=== PATIENT | female | born 1955 | race Caucasian/White ===

== ENCOUNTER → 2017-10-14 | Day surgery (SDC) | payer BC ==
[2017-10-11 11:15] VITALS: BMI 32.9
[~2017-10-14] MED LIST: LACTATED RINGERS 1,000 ML IV SCH; LIDOCAINE 1% 20 ML VIAL (10MG/ML) FOR IV START INTRADERMA ONE; LIDOCAINE 1% INJ 10MG/ML (20 ML MDV) ONE; PROPOFOL 10 MG/ML 20 ML VIAL IV ONE
[2017-10-14 11:25] VITALS: TEMP 98.1
[2017-10-14 11:40] LABS: Glucose,Whole Blood 119 mg/dL (75-99)
--- NOTE | 2017-10-14 12:37 | P.GSHP ---
History of Present Illness H&P Date: 10/14/17 Chief Complaint: GERD, diverticulitis This is a 62-year-old female referred from Dr. Bhavya Castellon. Patient presents today for EGD and colonoscopy. She's had complaints of GERD. She is a previous history of diverticulitis. Past Medical History Past Medical History: Diabetes Mellitus, Eye Disorder, GERD/Reflux, Hyperlipidemia, Hypertension Additional Past Medical History / Comment(s): bilat glaucoma History of Any Multi-Drug Resistant Organisms: None Reported Additional Past Surgical History / Comment(s): COLONOSCOPY Past Anesthesia/Blood Transfusion Reactions: Motion Sickness Smoking Status: Former smoker - Past Family History Mother Family Medical History: Cancer Brother(s) Family Medical History: Cancer Sister(s) Family Medical History: Cancer Medications and Allergies Home Medications Medication Instructions Recorded Confirmed Type 5-Hydroxytryptophan (5-Htp) [5-Htp 100 mg PO DAILY 10/11/17 10/14/17 History (Natrol)] Atorvastatin [Lipitor] 20 mg PO HS 10/11/17 10/14/17 History Cyanocobalamin (Vitamin B-12) 1,000 mcg PO DAILY 10/11/17 10/14/17 History [Vitamin B-12] Ergocalciferol [Vitamin D2] 50,000 unit PO WE 10/11/17 10/14/17 History L.acidoph,Paracasei, B.lactis 1 each PO DAILY 10/11/17 10/14/17 History [Probiotic] Lisinopril-Hctz 20-25 mg 1 each PO DAILY 10/11/17 10/14/17 History [Zestoretic 20-25] Magnesium Gluconate [Magonate] 500 mg PO DAILY 10/11/17 10/14/17 History Metoprolol Succinate [Toprol XL] 100 mg PO DAILY 10/11/17 10/14/17 History [place]-3 Fatty Acids/Fish Oil [Fish 1 each PO DAILY 10/11/17 10/14/17 History Oil 1,000 mg Softgel] metFORMIN HCL [Glucophage] 500 mg PO DAILY 10/11/17 10/14/17 History Allergies Allergy/AdvReac Type Severity Reaction Status Date / Time No Known Allergies Allergy Verified 10/14/17 11:10 Surgical - Exam Vital Signs Temp Pulse Resp BP Pulse Ox 98.1 F 60 18 131/79 97 11/16/17 11:07 10/14/17 11:07 10/14/17 11:07 10/14/17 11:07 10/14/17 11:07 - General well developed, no distress - Eyes PERRL - ENT normal pinna - Neck no masses - Respiratory normal expansion - Cardiovascular Rhythm: regular - Abdomen Abdomen: soft, non tender Results - Labs Abnormal Lab Results - Last 24 Hours (Table) 10/14/17 Range/Units 11:34 POC Glucose (mg/dL) 119 H (75-99) mg/dL Assessment and Plan Assessment: GERD, diverticulitis. We'll perform EGD and colonoscopy.
--- NOTE | 2017-10-14 12:58 | P.OP ---
Date of Procedure: 10/14/17 Preoperative Diagnosis: GERD Diverticulitis Postoperative Diagnosis: Antral gastritis Hiatal hernia Esophagitis Severe diverticulosis of sigmoid colon Incomplete colonoscopy secondary to patient's inability to retain air in the colon Severe external hemorrhoids Procedure(s) Performed: EGD Colonoscopy Anesthesia: MAC Surgeon: Jonh Osborne Pathology: other (Antrum, esophagus) Condition: stable Disposition: PACU Description of Procedure: The patient's placed on the endoscopy table in the lateral position. She received IV sedation. The gastroscope placed oropharynx and passed into the esophagus and into the stomach. The scope was then placed through the pylorus. The first and second portion of the duodenum appeared normal. Scope was then brought back the antrum and this was mildly inflamed and a biopsies performed. The scope was unretroflexed and remainder of the stomach appeared normal. There is moderate size hiatal hernia. The GE junction was at 38 cm. The distal esophagus appeared inflamed a biopsies performed. The proximal esophagus . Was visualized. The proximal esophagus appeared normal. Scope was withdrawn for patient. Next digital rectal exam was performed which revealed severe hemorrhoids. The flexible colonoscope was then placed patient anus scope then passed throughout the colon. The patient had a difficult time maintaining air in the colon. There was a large amount air escaping her anus. The scope was placed the level of 50 cm. He cannot be advanced any further due to tortuosity valve the patient 's inability to retain air in the colon. At this point scope was withdrawn. There was severe diverticulosis and sigmoid colon. Scope was then removed back the rectum and this appeared normal. Scope was withdrawn for patient. The patient was scheduled for a barium enema.
[2017-10-14 12:59] VITALS: RESP 16
[2017-10-14 14:27] VITALS: BP 148/79; PULSE 54
--- NOTE | 2017-10-14 16:45 | FL ---
EXAMINATION TYPE: FL barium enema DATE OF EXAM: 10/14/2017 COMPARISON: NONE HISTORY: Incomplete colonoscopy, history of diverticulosis TECHNIQUE: A double air contrast barium enema study is performed. FINDINGS: Hand Lacer: Preliminary abdominal films obtained and felt to be noncontributory Contrast followed by air was refluxed through the colon into the terminal ileum. The appendix is iden tified. Terminal ileum is identified. The sigmoid colon is redundant. Multiple diverticuli are within the mid sigmoid colon with some mild circumferential narrowing throug h this region. Additionally, note is made of some contrast tracking from a diverticulum along the col on wall wall suggestive for potentially acute diverticulitis. Contrast refluxes through the colon with multiple additional diverticula are identified throughout th e colon. No circumferential area of suspicious persistent narrowing is otherwise identified. There is moderate residual on post evacuation films. 3 minutes 8 seconds of fluoroscopy time was provided. 30 images were obtained. IMPRESSION: 1. Changes compatible with potentially acute diverticulitis mid sigmoid colon. Clinical correlation i s recommended. There is persistent narrowing of the colon through this region at this time. 2. Multiple additional diverticuli are present throughout the colon compatible with diverticulosis.
== END ==
LOC: ORWHC2ENDO 10:54
PROVIDERS: ATTEND Surgery
DX: K21.0 Gastro-esophageal reflux disease with esophagitis (principal); K29.50 Unspecified chronic gastritis without bleeding; K57.30 Diverticulosis of large intestine without perforation or abscess without bleeding; K44.9 Diaphragmatic hernia without obstruction or gangrene; K64.4 Residual hemorrhoidal skin tags; I10 Essential (primary) hypertension; E78.5 Hyperlipidemia, unspecified; E11.9 Type 2 diabetes mellitus without complications; H40.9 Unspecified glaucoma; Q43.8 Other specified congenital malformations of intestine; Z79.84 Long term (current) use of oral hypoglycemic drugs; Z79.899 Other long term (current) drug therapy; Z87.891 Personal history of nicotine dependence
CPT/HCPCS: 88305; 88342; 74270; 43239; 45330; J2001; J2704; 45378

== ENCOUNTER → 2017-11-23 | Outpatient (CLI) | payer BC ==
[2017-11-23 11:59] LABS: Calcium 9.4 mg/dL (8.4-10.2); Potassium 4.1 mmol/L (3.5-5.1)
[2017-11-23 12:53] LABS: HCT 35.4 % (34.0-46.0); HGB 11.2 gm/dL (11.4-16.0); MCH 28.1 pg (25.0-35.0); MCHC 31.5 g/dL (31.0-37.0); MCV 89.2 fL (80.0-100.0); Mean Platelet Volume 7.6; Platelet Count 423 k/uL (150-450); RBC 3.97 m/uL (3.80-5.40); RDW 14.3 % (11.5-15.5); WBC 9.4 k/uL (3.8-10.6)
== END | disposition home or self-care (01) ==
LOC: LABWHC1 11:24
PROVIDERS: ATTEND Internal Medicine
DX: D64.9 Anemia, unspecified (principal); E87.70 Fluid overload, unspecified; E87.6 Hypokalemia
CPT/HCPCS: 36415; 80048; 85027

== ENCOUNTER → 2018-04-05 | Outpatient (CLI) | payer BC ==
[2018-04-05 15:21] LABS: Basophils % (A) 0 %; Eosinophils # (A) 0.2 k/uL (0-0.7); Eosinophils % (A) 2 %; HGB 12.4 gm/dL (11.4-16.0); Lymphocytes # (A) 1.8 k/uL (1.0-4.8); Lymphocytes % (A) 20 %; MCH 28.2 pg (25.0-35.0); MCHC 33.5 g/dL (31.0-37.0); Mean Platelet Volume 8.3; Monocytes # (A) 0.5 k/uL (0-1.0); Monocytes % (A) 5 %; Neutrophils # (A) 6.2 k/uL (1.3-7.7); Neutrophils % (A) 70 %; Platelet Count 263 k/uL (150-450); RDW 13.7 % (11.5-15.5); WBC 8.8 k/uL (3.8-10.6)
== END | disposition home or self-care (01) ==
LOC: LABWHC1 14:41
PROVIDERS: ATTEND Surgery
DX: Z01.812 Encounter for preprocedural laboratory examination (principal); K43.2 Incisional hernia without obstruction or gangrene; D64.9 Anemia, unspecified; F17.200 Nicotine dependence, unspecified, uncomplicated
CPT/HCPCS: 36415; 85025; 93005

== ENCOUNTER 2018-04-12 10:19 | Day surgery (SDC) | payer BC ==
[2018-04-08 10:54] VITALS: BMI 36.6
[~2018-04-12 10:19] MED LIST changes: +DEXAMETHASONE SOD PHOSPHATE 10 MG/ML 1 ML VIAL IV ONE; +HEPARIN SODIUM,PORCINE 5,000 UNIT/ML 1 ML VIAL SQ ONE; -LIDOCAINE 1% 20 ML VIAL (10MG/ML) FOR IV START INTRADERMA ONE; +LIDOCAINE 1% 20 ML VIAL (10MG/ML) FOR IV START INTRADERMA PRN; -LIDOCAINE 1% INJ 10MG/ML (20 ML MDV) ONE; +MIDAZOLAM 2 MG/2 ML VIAL IV PRN; +MORPHINE SULFATE 2 MG/ML SYRINGE IV PRN; -PROPOFOL 10 MG/ML 20 ML VIAL IV ONE; +SCOPOLAMINE 1.5MG/72HR PATCH TRANSDERM ONE; +ceFAZolin IN SWFI 2 GM/20 ML SYRINGE IVP ONE
[2018-04-12 11:07] VITALS: TEMP 98.6
--- NOTE | 2018-04-12 11:07 | P.GSHP ---
History of Present Illness H&P Date: 04/12/18 Chief Complaint: Incisional hernia This is a 63-year-old female who presents today for laparoscopic robotic system repair of incisional hernia. Patient developed a incisional hernia at the superior portion of her lower midline scar. Past Medical History Past Medical History: Diabetes Mellitus, Eye Disorder, GERD/Reflux, Hyperlipidemia, Hypertension Additional Past Medical History / Comment(s): bilat glaucoma, HX diverticuli, HX hemmoroids, BORDERLINE DIABETIC History of Any Multi-Drug Resistant Organisms: None Reported Past Surgical History: Bowel Resection Additional Past Surgical History / Comment(s): COLONOSCOPY, hemmoroidectomy Past Anesthesia/Blood Transfusion Reactions: Motion Sickness Smoking Status: Former smoker - Past Family History Mother Family Medical History: Cancer Brother(s) Family Medical History: Cancer Sister(s) Family Medical History: Cancer Medications and Allergies Home Medications Medication Instructions Recorded Confirmed Type Atorvastatin [Lipitor] 20 mg PO HS 10/11/17 04/12/18 History Cyanocobalamin (Vitamin B-12) 1,000 mcg PO DAILY 10/11/17 04/12/18 History [Vitamin B-12] Ergocalciferol [Vitamin D2 50,000 unit PO WE 10/11/17 04/12/18 History (DRISDOL)] L.acidoph,Paracasei, B.lactis 1 cap PO DAILY 10/11/17 04/12/18 History [Probiotic] Magnesium Gluconate [Magonate] 500 mg PO HS 10/11/17 04/12/18 History Metoprolol Succinate [Toprol XL] 100 mg PO QAM 10/11/17 04/12/18 History [place]-3 Fatty Acids/Fish Oil [Fish 1 cap PO HS 10/11/17 04/12/18 History Oil 1,000 mg Softgel] Antacid 1 tab PO DAILY 11/04/17 04/12/18 History Calcium Polycarbophil [Fibercon] 625 mg PO DAILY 11/04/17 04/12/18 History Latanoprost Ophth [Xalatan 0.005%] 1 drops BOTH EYES HS 11/04/17 04/12/18 History Lisinopril [Zestril] 20 mg PO QAM 04/08/18 04/12/18 History Allergies Allergy/AdvReac Type Severity Reaction Status Date / Time No Known Allergies Allergy Verified 04/08/18 10:48 Surgical - Exam - General well developed, no distress - Eyes PERRL - ENT normal pinna - Neck no masses - Respiratory normal expansion - Cardiovascular Rhythm: regular - Abdomen Abdomen: soft, non tender Assessment and Plan Assessment: Incisional hernia. We'll perform laparoscopic robotic-assisted repair.
[2018-04-12] MEDS ORDERED: ONDANSETRON 4 MG/2 ML VIAL IVP ONE ×2 (11:13→13:22)
[2018-04-12 11:15] LABS: Glucose,Whole Blood 93 mg/dL (75-99)
[2018-04-12] MEDS ORDERED: MIDAZOLAM 2 MG/2 ML VIAL ONE (11:18)
[2018-04-12] MEDS ORDERED: PROPOFOL 10 MG/ML 20 ML VIAL IV ONE (11:18)
[2018-04-12] MEDS ORDERED: KETOROLAC 30 MG/ML 1 ML VIAL ONE (11:18)
[2018-04-12] MEDS ORDERED: GLYCOPYRROLATE 0.2 MG/ML 2 ML VIAL ONE (11:18)
[2018-04-12] MEDS ORDERED: ROCURONIUM BROMIDE 10 MG/ML 10 ML VIAL IV ONE (11:18)
[2018-04-12] MEDS ORDERED: NEOSTIGMINE 1 MG/ML 10 ML VIAL ONE (11:18)
[2018-04-12] MEDS ORDERED: SUCCINYLCHOLINE CHLORIDE 100 MG/5 ML SYR IV ONE (11:18)
[2018-04-12] MEDS ORDERED: LIDOCAINE 1% INJ 10MG/ML (20 ML MDV) ONE (11:18)
[2018-04-12] MEDS ORDERED: fentaNYL (PF) 50 MCG/ML 2 ML AMP ONE (11:18)
[2018-04-12] MEDS ORDERED: BUPIVACAINE (PF) 0.25% 30 ML VIAL SQ ONE (11:38)
[2018-04-12] MEDS ORDERED: LACTATED RINGERS 1,000 ML IV ONE ×2 (12:30→13:20)
--- NOTE | 2018-04-12 12:44 | P.OP ---
Date of Procedure: 04/12/18 Preoperative Diagnosis: Incisional hernia Postoperative Diagnosis: Incisional hernia Procedure(s) Performed: Her scopic robotic-assisted repair of incisional hernia Anesthesia: NATHAN Surgeon: Jonh Osborne Estimated Blood Loss (ml): 5 Pathology: none sent Condition: stable Disposition: PACU Description of Procedure: The patient was placed on the operating table in the supine position. He received general anesthesia. His abdomen was prepped and draped usual fashion. Using a 5 mm optical trocar under direct visualization the peritoneal cavity was entered in the left upper quadrant. The abdomen was then insufflated. The laparoscope was placed back into the perineal cavity. Next a 8 mm robotic trocar was placed in the left lower quadrant and a 12 mm robotic trocar was placed in the left lateral position. The original 5 mm trocar was exchanged for a 8 mm robotic trocar. The patient's placed in the left side up position. And the patient was docked to the robot. The incisional hernia was visualized. Using hook cautery the peritoneum over the incisional hernia was excised. The fascial opening was repaired using 0V LOC suture. Next a piece of 11 cm round ventral light ST mesh was placed into the. Cavity and secured with 2 OV lock suture. The patient was undocked the robot. The needles were retrieved. The fascia of the 12 mm trocar site was closed with 0 Ethibond suture. Skin was closed interrupted 3-0 Monocryl suture. Dermabond dressings was applied. Patient tolerated procedure well and was sent to recovery room stable condition.
[2018-04-12 13:20] LABS: Glucose,Whole Blood 164 mg/dL (75-99)
[2018-04-12] MEDS ORDERED: MORPHINE SULFATE 4 MG/ML SYRINGE IVP ONE (13:38)
[2018-04-12 13:46] VITALS: RESP 16
[2018-04-12] MEDS ORDERED: HYDROcodone/APAP 7.5-325MG 1 EACH TAB PO ONE (14:33)
[2018-04-12 14:45] VITALS: BP 146/85; PULSE 66
== END 2018-04-12 15:11 | disposition home or self-care (01) ==
LOC: OR 10:19
PROVIDERS: ATTEND Surgery
DX: K43.2 Incisional hernia without obstruction or gangrene (principal); K21.9 Gastro-esophageal reflux disease without esophagitis; H40.9 Unspecified glaucoma; E78.5 Hyperlipidemia, unspecified; I10 Essential (primary) hypertension; R73.03 Prediabetes; E66.01 Morbid (severe) obesity due to excess calories; Z68.36 Body mass index [BMI] 36.0-36.9, adult; Z90.49 Acquired absence of other specified parts of digestive tract; Z79.899 Other long term (current) drug therapy; F17.210 Nicotine dependence, cigarettes, uncomplicated
CPT/HCPCS: 86900; 86901; 86850; 49654; C1781; J2250; J2270 ×2; J1100; J2710; J2405; J2001; J3010; J1885; J0330; J2704; J0690

== ENCOUNTER → 2019-02-13 | Outpatient (CLI) | payer BC ==
[2019-02-13 13:48] VITALS: BP 145/85; PULSE 74; TEMP 98; BMI 42.0
[2019-02-13 14:19] LABS: HCT 41.5 % (34.0-46.0); HGB 13.8 gm/dL (11.4-16.0); MCH 28.6 pg (25.0-35.0); MCHC 33.1 g/dL (31.0-37.0); MCV 86.4 fL (80.0-100.0); Mean Platelet Volume 8.6; Platelet Count 291 k/uL (150-450); RDW 13.5 % (11.5-15.5); WBC 9.2 k/uL (3.8-10.6)
--- NOTE | 2019-02-13 16:25 | P.HPBAR ---
Bariatric H&P - History & Physicial H&P Date: 02/13/19 History & Physicial: Visit/CC: initial clinic visit Patient initial contact: Initial weight: Initial weight in pounds: Height: 5 ft Initial BMI: Last weight: Current weight: 97.522 kg Current weight in pounds: 215.00 Current BMI: 42.0 [place] body weight (based on NIH guidelines): 45.359 kg Excess body weight loss: The patient is a 63 year-old F who presents for Bariatric Assessment. Patient presents today for initial consultation. She had been a previous seminar in January 2019. She's had lifetime problems obesity. Her BMI is 42. Past Medical History Past Medical History: Diabetes Mellitus, Eye Disorder, GERD/Reflux, Hyperlipidemia, Hypertension Additional Past Medical History / Comment(s): bilat glaucoma, diverticuli, hemmoroids History of Any Multi-Drug Resistant Organisms: None Reported Additional Past Surgical History / Comment(s): COLONOSCOPY, hemmoroidectomy Past Anesthesia/Blood Transfusion Reactions: Motion Sickness Past Psychological History: No Psychological Hx Reported Smoking Status: Former smoker Past Alcohol Use History: None Reported Additional Past Alcohol Use History / Comment(s): QUIT SMOKING 1996. Past Drug Use History: Marijuana Additional Drug Use History / Comment(s): USES 12 JOINTS DAILY-INSTRUCTED TO REFRAIN FROM USE AT LEAST 24 HOURS PRIOR TO PROCEDURE - Past Family History Mother Family Medical History: Cancer Brother(s) Family Medical History: Cancer Sister(s) Family Medical History: Cancer Surgical - Exam Vital Signs Temp Pulse BP 98 F 74 145/85 02/13/19 13:42 02/13/19 13:42 02/13/19 13:42 - General well developed, well nourished, no distress - Eyes PERRL - ENT normal pinna - Neck no masses - Respiratory normal expansion - Cardiovascular Rhythm: regular - Abdomen Abdomen: soft, non tender Results - Labs 02/13/19 14:00 Bariatric Assessment & Plan Plan: Morbid obesity with severe comorbidities. Patient will undergo EGD and laparoscopic sleeve gastrectomy once her insurance authorization is complete. Bariatric Checklist Checklist: Plan: Checklist: EGD: 1. Hiatal hernia: 2. H. Pylori: HgbA1c: Vitamin D: Smoking: Former smoker Primary care physician referral: dr junior boland Psychiatry clearance: Cardiology clearance: Sleep study: Diet journal: VTE risk score: VTE risk level: Rehab needs at discharge:
[2019-02-13 18:40] LABS: Albumin 4.7 g/dL (3.80-4.90); Albumin/Globulin Ratio 1.68 (1.60-3.17); Anion Gap 4.7 mmol/L (4.00-12.00); Carbon Dioxide 24.3 mmol/L (21.6-31.8); Globulin 2.8 g/dL (1.6-3.3); Potassium 4.6 mmol/L (3.5-5.5); Total Bilirubin 0.5 mg/dL (0.3-1.2); Total Protein 7.5 g/dL (6.2-8.2)
[2019-02-13 19:38] LABS: Hemoglobin A1C 8.5 % (4.0-6.0)
== END | disposition home or self-care (01) ==
LOC: BARWHC3 12:53
PROVIDERS: ATTEND Surgery
DX: E66.01 Morbid (severe) obesity due to excess calories (principal); E44.0 Moderate protein-calorie malnutrition; E55.9 Vitamin D deficiency, unspecified; E11.9 Type 2 diabetes mellitus without complications; E78.5 Hyperlipidemia, unspecified; I10 Essential (primary) hypertension; Z68.41 Body mass index [BMI] 40.0-44.9, adult; Z87.891 Personal history of nicotine dependence
CPT/HCPCS: 80053; 82306; 82607; 83036; 84425; 84443; 85027; 93005; 99211

== ENCOUNTER 2019-04-07 07:04 | Day surgery (SDC) | payer BC ==
[2019-04-04 15:55] VITALS: BMI 39.0
[~2019-04-07 07:04] MED LIST changes: -DEXAMETHASONE SOD PHOSPHATE 10 MG/ML 1 ML VIAL IV ONE; -HEPARIN SODIUM,PORCINE 5,000 UNIT/ML 1 ML VIAL SQ ONE; -MIDAZOLAM 2 MG/2 ML VIAL IV PRN; -MORPHINE SULFATE 2 MG/ML SYRINGE IV PRN; -SCOPOLAMINE 1.5MG/72HR PATCH TRANSDERM ONE; -ceFAZolin IN SWFI 2 GM/20 ML SYRINGE IVP ONE
[2019-04-07 07:27] VITALS: RESP 16; TEMP 98.3
[2019-04-07 07:40] LABS: Glucose,Whole Blood 140 mg/dL (75-99)
[2019-04-07] MEDS ORDERED: LACTATED RINGERS 1,000 ML IV ONE (07:42)
[2019-04-07] MEDS ORDERED: GLYCOPYRROLATE 0.2 MG/ML 2 ML VIAL ONE (07:43)
[2019-04-07] MEDS ORDERED: PROPOFOL 10 MG/ML 20 ML VIAL IV ONE (07:43)
[2019-04-07] MEDS ORDERED: LIDOCAINE 1% INJ 10MG/ML (20 ML MDV) ONE (07:43)
[2019-04-07] MEDS ORDERED: KETAMINE 10 MG/ML 20 ML VIAL ONE (07:43)
--- NOTE | 2019-04-07 07:57 | P.GSHP ---
History of Present Illness H&P Date: 04/07/19 Chief Complaint: Morbid obesity, GERD, dysphagia This a 64-year-old female who presents today for EGD. Patient rents today for workup of GERD and dysphagia. She is undergoing evaluation for sleeve gastrectomy. Past Medical History Past Medical History: Diabetes Mellitus, Eye Disorder, GERD/Reflux, Hyperlipidemia, Hypertension Additional Past Medical History / Comment(s): bilat glaucoma, diverticuli, hemor rhoids History of Any Multi-Drug Resistant Organisms: None Reported Past Surgical History: Bowel Resection Additional Past Surgical History / Comment(s): COLONOSCOPY, hemorrhoidectomy Past Anesthesia/Blood Transfusion Reactions: Motion Sickness Smoking Status: Former smoker - Past Family History Mother Family Medical History: Cancer Brother(s) Family Medical History: Cancer Sister(s) Family Medical History: Cancer Medications and Allergies Home Medications Medication Instructions Recorded Confirmed Type Atorvastatin [Lipitor] 20 mg PO HS 10/11/17 04/07/19 History Cyanocobalamin (Vitamin B-12) 1,000 mcg PO DAILY 10/11/17 04/07/19 History [Vitamin B-12] Ergocalciferol [Vitamin D2 50,000 unit PO WE 10/11/17 04/07/19 History (DRISDOL)] Magnesium Gluconate [Magonate] 500 mg PO HS 10/11/17 04/07/19 History Metoprolol Succinate [Toprol XL] 100 mg PO HS 10/11/17 04/07/19 History Calcium Polycarbophil [Fibercon] 625 mg PO DAILY 11/04/17 04/07/19 History Lisinopril [Zestril] 20 mg PO HS 04/08/18 04/07/19 History Docusate [Colace] 100 mg PO BID #20 capsule 04/12/18 04/07/19 Rx metFORMIN HCL 1,000 mg PO BID 04/04/19 04/07/19 History Allergies Allergy/AdvReac Type Severity Reaction Status Date / Time No Known Allergies Allergy Verified 04/07/19 07:19 Surgical - Exam Vital Signs Temp Pulse Resp BP Pulse Ox 98.3 F 63 16 149/67 100 04/07/19 07:25 04/07/19 07:25 04/07/19 07:25 04/07/19 07:25 04/07/19 07:25 - General well developed, well nourished, no distress - Eyes PERRL - ENT normal pinna - Neck no masses - Respiratory normal expansion - Cardiovascular Rhythm: regular - Abdomen Abdomen: soft, non tender Results - Labs Abnormal Lab Results - Last 24 Hours (Table) 04/07/19 Range/Units 07:34 POC Glucose (mg/dL) 140 H (75-99) mg/dL Assessment and Plan Assessment: GERD morbid obesity, BMI of 40. Patient will undergo EGD.
--- NOTE | 2019-04-07 07:59 | P.OP ---
Date of Procedure: 04/07/19 Preoperative Diagnosis: GERD, morbid obesity Postoperative Diagnosis: Antral gastritis Hiatal hernia Mild esophagitis BMI 40 Procedure(s) Performed: EGD Anesthesia: MAC Surgeon: Jonh Osborne Pathology: other (Antrum, esophagus) Condition: stable Disposition: PACU Description of Procedure: The patient's placed on the endoscopy table in the lateral position. She received IV sedation. The gastroscope placed oropharynx and passed in the esophagus and into the stomach. Scope was then placed through the pylorus. The first and second portion of the duodenum appeared normal. Scope was then brought back the antrum and this was mildly inflamed. A biopsy was performed. The scope was then retroflexed and the remainder of the stomach appeared normal. There was a moderate size hiatal hernia. The GE junction was at 38 cm. The distal esophagus appeared mildly inflamed and a biopsies performed. Scope was withdrawn for patient.
[2019-04-07 08:11] VITALS: BP 136/89; PULSE 72
== END 2019-04-07 08:31 | disposition home or self-care (01) ==
LOC: ORWHC2ENDO 07:04
PROVIDERS: ATTEND Surgery
DX: K29.50 Unspecified chronic gastritis without bleeding (principal); K44.9 Diaphragmatic hernia without obstruction or gangrene; R13.10 Dysphagia, unspecified; K21.0 Gastro-esophageal reflux disease with esophagitis; I10 Essential (primary) hypertension; Z87.891 Personal history of nicotine dependence; E78.5 Hyperlipidemia, unspecified; H40.9 Unspecified glaucoma; Z90.49 Acquired absence of other specified parts of digestive tract; E66.01 Morbid (severe) obesity due to excess calories; Z68.41 Body mass index [BMI] 40.0-44.9, adult; E11.9 Type 2 diabetes mellitus without complications; Z79.84 Long term (current) use of oral hypoglycemic drugs; Z79.899 Other long term (current) drug therapy
CPT/HCPCS: 88305; 43239; J2001; J2704

== ENCOUNTER → 2019-05-01 | Outpatient (CLI) | payer BC ==
[2019-05-01 13:19] VITALS: BP 127/75; PULSE 62; TEMP 98.5; BMI 38.9
--- NOTE | 2019-05-01 15:39 | P.HPBAR ---
Bariatric H&P - History & Physicial H&P Date: 05/01/19 History & Physicial: Visit/CC: gastric sleeve consult/EGD results (completed 04/07/19) Patient initial contact: Initial weight: 97.522 kg Initial weight in pounds: 215.00 Height: 5 ft Initial BMI: 42.0 Last weight: Current weight: 90.537 kg Current weight in pounds: 199.60 Current BMI: 38.9 [place] body weight (based on NIH guidelines): 45.359 kg Excess body weight loss: 13.3% The patient is a 64 year-old F who presents for Bariatric Assessment. Patient presents today for presurgical consultation. She underwent recent EGD. She has lost 16 pounds her last visit. Her BMI is 39. Past Medical History Past Medical History: Diabetes Mellitus, Eye Disorder, GERD/Reflux, Hyperlipidemia, Hypertension Additional Past Medical History / Comment(s): bilat glaucoma, diverticuli, hemorrhoids History of Any Multi-Drug Resistant Organisms: None Reported Past Surgical History: Bowel Resection Additional Past Surgical History / Comment(s): COLONOSCOPY, hemorrhoidectomy Past Anesthesia/Blood Transfusion Reactions: Motion Sickness Smoking Status: Former smoker - Past Family History Mother Family Medical History: Cancer Brother(s) Family Medical History: Cancer Sister(s) Family Medical History: Cancer Surgical - Exam Vital Signs Temp Pulse BP 98.5 F 62 127/75 05/01/19 13:16 05/01/19 13:16 05/01/19 13:16 - General well developed, well nourished, no distress - Abdomen Abdomen: soft, non tender Bariatric Assessment & Plan Plan: Morbid obesity, BMI 39. Patient will follow-up in 2 months. She will have her authorization for sleeve gastrectomy once her physician directed weight loss visits have been completed. Bariatric Checklist Checklist: Plan: Checklist: EGD: 1. Hiatal hernia: 2. H. Pylori: HgbA1c: Vitamin D: Smoking: Former smoker Primary care physician referral: Bhavya Castellon (pt see's Jayne Carpenter.P. at [facility]) Psychiatry clearance: Cardiology clearance: Sleep study: Diet journal: VTE risk score: VTE risk level: Rehab needs at discharge:
== END | disposition home or self-care (01) ==
LOC: BARWHC3 13:07
PROVIDERS: ATTEND Surgery
DX: E66.01 Morbid (severe) obesity due to excess calories (principal); Z68.39 Body mass index [BMI] 39.0-39.9, adult; Z87.891 Personal history of nicotine dependence
CPT/HCPCS: 99211

== ENCOUNTER → 2019-07-24 | Outpatient (CLI) | payer BC ==
[2019-07-24 13:10] VITALS: BMI 38.8
[2019-07-24 13:53] VITALS: BP 126/82; PULSE 62; TEMP 98.7
--- NOTE | 2019-07-24 15:54 | P.HPBAR ---
Bariatric H&P - History & Physicial H&P Date: 07/24/19 History & Physicial: Visit/CC: bariatric Consult Patient initial contact: Initial weight: 97.522 kg Initial weight in pounds: 215.00 Height: 5 ft Initial BMI: 42.0 Last weight: Current weight: 90.22 kg Current weight in pounds: 198.90 Current BMI: 38.8 [place] body weight (based on NIH guidelines): 45.359 kg Excess body weight loss: 13.9% The patient is a 64 year-old F who presents for Bariatric Assessment. Patient presents today for presurgical consultation. Patient's platelet. Her BMI is 39. Patient position of the sleeve gastrectomy. Past Medical History Past Medical History: Diabetes Mellitus, Eye Disorder, GERD/Reflux, Hyperlipidemia, Hypertension Additional Past Medical History / Comment(s): bilat glaucoma, diverticuli, hemorrhoids History of Any Multi-Drug Resistant Organisms: None Reported Past Surgical History: Bowel Resection Additional Past Surgical History / Comment(s): COLONOSCOPY, hemorrhoidectomy Past Anesthesia/Blood Transfusion Reactions: Motion Sickness Smoking Status: Former smoker - Past Family History Mother Family Medical History: Cancer Brother(s) Family Medical History: Cancer Sister(s) Family Medical History: Cancer Surgical - Exam Vital Signs Temp Pulse BP 98.7 F 62 126/82 07/24/19 11:57 07/24/19 11:57 07/24/19 11:57 - General well developed, well nourished, no distress - Eyes PERRL - Abdomen Abdomen: soft, non tender Bariatric Assessment & Plan Plan: Morbid obesity BMI 39. Patient was scheduled for EGD. Patient's excellent understanding sleeve gastrectomy. We went over the risks and benefits of procedure. She understands the risk of gastric staple line disruption, bleeding or scarring. Bariatric Checklist Checklist: Plan: Checklist: EGD: 1. Hiatal hernia: 2. H. Pylori: HgbA1c: Vitamin D: Smoking: Former smoker Primary care physician referral: Bhavya Castellon (pt see's Jayne Carpenter.P. at [facility]) Psychiatry clearance: Cardiology clearance: Sleep study: Diet journal: VTE risk score: VTE risk level: Rehab needs at discharge:
== END | disposition home or self-care (01) ==
LOC: BARWHC3 08:45
PROVIDERS: ATTEND Surgery
DX: E66.01 Morbid (severe) obesity due to excess calories (principal); Z68.39 Body mass index [BMI] 39.0-39.9, adult; Z87.891 Personal history of nicotine dependence
CPT/HCPCS: 97804; 99211

== ENCOUNTER → 2019-08-28 | Outpatient (CLI) | payer BC ==
[2019-08-28 13:20] VITALS: BP 149/71; PULSE 62; RESP 16; TEMP 97.6; BMI 39.0
--- NOTE | 2019-08-28 14:39 | P.HPBAR ---
Bariatric H&P - History & Physicial H&P Date: 08/28/19 History & Physicial: Visit/CC: pre-surg Patient initial contact: Initial weight: 97.522 kg Initial weight in pounds: 215.00 Height: 5 ft Initial BMI: 42.0 Last weight: Current weight: 90.718 kg Current weight in pounds: 200.00 Current BMI: 39.0 [place] body weight (based on NIH guidelines): 45.359 kg Excess body weight loss: 13.0% The patient is a 64 year-old F who presents for Bariatric Assessment. Patient presents today for presurgical consultation. Patient wished undergo sleeve gastrectomy. Her BMI is 39. She is morbidly obese. Past Medical History Past Medical History: Diabetes Mellitus, Eye Disorder, GERD/Reflux, Hyperlipidemia, Hypertension Additional Past Medical History / Comment(s): bilat glaucoma, diverticuli, hemorrhoids History of Any Multi-Drug Resistant Organisms: None Reported Past Surgical History: Bowel Resection Additional Past Surgical History / Comment(s): COLONOSCOPY, hemorrhoidectomy Past Anesthesia/Blood Transfusion Reactions: Motion Sickness Past Psychological History: No Psychological Hx Reported Smoking Status: Former smoker Past Alcohol Use History: None Reported Additional Past Alcohol Use History / Comment(s): QUIT SMOKING 1996. Past Drug Use History: Marijuana Additional Drug Use History / Comment(s): USES 12 JOINTS DAILY-INSTRUCTED TO REFRAIN FROM USE AT LEAST 24 HOURS PRIOR TO PROCEDURE - Past Family History Mother Family Medical History: Cancer Brother(s) Family Medical History: Cancer Sister(s) Family Medical History: Cancer Surgical - Exam Vital Signs Temp Pulse Resp BP 97.6 F 62 16 149/71 08/28/19 13:16 08/28/19 13:16 08/28/19 13:16 08/28/19 13:16 - General well developed, well nourished, no distress - Eyes PERRL - ENT normal pinna - Neck no masses - Respiratory normal expansion - Cardiovascular Rhythm: regular - Abdomen Abdomen: soft, non tender Bariatric Assessment & Plan Plan: Morbid obesity with BMI of 39. Patient will undergo sleeve gastrectomy once her insurance authorization is completed. Bariatric Checklist Checklist: Plan: Checklist: EGD: 1. Hiatal hernia: 2. H. Pylori: HgbA1c: Vitamin D: Smoking: Former smoker Primary care physician referral: Bhavya Castellon (pt see's Estella Shafer NCeferino at [facility]) Psychiatry clearance: Cardiology clearance: Sleep study: Diet journal: VTE risk score: VTE risk level: Rehab needs at discharge:
== END | disposition home or self-care (01) ==
LOC: BARWHC3 13:03
PROVIDERS: ATTEND Surgery
DX: E66.01 Morbid (severe) obesity due to excess calories (principal); Z68.39 Body mass index [BMI] 39.0-39.9, adult; Z87.891 Personal history of nicotine dependence; Z90.49 Acquired absence of other specified parts of digestive tract
CPT/HCPCS: 99211

== ENCOUNTER → 2019-10-04 | Outpatient (CLI) | payer BC ==
[2019-10-04 14:16] LABS: Basophils # (A) 0.2 k/uL (0-0.2); Basophils % (A) 2 %; Eosinophils # (A) 0.4 k/uL (0-0.7); Eosinophils % (A) 5 %; HCT 37.2 % (34.0-46.0); HGB 12.1 gm/dL (11.4-16.0); Lymphocytes # (A) 2.1 k/uL (1.0-4.8); Lymphocytes % (A) 26 %; MCH 29.9 pg (25.0-35.0); MCHC 32.6 g/dL (31.0-37.0); MCV 91.8 fL (80.0-100.0); Mean Platelet Volume 8.1; Monocytes # (A) 0.5 k/uL (0-1.0); Monocytes % (A) 6 %; Neutrophils # (A) 4.9 k/uL (1.3-7.7); Neutrophils % (A) 60 %; Platelet Count 272 k/uL (150-450); RBC 4.05 m/uL (3.80-5.40); RDW 13.2 % (11.5-15.5); WBC 8.3 k/uL (3.8-10.6)
[2019-10-04 20:10] LABS: African American GFR (CKD) 46.6 (60.0-200.0); Albumin 4.5 g/dL (3.80-4.90); Albumin/Globulin Ratio 2.05 (1.60-3.17); Anion Gap 10.5 mmol/L (4.00-12.00); BUN/Creat Ratio 13.57 Ratio (12.00-20.00); Calcium 9.7 mg/dL (8.7-10.3); Carbon Dioxide 22.5 mmol/L (21.6-31.8); Globulin 2.2 g/dL (1.6-3.3); Potassium 4.2 mmol/L (3.5-5.5); Total Bilirubin 0.3 mg/dL (0.2-1.2); Total Protein 6.7 g/dL (6.2-8.2)
== END | disposition home or self-care (01) ==
LOC: LABWHC1 12:50
PROVIDERS: ATTEND Surgery
DX: Z01.812 Encounter for preprocedural laboratory examination (principal)
CPT/HCPCS: 36415; 80053; 85025; 93005

== ENCOUNTER 2019-10-20 07:45 | Inpatient (IN) | payer BC ==
[~2019-10-20 07:45] MED LIST changes: +DEXAMETHASONE SOD PHOSPHATE 10 MG/ML 1 ML VIAL IV ONE; +ENOXAPARIN 40 MG/0.4 ML SYRINGE SQ ONE; +HYDROmorphone 0.5 MG/0.5 ML SYRINGE IVP PRN; -LACTATED RINGERS 1,000 ML IV SCH; +ONDANSETRON 4 MG/2 ML VIAL IVP ONE; +fentaNYL (PF) 50 MCG/ML 2 ML AMP IV PRN
[2019-10-20] MEDS: LACTATED RINGERS 1,000 ML IV SCH (09:35)
[2019-10-20] MEDS ORDERED: SCOPOLAMINE 1.5MG/72HR PATCH TRANSDERM ONE (09:35)
--- NOTE | 2019-10-20 09:55 | P.GSHP ---
History of Present Illness H&P Date: 10/20/19 Chief Complaint: Morbid obesity, GERD This is a 64-year-old female who presents today for laparoscopic sleeve gastrectomy and laparoscopic repair of hiatal hernia. Patient has had lifetime problems obesity. Her BMI is 37. She is also had issues with GERD. Patient aware the risks of surgery including conversion to the open procedure and injury to the stomach liver spleen. She'll the risk of GERD, dysphagia and gastric staple line disruption, bleeding or scarring. Past Medical History Past Medical History: Diabetes Mellitus, Eye Disorder, GERD/Reflux, Hyperlipidemia, Hypertension, Musculoskeletal Disorder Additional Past Medical History / Comment(s): bilat glaucoma, diverticuli, hemorrhoids, Back pain, Hiatal hernia. History of Any Multi-Drug Resistant Organisms: None Reported Past Surgical History: Bowel Resection Additional Past Surgical History / Comment(s): COLONOSCOPY, EGD, Hemorrhoidectomy Past Anesthesia/Blood Transfusion Reactions: Motion Sickness Past Psychological History: No Psychological Hx Reported Smoking Status: Former smoker Past Alcohol Use History: None Reported Additional Past Alcohol Use History / Comment(s): Smoked 1 year, QUIT SMOKING 1996. Past Drug Use History: Marijuana Additional Drug Use History / Comment(s): USES 12 JOINTS DAILY-INSTRUCTED TO REFRAIN FROM USE AT LEAST 24 HOURS PRIOR TO PROCEDURE - Past Family History Mother Family Medical History: Cancer Additional Family Medical History / Comment(s): lung CA Brother(s) Family Medical History: Cancer Sister(s) Family Medical History: Cancer Additional Family Medical History / Comment(s): breast CA Medications and Allergies Home Medications Medication Instructions Recorded Confirmed Type Atorvastatin [Lipitor] 20 mg PO HS 10/11/17 10/13/19 History Ergocalciferol [Vitamin D2 50,000 unit PO WE 10/11/17 10/13/19 History (DRISDOL)] Metoprolol Succinate [Toprol XL] 100 mg PO HS 10/11/17 10/13/19 History Lisinopril [Zestril] 20 mg PO HS 04/08/18 10/13/19 History metFORMIN HCL 1,000 mg PO BID 04/04/19 10/13/19 History Calcium Citrate 600 mg PO TID 08/28/19 10/13/19 History Latanoprost Ophth [Xalatan 0.005%] 1 drop BOTH EYES HS 10/13/19 10/13/19 History Multivit-Minerals/Folic Acid 150 mcg PO HS 10/13/19 10/13/19 History [Centrum Multigummies] Psyllium Husk [Metamucil] 10 cap PO BID 10/13/19 10/13/19 History Ranitidine HCl [Zantac] 150 mg PO DAILY 10/13/19 10/13/19 History Allergies Allergy/AdvReac Type Severity Reaction Status Date / Time No Known Allergies Allergy Verified 10/13/19 14:41 Surgical - Exam - General well developed, well nourished, no distress - Eyes PERRL - ENT normal pinna - Neck no masses - Respiratory normal expansion - Cardiovascular Rhythm: regular - Abdomen Abdomen: soft, non tender Assessment and Plan Plan: For obesity, BMI 37 GERD We'll perform laparoscopic sleeve gastrectomy with repair of hiatal hernia.
[2019-10-20 10:01] LABS: Glucose,Whole Blood 133 mg/dL (75-99)
[2019-10-20] MEDS ORDERED: PROPOFOL 10 MG/ML 20 ML VIAL IV ONE (10:26)
[2019-10-20] MEDS ORDERED: NEOSTIGMINE 1 MG/ML 10 ML VIAL ONE (10:26)
[2019-10-20] MEDS ORDERED: ROCURONIUM BROMIDE 10 MG/ML 10 ML VIAL IV ONE (10:26)
[2019-10-20] MEDS ORDERED: KETOROLAC 30 MG/ML 1 ML VIAL ONE (10:26)
[2019-10-20] MEDS ORDERED: MIDAZOLAM 2 MG/2 ML VIAL ONE (10:26)
[2019-10-20] MEDS ORDERED: SUCCINYLCHOLINE CHLORIDE 100 MG/5 ML SYR IV ONE (10:26)
[2019-10-20] MEDS ORDERED: ePHEDrine SULFATE/0.9% NACL/PF 50 MG/5 ML SYRINGE IV ONE (10:26)
[2019-10-20] MEDS ORDERED: LIDOCAINE 1% INJ 10MG/ML (20 ML MDV) ONE (10:26)
[2019-10-20] MEDS ORDERED: PHENYLEPHRINE-0.9% NACL SYG 1 MG/10 ML SYRINGE ONE (10:26)
[2019-10-20] MEDS ORDERED: GLYCOPYRROLATE 0.2 MG/ML 2 ML VIAL ONE (10:26)
[2019-10-20] MEDS ORDERED: fentaNYL (PF) 50 MCG/ML 2 ML AMP ONE (10:26)
[2019-10-20] MEDS ORDERED: BUPIVACAINE (PF) 0.25% 30 ML VIAL SQ ONE (10:56)
[2019-10-20] MEDS ORDERED: LACTATED RINGERS 1,000 ML IV ONE ×2 (11:24)
[2019-10-20] MEDS ORDERED: diphenhydrAMINE 50 MG/ML 1 ML VIAL IVP PRN (12:16)
[2019-10-20] MEDS ORDERED: SIMETHICONE 40 MG/0.6 ML DROPS 2,000 MG/30 ML BOTTLE PO PRN (12:16)
[2019-10-20] MEDS ORDERED: HYDROmorphone 1 MG/ML 1 ML SYRINGE IVP PRN (12:16)
[2019-10-20] MEDS ORDERED: HYOSCYAMINE ORAL DROPS 1.875 MG/15 ML BOTTLE PO PRN (12:16)
[2019-10-20] MEDS ORDERED: NALOXONE 0.4 MG/ML 1 ML VIAL IV PRN (12:16)
--- NOTE | 2019-10-20 12:28 | P.OP ---
Date of Procedure: 10/20/19 Preoperative Diagnosis: Morbid obesity GERD Postoperative Diagnosis: Morbid obesity GERD Procedure(s) Performed: Laparoscopic repair of hiatal hernia Laparoscopic sleeve gastrectomy Anesthesia: NATHAN Surgeon: Jonh Osborne Estimated Blood Loss (ml): 10 Pathology: other (Stomach) Condition: stable Disposition: PACU Description of Procedure: The patient was placed on the operating room table in the supine position. She received general anesthesia and then was placed in dorsal lithotomy position. Her abdomen was prepped and draped in sterile fashion. The skin incision sites were anesthetized 1% local Xylocaine. And then the skin was incised with an 11 blade in the left lateral position. Using a blade less trocar under direct visualization the peritoneal cavity was entered. The abdomen was insufflated and then a 5 mm laparoscope was placed into the peritoneal cavity. A 5 mm trocar was placed in the right epigastric, and right lateral position. The patient had a large incisional hernia which extended above the umbilicus. A 15 mm trocar was placed in the supra-umbilical position above the incisional hernia. and another 5 mm trocar was placed in the left lateral position. The left lateral lobe of the liver was retracted. The stomach was visualized. There was a moderate size hiatal hernia. Using the Harmonic scissors the hiatus was dissected. The hiatal hernia was then repaired using 2-0 Ethibond suture. The greater curvature of the stomach was then dissected using the Harmonic scissors. The dissection occurred approximately 5 cm from the pylorus to the level of the left bal. n. At this point a 40-Micronesian bougie dilator was placed the oropharynx and passed into the esophagus and into the stomach by the CLAIM CLINICIAN. The sleeve gastrectomy was performed by using the powered echelon stapler with a seam guard buttress material. Sequential firings of the stapler were performed. The gastric remnant was then brought out through the 15 mm trocar site. The dilator was withdrawn. And a orogastric tube was replaced into the stomach. The stomach was insufflated with 500 mL of methylene blue normal saline. There was no evidence of extravasation. The abdomen was irrigated there is no bleeding seen. The Ponce-Lisa device was used to close the 15 mm trocar with 0 Vicryl. Skin was closed with interrupted 3-0 Monocryl sutures once the trochars withdrawn. Dermabond dressing was applied. Patient was sent to recovery in stable condition.
[2019-10-20 12:42] LABS: Glucose,Whole Blood 250 mg/dL (75-99)
[2019-10-20] MEDS ORDERED: INSULIN ASPART (NovoLOG) 100 UNIT/ML VIAL SQ ONE (12:48)
[2019-10-20] MEDS: ONDANSETRON 4 MG/2 ML VIAL IVP PRN ×2 (14:11→20:30)
[2019-10-20] MEDS: 0.9% NACL WITH KCL 20 MEQ/L 1,000 ML IV SCH ×2 (14:56→21:41)
[2019-10-20] MEDS: ALBUTEROL NEBULIZED 2.5 MG/3 ML INHALATION SCH ×2 (16:11→20:49)
[2019-10-20 17:04] LABS: Glucose,Whole Blood 135 mg/dL (75-99)
[2019-10-20] MEDS: KETOROLAC 30 MG/ML 1 ML VIAL IVP SCH ×2 (17:24→23:32)
[2019-10-20] MEDS ORDERED: SODIUM CHLORIDE 0.9% 500 ML 500 ML IV ONE (21:36)
[2019-10-20] MEDS: ENOXAPARIN 40 MG/0.4 ML SYRINGE SQ SCH (21:41)
[2019-10-21] MEDS: 0.9% NACL WITH KCL 20 MEQ/L 1,000 ML IV SCH (03:51)
[2019-10-21] MEDS: ONDANSETRON 4 MG/2 ML VIAL IVP PRN (05:19)
[2019-10-21] MEDS: KETOROLAC 30 MG/ML 1 ML VIAL IVP SCH ×2 (05:19→11:37)
[2019-10-21] MEDS: LACTATED RINGERS 1,000 ML IV SCH (05:45)
[2019-10-21 07:08] LABS: Basophils % (A) 0 %; Eosinophils % (A) 0 %; HCT 31.5 % (34.0-46.0); HGB 10.7 gm/dL (11.4-16.0); Lymphocytes # (A) 0.9 k/uL (1.0-4.8); Lymphocytes % (A) 7 %; MCH 30.5 pg (25.0-35.0); MCV 89.6 fL (80.0-100.0); Mean Platelet Volume 7.3; Monocytes # (A) 0.7 k/uL (0-1.0); Monocytes % (A) 6 %; Neutrophils # (A) 11.6 k/uL (1.3-7.7); Neutrophils % (A) 87 %; Platelet Count 251 k/uL (150-450); RBC 3.51 m/uL (3.80-5.40); WBC 13.4 k/uL (3.8-10.6)
[2019-10-21 07:21] LABS: Glucose,Whole Blood 137 mg/dL (75-99)
[2019-10-21 07:24] LABS: Calcium 8.9 mg/dL (8.4-10.2); Magnesium 1.5 mg/dL (1.6-2.3); Phosphorus 3.9 mg/dL (2.5-4.5)
[2019-10-21] MEDS: ALBUTEROL NEBULIZED 2.5 MG/3 ML INHALATION SCH ×4 (07:41→20:01)
[2019-10-21] MEDS: PANTOPRAZOLE 40 MG/10 ML VIAL IV SCH (08:20)
[2019-10-21] MEDS: 1: MVI, ADULT NO.4 WITH VIT K 10 ML, THIAMINE 100 MG, FOLIC ACID 1 MG, POTASSIUM CHLORID IV SCH ×12 (09:54→17:53)
[2019-10-21] MEDS: ENOXAPARIN 40 MG/0.4 ML SYRINGE SQ SCH (09:56)
--- NOTE | 2019-10-21 10:58 | P.PN ---
Subjective Progress Note Date: 10/21/19 Principal diagnosis: Morbid obesity Patient complaining of nausea today. She states she had about 20 episodes of emesis last night. This is despite antiemetics. T-max 99. White blood cell count 13.4, hemoglobin 10.7. Yadav catheter was placed for urinary retention. Urine is dc in color. Pain much better today than it was yesterday. Esophagram still pending. Objective - Vital Signs Vital signs: Vital Signs Temp 98 F 10/21/19 07:00 Pulse 89 10/21/19 08:00 Resp 12 10/21/19 08:00 BP 132/72 10/21/19 07:00 Pulse Ox 96 10/21/19 07:41 Intake & Output 10/20/19 10/21/19 10/21/19 18:59 06:59 18:59 Intake Total 1750 2000 Output Total 5 250 Balance 1745 1750 Weight 86.7 kg Intake: IV 1750 Intake, IV Titration 2000 Amount 0.9% NaCl with KCl 20 Meq 1500 /l 1,000 ml @ 150 mls/hr IV .[id number] [facility] Rx#: [id number] Sodium Chloride 0.9% 500 500 ml 500 ml @ 999 mls/hr IV .Q31M [facility] Rx#:[id number] Output: Urine 250 Estimated Blood Loss 5 Other: Voiding Method Indwelling Catheter # Voids 0 - Exam Abdomen: Soft, nondistended, mild incisional tenderness - Labs CBC & Chem 7: 10/21/19 06:25 10/21/19 06:25 Labs: Abnormal Lab Results - Last 24 Hours (Table) 10/20/19 10/20/19 10/21/19 Range/Units 12:40 17:00 06:25 WBC 13.4 H (3.8-10.6) k/uL RBC 3.51 L (3.80-5.40) m/uL Hgb 10.7 L (11.4-16.0) gm/dL Hct 31.5 L (34.0-46.0) % Neutrophils # 11.6 H (1.3-7.7) k/uL Lymphocytes # 0.9 L (1.0-4.8) k/uL Chloride (98-107) mmol/L Carbon Dioxide (22-30) mmol/L BUN (7-17) mg/dL Creatinine (0.52-1.04) mg/dL POC Glucose (mg/dL) 250 H 135 H (75-99) mg/dL Magnesium (1.6-2.3) mg/dL 10/21/19 10/21/19 Range/Units 06:25 07:19 WBC (3.8-10.6) k/uL RBC (3.80-5.40) m/uL Hgb (11.4-16.0) gm/dL Hct (34.0-46.0) % Neutrophils # (1.3-7.7) k/uL Lymphocytes # (1.0-4.8) k/uL Chloride 116 H (98-107) mmol/L Carbon Dioxide 13 L (22-30) mmol/L BUN 69 H (7-17) mg/dL Creatinine 3.33 H (0.52-1.04) mg/dL POC Glucose (mg/dL) 137 H (75-99) mg/dL Magnesium 1.5 L (1.6-2.3) mg/dL Assessment and Plan (1) Morbid obesity Narrative/Plan: Await esophagram this morning. Keep nothing by mouth for now. We'll add Toradol for pain control. We'll add Reglan for ongoing nausea. Current Visit: Yes Status: Acute Code(s): E66.01 - MORBID (SEVERE) OBESITY DUE TO EXCESS CALORIES [facility] Code(s): 378041221
[2019-10-21 11:22] LABS: Glucose,Whole Blood 132 mg/dL (75-99)
[2019-10-21] MEDS: METOCLOPRAMIDE 5 MG/ML 2 ML VIAL IVP SCH ×3 (11:38→23:24)
--- NOTE | 2019-10-21 12:07 | FL ---
EXAMINATION TYPE: FL UGI DATE OF EXAM: 10/21/2019 COMPARISON: NONE HISTORY: Postop bariatric surgery TECHNIQUE: A single contrast UGI study is performed. FINDINGS: Barium contrast bolus was followed under real-time fluoroscopy. Rebeamer envelope folding machine adjuster images were sent to PACS. The gastroesophageal junction is patent however slow esophageal transit is noted with retai asael contrast in the esophagus while the patient was erect throughout the study. No contrast extravasa tion. IMPRESSION: Delayed esophageal transit. Contrast was noted to extend through the gastroesophageal junction howeve r retained oral contrast persisted within the distal esophagus. After the study, the patient was placed on aspiration precautions with elevated head of bed.
[2019-10-21 14:40] LABS: Albumin 3.8 g/dL (3.5-5.0); Calcium 8.7 mg/dL (8.4-10.2); Potassium 5.4 mmol/L (3.5-5.1); Total Bilirubin 0.3 mg/dL (0.2-1.3); Total Protein 6.7 g/dL (6.3-8.2)
--- NOTE | 2019-10-21 15:19 | XR ---
EXAMINATION TYPE: XR chest 1V portable DATE OF EXAM: 10/21/2019 COMPARISON: Chest x-ray 11/15/2017 HISTORY: Congestive heart failure TECHNIQUE: Single frontal view of the chest is obtained. FINDINGS: There is no focal air space opacity, pleural effusion, or pneumothorax seen. The cardiac silhouette size is within normal limits. The osseous structures are intact. IMPRESSION: No acute process.
[2019-10-21 16:14] LABS: Appearance,Urine Turbid (Clear); Bilirubin,Urine Negative (Negative); Blood,Urine Large (Negative); Color,Urine Red; Glucose,Urine (UA) Negative (Negative); Hyaline Casts,Urine 8 /lpf (0-2); Ketones,Urine 1+ (Negative); Leukocyte Esterase,Urine Large (Negative); Nitrite,Urine Negative (Negative); PH, Urine 5.5 (5.0-8.0); Protein,Urine 1+ (Negative); RBC,Urine >182 /hpf (0-5); Specific Gravity,Urine 1.017 (1.001-1.035); Urobilinogen,Urine <2.0 mg/dL (<2.0); WBC,Urine 45 /hpf (0-5)
[2019-10-21 17:22] LABS: Glucose,Whole Blood 104 mg/dL (75-99)
[2019-10-21] MEDS: HEPARIN SODIUM,PORCINE 5,000 UNIT/ML 1 ML VIAL SQ SCH ×2 (17:38→23:24)
[2019-10-21] MEDS ORDERED: ACETAMINOPHEN IV (For NPO) 1,000 MG in EMPTY BAG 1 BAG IVPB PRN (17:45)
[2019-10-21] MEDS: SODIUM CHLORIDE 0.9% 1,000 ML IV SCH (18:28)
[2019-10-21] MEDS: LATANOPROST 0.005% OPHTH DROPS 2.5 ML BTL BOTH EYES SCH (20:30)
--- NOTE | 2019-10-21 21:29 | CONS ---
CONSULTATION REASON FOR CONSULTATION: Advice regarding diabetes and renal failure and other medical issues requested by Dr. Osborne. HISTORY: This 64-year-old woman with a past medical history of diabetes, GERD, hypertension, hyperlipidemia, DJD, being followed by Dr. Jacy Shafer in the outpatient setting was admitted after laparoscopic repair of hiatal hernia. The patient tolerated the procedure well, but however the patient is extremely dry. The patient was given IV fluids and today the creatinine 3.33 and the CO2 is 13, indicating acute renal failure. The preop creatinine was 1.4. The patient also had upper GI series which showed some retention of the dye and aspiration precautions recommended by Radiology. The patient being closely monitored. There is no history of fever, rigors. No history of headache, loss of consciousness or seizures at this time. PAST MEDICAL HISTORY: History of diabetes, GERD, hypertension, hyperlipidemia, history of DJD, history of glaucoma, history of bowel resection, colonoscopy. MEDICATIONS: Home medications are: 1. Xalatan 0.05% 1 drop both eyes q.h.s. 2. Metformin 1000 mg p.o. b.i.d. 3. Zantac 150 mg p.o. b.i.d. 4. Toprol-XL 100 mg q.h.s. 5. Zestril 20 mg q.h.s. 6. Drisdol [id number] p.o. Wednesday. 7. Calcium citrate 600 mg t.i.d. 8. Lipitor 20 mg q.h.s. 9. Multivitamins 1 p.o. daily. 10.Metamucil 10 b.i.d. 11.Carafate 1 g p.o. b.i.d. 12.Mysoline drops 40 mg p.c. q.h.s. p.r.n. 13.Zofran 4 mg q.8 p.r.n. 14.Omeprazole 40 mg p.o. daily. 15.[place] 5 mg q.6h p.r.n. 16.Dulcolax 5 mg daily p.r.n. ALLERGIES: None. FAMILY HISTORY: History of lung cancer in the family. SOCIAL HISTORY: Previous history of smoking, occasional THC. REVIEW OF SYSTEMS: ENT: No diminished vision. No diminished hearing. CARDIOVASCULAR: No angina or palpitations. RESPIRATIONS: No cough. GASTROINTESTINAL: As mentioned earlier. as mentioned earlier. CENTRAL NERVOUS SYSTEM: No numbness or weakness. ALLERGY/IMMUNOLOGY: No asthma or hayfever. MUSCULOSKELETAL as mentioned earlier. HEMATOLOGY/ONCOLOGY: No history of anemia. ENDOCRINE: History of diabetes. No hypothyroidism. CONSTITUTIONAL: As mentioned earlier. DERMATOLOGY: Negative. RHEUMATOLOGY: Negative. PSYCHIATRY: As mentioned earlier. PHYSICAL EXAMINATION: The patient is alert and oriented times three. Pulse is 86, blood pressure 132/72, respiration 12, temperature 98 degrees, pulse ox 97% on room air. HEENT: Conjunctivae normal. Oral mucosa moist. NECK is no jugular venous distention. No carotid bruit. No lymph node enlargement. CARDIOVASCULAR SYSTEM: S1, S2 muffled. No S3, no S4. RESPIRATORY: Breath sounds diminished in the bases. A few scattered rhonchi and crackles. ABDOMEN: Soft, nontender. Status post surgery. No mass palpable. LEGS: No edema. No swelling. NERVOUS SYSTEM: Higher functions as mentioned earlier. Moves all 4 limbs. No focal motor or sensory deficits. Lymphatics: No lymph nodes palpable in the neck, axillae or groin.. SKIN: No ulcer, rashes or bleeding. JOINTS: No active deforming arthropathy. LABS: At this time shows WBC 13.2, hemoglobin 10.7. CO2 is 13. Other labs are noted. Creatinine 3.33. The preop labs are around 1.4 even though the patient had previously elevated creatinine levels. Other labs are reviewed. ASSESSMENT: 1. Status post laparoscopic repair of hiatal hernia and laparoscopic sleeve gastrectomy for morbid obesity and gastroesophageal reflux disease. 2. Acute renal failure possibly secondary to dehydration, acute tubular necrosis. 3. Increased WBC. 4. Anemia, normocytic. 5. Decreased CO2, possible acidosis. 6. Hypomagnesemia. 7. Diabetes mellitus type 2. 8. History of gastroesophageal reflux disease. 9. Hypertension. 10.Hyperlipidemia. 11.History of degenerative joint disease. 12.History of glaucoma. 13.History of hemorrhoids. 14.History of bowel resection. 15.History of nicotine dependence. 16.History of THC. RECOMMENDATIONS AND DISCUSSION: In this 64-year-old woman who presented with multiple medical issues, at this time, I recommend continue the current medications, management and symptomatic treatment. Otherwise, I recommend IV fluids at 100 mL/hour cautiously. Baseline labs including chest x-ray, portable chest x-ray is reviewed. Repeat creatinine was also requested at this time. Otherwise, avoid nephrotoxic medications. I would recommend to stop ketorolac and use Dilaudid on a smaller dose, possibly. Otherwise proton pump inhibitors. See orders for details. I would also recommend transition Lovenox to heparin if this is for prophylactic purposes. Other than that, we will follow the patient closely. Closely follow with surgery and further recommendations to follow. Prognosis guarded. MMODL / IJN: [id number] /
[2019-10-22] MEDS: METOCLOPRAMIDE 5 MG/ML 2 ML VIAL IVP SCH ×4 (04:58→23:58)
[2019-10-22] MEDS: SODIUM CHLORIDE 0.9% 1,000 ML IV SCH ×3 (05:28→23:59)
[2019-10-22] MEDS: 1: MVI, ADULT NO.4 WITH VIT K 10 ML, THIAMINE 100 MG, FOLIC ACID 1 MG, POTASSIUM CHLORID IV SCH ×6 (05:28)
[2019-10-22] MEDS: HYDROcodone/APAP 15 ML SOLUTION PO PRN ×3 (06:25→20:20)
[2019-10-22 07:02] LABS: Basophils % (A) 0 %; Eosinophils % (A) 0 %; HCT 29.9 % (34.0-46.0); HGB 10.1 gm/dL (11.4-16.0); Lymphocytes # (A) 0.9 k/uL (1.0-4.8); Lymphocytes % (A) 11 %; MCH 30.6 pg (25.0-35.0); MCHC 33.7 g/dL (31.0-37.0); MCV 90.7 fL (80.0-100.0); Mean Platelet Volume 7.4; Monocytes # (A) 0.4 k/uL (0-1.0); Monocytes % (A) 5 %; Neutrophils # (A) 7.2 k/uL (1.3-7.7); Neutrophils % (A) 83 %; Platelet Count 217 k/uL (150-450); RDW 13.4 % (11.5-15.5); WBC 8.7 k/uL (3.8-10.6)
[2019-10-22 07:15] LABS: Calcium 8.9 mg/dL (8.4-10.2); Potassium 4.4 mmol/L (3.5-5.1)
[2019-10-22] MEDS: ALBUTEROL NEBULIZED 2.5 MG/3 ML INHALATION SCH ×4 (07:17→18:56)
[2019-10-22] MEDS: HEPARIN SODIUM,PORCINE 5,000 UNIT/ML 1 ML VIAL SQ SCH ×3 (07:26→23:58)
[2019-10-22] MEDS: PANTOPRAZOLE 40 MG/10 ML VIAL IV SCH (07:26)
[2019-10-22] MEDS ORDERED: BISACODYL 5 MG TABLET.DR PO PRN (08:00)
--- NOTE | 2019-10-22 10:28 | P.PN ---
Subjective Progress Note Date: 10/22/19 Principal diagnosis: Morbid obesity Patient feels better today. Some dry heaves last night. Pain is improved. White blood cell count normal. Creatinine 2.1. Tolerating ice chips. Objective - Vital Signs Vital signs: Vital Signs Temp 98.6 F 10/22/19 07:00 Pulse 88 10/22/19 07:25 Resp 18 10/22/19 07:00 BP 145/73 10/22/19 07:00 Pulse Ox 96 10/22/19 07:00 Intake & Output 10/21/19 10/22/19 10/22/19 18:59 06:59 18:59 Intake Total 1050 100 Output Total 550 1200 Balance -550 -150 100 Intake: Intake, IV Titration 1050 100 Amount Sodium Chloride 0.9% 1, 1050 100 000 ml @ 100 mls/hr IV . Q10H [facility] Rx#:[id number] Output: Urine 550 1200 Other: Voiding Method Indwelling Catheter Indwelling Catheter Indwelling Catheter - Exam Abdomen: Soft, nondistended, mild incisional tenderness - Labs CBC & Chem 7: 10/22/19 06:25 10/22/19 06:25 Labs: Abnormal Lab Results - Last 24 Hours (Table) 10/21/19 10/21/19 10/21/19 Range/Units 11:20 14:09 15:55 RBC (3.80-5.40) m/uL Hgb (11.4-16.0) gm/dL Hct (34.0-46.0) % Lymphocytes # (1.0-4.8) k/uL Potassium 5.4 H (3.5-5.1) mmol/L Chloride 119 H (98-107) mmol/L Carbon Dioxide 14 L (22-30) mmol/L BUN 64 H (7-17) mg/dL Creatinine 3.07 H (0.52-1.04) mg/dL Glucose 119 H (74-99) mg/dL POC Glucose (mg/dL) 132 H (75-99) mg/dL AST 47 H (14-36) U/L Urine Appearance Turbid H (Clear) Urine Protein 1+ H (Negative) Urine Ketones 1+ H (Negative) Urine Blood Large H (Negative) Ur Leukocyte Esterase Large H (Negative) Urine RBC >182 H (0-5) /hpf Urine WBC 45 H (0-5) /hpf Urine WBC Clumps Few H (None) /hpf Hyaline Casts 8 H (0-2) /lpf 10/21/19 10/22/19 10/22/19 Range/Units 17:20 06:25 06:25 RBC 3.30 L (3.80-5.40) m/uL Hgb 10.1 L (11.4-16.0) gm/dL Hct 29.9 L (34.0-46.0) % Lymphocytes # 0.9 L (1.0-4.8) k/uL Potassium (3.5-5.1) mmol/L Chloride 120 H (98-107) mmol/L Carbon Dioxide 14 L (22-30) mmol/L BUN 43 H (7-17) mg/dL Creatinine 2.12 H (0.52-1.04) mg/dL Glucose 114 H (74-99) mg/dL POC Glucose (mg/dL) 104 H (75-99) mg/dL AST (14-36) U/L Urine Appearance (Clear) Urine Protein (Negative) Urine Ketones (Negative) Urine Blood (Negative) Ur Leukocyte Esterase (Negative) Urine RBC (0-5) /hpf Urine WBC (0-5) /hpf Urine WBC Clumps (None) /hpf Hyaline Casts (0-2) /lpf Assessment and Plan (1) Morbid obesity Narrative/Plan: Will begin bariatric clear liquids at this time. Ambulate. Keep Yadav catheter in place. Recheck labs tomorrow. Current Visit: Yes Status: Acute Code(s): E66.01 - MORBID (SEVERE) OBESITY DUE TO EXCESS CALORIES SNOMED Code(s): 624544657
--- NOTE | 2019-10-22 15:04 | PN ---
PROGRESS NOTE DATE OF SERVICE: 10/22/2019 This 64-year-old woman who was admitted after laparoscopic repair of the hiatal hernia and laparoscopic sleeve gastrectomy for morbid obesity is improving significantly. No chest pain. No palpitations. No fever. The patient had renal failure, possibly secondary to prerenal factors and acute tubular necrosis which is improving at this time. No chest pain. No palpitations. No fever. PHYSICAL EXAM: Alert and oriented x3. The pulse is 69. Blood pressure 145/73, respiration 18, temperature 98.6, pulse ox 98% on room air. HEENT: Conjunctivae normal. Oral mucosa moist. NECK is no jugular venous distention. No carotid bruit. No lymph node enlargement. CARDIOVASCULAR systems: S1, S2 muffled. RESPIRATION: Breath sounds diminished in the bases. No rhonchi. No crackles. ABDOMEN: Soft. Status post surgery. LEGS: No edema. No swelling. CENTRAL NERVOUS SYSTEM: No focal deficits. LABS: WBC 8.6, hemoglobin 10.1, sodium 140, potassium 4.4, creatinine is 2.12. ASSESSMENT: 1. Status post laparoscopic repair of hiatal hernia and laparoscopic sleeve gastrectomy for morbid obesity and gastroesophageal reflux disease. 2. Acute renal failure possibly secondary to dehydration, acute tubular necrosis. 3. Increased WBC. 4. Anemia, normocytic. 5. Decreased CO2, possible acidosis. 6. Hypomagnesemia. 7. Diabetes type 2. 8. History of gastroesophageal reflux disease. 9. Hypertension. 10.Hyperlipidemia. 11.History of degenerative joint disease. 12.History of glaucoma. 13.History of hemorrhoids. 14.History of bowel resection. 15.History of nicotine dependence. 16.History of THC. RECOMMENDATIONS AND DISCUSSION: Recommend to continue current medications. Continue to monitor, symptomatic treatment. Otherwise, at this time, continue with IV fluids. Monitor creatinine closely. Closely follow with surgery. Repeat labs. Further recommendations to follow. MMODL / IJN: [id number] /
[2019-10-22] MEDS: LATANOPROST 0.005% OPHTH DROPS 2.5 ML BTL BOTH EYES SCH (20:54)
[2019-10-23] MEDS: HYDROcodone/APAP 15 ML SOLUTION PO PRN ×3 (04:02→19:26)
[2019-10-23] MEDS: METOCLOPRAMIDE 5 MG/ML 2 ML VIAL IVP SCH ×4 (05:00→22:24)
[2019-10-23 07:40] LABS: Basophils % (A) 0 %; Eosinophils # (A) 0.1 k/uL (0-0.7); Eosinophils % (A) 1 %; HCT 30.4 % (34.0-46.0); HGB 9.9 gm/dL (11.4-16.0); Lymphocytes # (A) 0.8 k/uL (1.0-4.8); Lymphocytes % (A) 10 %; MCHC 32.7 g/dL (31.0-37.0); MCV 91.6 fL (80.0-100.0); Mean Platelet Volume 8.1; Monocytes # (A) 0.4 k/uL (0-1.0); Monocytes % (A) 5 %; Neutrophils # (A) 6.7 k/uL (1.3-7.7); Neutrophils % (A) 83 %; Platelet Count 222 k/uL (150-450); RBC 3.32 m/uL (3.80-5.40); RDW 13.3 % (11.5-15.5); WBC 8.1 k/uL (3.8-10.6)
[2019-10-23 07:57] LABS: Calcium 8.7 mg/dL (8.4-10.2); Potassium 4.5 mmol/L (3.5-5.1)
[2019-10-23] MEDS: PANTOPRAZOLE 40 MG/10 ML VIAL IV SCH (07:57)
[2019-10-23] MEDS: HEPARIN SODIUM,PORCINE 5,000 UNIT/ML 1 ML VIAL SQ SCH ×3 (07:58→22:24)
[2019-10-23] MEDS: ALBUTEROL NEBULIZED 2.5 MG/3 ML INHALATION SCH ×4 (09:13→21:08)
[2019-10-23] MEDS ORDERED: DEXAMETHASONE SOD PHOSPHATE 10 MG/ML 1 ML VIAL IV STA (09:47)
[2019-10-23] MEDS ORDERED: ACETAMINOPHEN TAB 325 MG TAB PO PRN (12:56)
--- NOTE | 2019-10-23 13:05 | P.PN ---
Subjective Progress Note Date: 10/23/19 This is a 64-year-old status post laparoscopic repair of hiatal hernia, laparoscopic sleeve gastrectomy, with significant clinical improvement. Creatinine down to 1.38. Tolerating bariatric clear liquids with no nausea vomiting or diarrhea. Denies abdominal pain. Reports has not had any coffee and feels like she has a residual headache. Yadav discontinued, not yet voided. Denies chest pain, palpitations or shortness of breath. Denies lightheadedness, dizziness or focal deficits. Afebrile. Objective - Vital Signs Vital signs: Vital Signs Temp 98 F 10/23/19 07:00 Pulse 76 10/23/19 09:22 Resp 17 10/23/19 07:00 BP 162/90 10/23/19 07:00 Pulse Ox 96 10/23/19 09:15 Intake & Output 10/22/19 10/23/19 10/23/19 18:59 06:59 18:59 Intake Total 100 1150 Output Total 1053 700 475 Balance -953 450 -475 Intake: Intake, IV Titration 100 1150 Amount Sodium Chloride 0.9% 1, 100 1150 000 ml @ 100 mls/hr IV . Q10H [facility] Rx#:[id number] Output: Urine 1025 700 475 Uretheral (Yadav) 400 Post Void Residual 28 Other: Voiding Method Indwelling Catheter Indwelling Catheter Indwelling Catheter - Exam PHYSICAL EXAM: VITAL SIGNS: [As above] GENERAL: Sitting up in bed, no acute distress HEENT: Conjunctivae normal. eyes normal. Oral mucosa moist NECK: No JVD. No thyroid enlargement. No LNs CARDIOVASCULAR: S1, S2 regular.. No murmur RESPIRATION: Breath sounds diminished in the bases. No rhonchi or crackles. No bronchial breathing. ABDOMEN: Soft, status post surgery ,No guarding. Bowel sounds heard. LEGS: No edema. no swelling PSYCHIATRY: Alert and oriented X3, mood and affect normal. NERVOUS SYSTEM: Cranial N 2-12 grossly normal. Moves all 4 limbs. No focal deficits. Strength and sensation grossly intact.. Skin: no lesions, no rash Joints: No active swelling. No inflammation. - Labs CBC & Chem 7: 10/23/19 06:45 10/23/19 06:45 Labs: Abnormal Lab Results - Last 24 Hours (Table) 11/25/19 11/25/19 Range/Units 06:45 06:45 RBC 3.32 L (3.80-5.40) m/uL Hgb 9.9 L (11.4-16.0) gm/dL Hct 30.4 L (34.0-46.0) % Lymphocytes # 0.8 L (1.0-4.8) k/uL Chloride 119 H (98-107) mmol/L Carbon Dioxide 17 L (22-30) mmol/L BUN 22 H (7-17) mg/dL Creatinine 1.38 H (0.52-1.04) mg/dL Glucose 135 H (74-99) mg/dL Assessment and Plan Assessment: Status post laparoscopic repair of hiatal hernia and laparoscopic sleeve gastrectomy for morbid obesity and gastroesophageal reflux disease Acute renal failure possibly ATN, secondary to dehydration, improving Anemia, normocytic Diabetes mellitus type 2 Hypertension Hyperlipidemia Daily marijuana use History of nicotine dependence degenerative joint disease Plan: Continue on current medication regime ,monitoring and symptomatic treatment. Yadav recently discontinued, spontaneous play pending. Medically cleared for discharge with repeat labs outpatient -close monitoring of renal function. Tylenol added to med regime. Discharge planning in progress as per surgery. Follow-up with PCP in 1 week. The impression and plan of care has been dictated as directed. : I performed a history and examination of this patient, discussed the same with the dictator. I agree with the dictator's note ,documented as a scribe. Any additional findings or plans will be noted.
[2019-10-23] MEDS: HYDROmorphone 0.5 MG/0.5 ML SYRINGE IVP PRN (13:57)
[2019-10-23 14:06] VITALS: BMI 37.3
--- NOTE | 2019-10-23 14:09 | P.PN ---
Subjective Progress Note Date: 10/23/19 CHIEF COMPLAINT: Morbid obesity, GERD HISTORY OF PRESENT ILLNESS: Patient is status post repair of hiatal hernia and sleeve gastrectomy performed on 10/20/2019. Patient reports some nausea this morning. She is spitting up small amount of clear liquid into a basin during examination. Denies large amounts of emesis. Tolerating some clear liquids. Pain is controlled at this time. Creatinine is improved to 1.38 today. PHYSICAL EXAM: VITAL SIGNS: Reviewed. GENERAL: Well-developed in no acute distress. HEENT: No sclera icterus. Extraocular movements grossly intact. Moist buccal mucosa. Head is atraumatic, normocephalic. ABDOMEN: Soft. Nondistended. Nontender. Laparoscopic surgical sites clean dry and intact. NEUROLOGIC: Alert and oriented. Cranial nerves II through XII grossly intact. ASSESSMENT: 1. Morbid obesity, GERD, s/p repair of hiatal hernia and sleeve gastrectomy 2. Acute kidney injury PLAN: 1. Continue clear liquid diet as tolerated 2. Begin Decadron 4 mg IV every [address] Osborne 3. Discontinue Yadav catheter 4. Continue IV fluids 5. Monitor kidney function. Repeat BMP in a.m. 6. Pain control 7. Incentive spirometer 8. Anticipate discharge home tomorrow Nurse practitioner note has been reviewed by physician. Signing provider agrees with the documented findings, assessment, and plan of care. Objective - Vital Signs Vital signs: Vital Signs Temp 98 F 10/23/19 07:00 Pulse 76 10/23/19 09:22 Resp 17 10/23/19 07:00 BP 162/90 10/23/19 07:00 Pulse Ox 96 10/23/19 09:15 Intake & Output 10/22/19 10/23/19 10/23/19 18:59 06:59 18:59 Intake Total 100 1150 Output Total 1053 700 475 Balance -953 450 -475 Intake: Intake, IV Titration 100 1150 Amount Sodium Chloride 0.9% 1, 100 1150 000 ml @ 100 mls/hr IV . Q10H [facility] Rx#:[id number] Output: Urine 1025 700 475 Uretheral (Yadav) 400 Post Void Residual 28 Other: Voiding Method Indwelling Catheter Indwelling Catheter Indwelling Catheter - Labs CBC & Chem 7: 10/23/19 06:45 10/23/19 06:45 Labs: Abnormal Lab Results - Last 24 Hours (Table) 10/23/19 10/23/19 Range/Units 06:45 06:45 RBC 3.32 L (3.80-5.40) m/uL Hgb 9.9 L (11.4-16.0) gm/dL Hct 30.4 L (34.0-46.0) % Lymphocytes # 0.8 L (1.0-4.8) k/uL Chloride 119 H (98-107) mmol/L Carbon Dioxide 17 L (22-30) mmol/L BUN 22 H (7-17) mg/dL Creatinine 1.38 H (0.52-1.04) mg/dL Glucose 135 H (74-99) mg/dL
[2019-10-23 17:10] LABS: Glucose,Whole Blood 165 mg/dL (75-99)
[2019-10-23] MEDS: SODIUM CHLORIDE 0.9% 1,000 ML IV SCH ×2 (18:46→19:24)
[2019-10-23] MEDS: LATANOPROST 0.005% OPHTH DROPS 2.5 ML BTL BOTH EYES SCH (19:24)
[2019-10-24] MEDS ORDERED: HYDROcodone/APAP 15 ML SOLUTION ONE (03:02)
[2019-10-24] MEDS: SODIUM CHLORIDE 0.9% 1,000 ML IV SCH (05:53)
[2019-10-24] MEDS: METOCLOPRAMIDE 5 MG/ML 2 ML VIAL IVP SCH (05:53)
[2019-10-24 08:05] VITALS: BP 170/99; RESP 17; TEMP 98.1
[2019-10-24] MEDS: HEPARIN SODIUM,PORCINE 5,000 UNIT/ML 1 ML VIAL SQ SCH (08:29)
[2019-10-24] MEDS: PANTOPRAZOLE 40 MG/10 ML VIAL IV SCH (08:29)
[2019-10-24] MEDS: HYDROmorphone 0.5 MG/0.5 ML SYRINGE IVP PRN (08:30)
[2019-10-24] MEDS: ALBUTEROL NEBULIZED 2.5 MG/3 ML INHALATION SCH ×2 (09:17→12:08)
[2019-10-24 09:33] VITALS: PULSE 72
[2019-10-24 10:11] LABS: Potassium 4.2 mmol/L (3.5-5.1)
--- NOTE | 2019-10-24 13:42 | P.DS ---
Providers Date of admission: 10/20/19 08:52 Expected date of discharge: 10/24/19 Attending physician: Jonh Osborne Consults: 10/20/19 12:16 Consult Physician Routine Consulting Provider: Ivan Virk Consult Reason/Comments: Medical management Do you want consulting provider notified?: Yes Primary care physician: [facility] Course: 64-year-old female who underwent repair of hiatal hernia and sleeve gastrectomy performed on 10/20/[address] Osborne. Patient developed postoperative nausea and vomiting. She did develop acute renal failure, which improved with IV hydration. She is tolerating liquid diet. Pain is controlled with oral medications. Vital signs have been stable. She is stable for discharge home today. Please see EMR for further hospital course details. Discharge Diagnosis: 1. Morbid obesity, GERD, s/p repair of hiatal hernia and sleeve gastrectomy 2. Acute kidney injury Nurse practitioner note has been reviewed by physician. Signing provider agrees with the documented findings, assessment, and plan of care. Patient Condition at Discharge: Stable Plan - Discharge Summary Discharge Rx Participant: Yes New Discharge Prescriptions: New Sucralfate [Carafate] 1 gm PO BID #500 ml Bisacodyl [Dulcolax] 5 mg PO DAILY PRN #10 tablet. PRN Reason: Constipation Simethicone 40 mg/0.6 ml Drops [Mylicon Drops] 40 mg PO PCHS PRN #30 ml PRN Reason: gas Hydrocodone/Acetaminophen [[place] 5-325] 1 tab PO Q6HR PRN 3 Days #12 tab PRN Reason: Pain Ondansetron Odt [Zofran Odt] 4 mg PO Q8HR PRN #9 tab PRN Reason: Nausea Omeprazole 40 mg PO DAILY #30 capsule. No Action Atorvastatin [Lipitor] 20 mg PO HS Ergocalciferol [Vitamin D2 (DRISDOL)] 50,000 unit PO WE Metoprolol Succinate [Toprol XL] 100 mg PO HS Lisinopril [Zestril] 20 mg PO HS metFORMIN HCL 1,000 mg PO BID Calcium Citrate 600 mg PO TID Multivit-Minerals/Folic Acid [Centrum Multigummies] 150 mcg PO HS Psyllium Husk [Metamucil] 10 cap PO BID Ranitidine HCl [Zantac] 150 mg PO DAILY Latanoprost Ophth [Xalatan 0.005%] 1 drop BOTH EYES HS Discharge Medication List Atorvastatin [Lipitor] 20 mg PO HS 10/11/17 [History] Ergocalciferol [Vitamin D2 (DRISDOL)] 50,000 unit PO WE 10/11/17 [History] Metoprolol Succinate [Toprol XL] 100 mg PO HS 10/11/17 [History] Lisinopril [Zestril] 20 mg PO HS 04/08/18 [History] metFORMIN HCL 1,000 mg PO BID 04/04/19 [History] Calcium Citrate 600 mg PO TID 08/28/19 [History] Latanoprost Ophth [Xalatan 0.005%] 1 drop BOTH EYES HS 10/13/19 [History] Multivit-Minerals/Folic Acid [Centrum Multigummies] 150 mcg PO HS 10/13/19 [History] Psyllium Husk [Metamucil] 10 cap PO BID 10/13/19 [History] Ranitidine HCl [Zantac] 150 mg PO DAILY 10/13/19 [History] Bisacodyl [Dulcolax] 5 mg PO DAILY PRN #10 tablet. 10/20/19 [Rx] Hydrocodone/Acetaminophen [[place] 5-325] 1 tab PO Q6HR PRN 3 Days #12 tab 10/20/19 [Rx] Omeprazole 40 mg PO DAILY #30 capsule. 10/20/19 [Rx] Ondansetron Odt [Zofran Odt] 4 mg PO Q8HR PRN #9 tab 10/20/19 [Rx] Simethicone 40 mg/0.6 ml Drops [Mylicon Drops] 40 mg PO PCHS PRN #30 ml 10/20/19 [Rx] Sucralfate [Carafate] 1 gm PO BID #500 ml 10/20/19 [Rx] [facility]Ref[place]30[facility]19 1:45 pm Patient Instructions/Handouts: *Surgery [facility] - Scopalamine Patch Instructions, Nutrition after Bariatric Surgery (DC), Laparoscopic Sleeve Gastrectomy (DC) Activity/Diet/Wound Care/Special Instructions: No driving while taking [place] No lifting over 10 pounds You may shower. No soaking or tub baths Very light activity until you are reevaluated at your follow up appointment with your surgeon
--- NOTE | 2019-10-24 16:01 | P.PN ---
Subjective Progress Note Date: 10/24/19 This is a 64-year-old status post laparoscopic repair of hiatal hernia, laparoscopic sleeve gastrectomy, with significant clinical improvement. Creatinine down to 1.38. Tolerating bariatric clear liquids with no nausea vomiting or diarrhea. Denies abdominal pain. Reports has not had any coffee and feels like she has a residual headache. Yadav discontinued, not yet voided. Denies chest pain, palpitations or shortness of breath. Denies lightheadedness, dizziness or focal deficits. Afebrile. 10/24/2019 maintained on Decadron. Significant clinical improvement. Tolerating diet with no nausea vomiting or diarrhea. Positive bowel movement early this morning. Renal function improving IV fluid hydration, currently 1.37. Afebrile. Objective - Vital Signs Vital signs: Vital Signs Temp 98.1 F 10/24/19 07:00 Pulse 68 10/24/19 09:20 Resp 17 10/24/19 07:00 BP 170/99 10/24/19 07:00 Pulse Ox 96 10/24/19 09:20 Intake & Output 10/23/19 10/24/19 10/24/19 18:59 06:59 18:59 Intake Total 200 Output Total 575 450 Balance -575 -250 Weight 86.7 kg Intake: Intake, IV Titration 200 Amount Sodium Chloride 0.9% 1, 200 000 ml @ 100 mls/hr IV . Q10H [facility] Rx#:[id number] Output: Urine 575 450 Uretheral (Yadav) 400 Other: Voiding Method Indwelling Catheter Toilet # Voids 2 - Exam PHYSICAL EXAM: VITAL SIGNS: [As above] GENERAL: Sitting up in bed, no acute distress HEENT: Conjunctivae normal. eyes normal. Oral mucosa moist NECK: No JVD. No thyroid enlargement. No LNs CARDIOVASCULAR: S1, S2 regular.. No murmur RESPIRATION: Breath sounds diminished in the bases. No rhonchi or crackles. ABDOMEN: Soft, status post surgery ,No guarding. Bowel sounds heard. LEGS: No edema. PSYCHIATRY: Alert and oriented X3, mood and affect normal. NERVOUS SYSTEM: Cranial N 2-12 grossly normal. Moves all 4 limbs. No focal deficits. Strength and sensation grossly intact.. Skin: no lesions, no rash - Labs CBC & Chem 7: 10/23/19 06:45 10/24/19 09:19 Labs: Abnormal Lab Results - Last 24 Hours (Table) 10/23/19 Range/Units 17:08 POC Glucose (mg/dL) 165 H (75-99) mg/dL Assessment and Plan Assessment: Status post laparoscopic repair of hiatal hernia and laparoscopic sleeve gastrectomy for morbid obesity and gastroesophageal reflux disease Acute renal failure possibly ATN, secondary to dehydration, improving Anemia, normocytic Diabetes mellitus type 2 Hypertension Hyperlipidemia Daily marijuana use History of nicotine dependence degenerative joint disease Plan: Continue on current medication regime ,monitoring and symptomatic treatment. Medically cleared for discharge with repeat labs outpatient -close monitoring of renal function. Discharge planning in progress as per surgery. Follow-up with PCP in 1 week. The impression and plan of care has been dictated as directed. : I performed a history and examination of this patient, discussed the same with the dictator. I agree with the dictator's note ,documented as a scribe. Any ad ditional findings or plans will be noted.
== END 2019-10-24 13:53 | disposition home or self-care (01) | DRG 620 ==
LOC: 2ORMAIN 08:52 → 4SSUR 12:48
PROVIDERS: ADMIT Surgery; ATTEND Surgery
PROC: 0BQT4ZZ Repair Diaphragm, Percutaneous Endoscopic Approach (ICD-10-PCS; principal; 2019-10-20 09:55)
PROC: 0DB64Z3 Excision of Stomach, Percutaneous Endoscopic Approach, Vertical (ICD-10-PCS; principal; 2019-10-20 09:55)
DX: E66.01 Morbid (severe) obesity due to excess calories (principal); N17.9 Acute kidney failure, unspecified; E11.9 Type 2 diabetes mellitus without complications; D64.9 Anemia, unspecified; E78.5 Hyperlipidemia, unspecified; E83.42 Hypomagnesemia; F12.90 Cannabis use, unspecified, uncomplicated; I10 Essential (primary) hypertension; K21.9 Gastro-esophageal reflux disease without esophagitis; K44.9 Diaphragmatic hernia without obstruction or gangrene; M19.90 Unspecified osteoarthritis, unspecified site; Z68.37 Body mass index [BMI] 37.0-37.9, adult; Z79.84 Long term (current) use of oral hypoglycemic drugs; Z79.899 Other long term (current) drug therapy; Z80.1 Family history of malignant neoplasm of trachea, bronchus and lung; Z80.3 Family history of malignant neoplasm of breast; Z87.891 Personal history of nicotine dependence; Z90.49 Acquired absence of other specified parts of digestive tract
CPT/HCPCS: 71045; 74240; 80048; 80051; 80053; 81001; 82310; 82565; 83735; 84100; 84520; 85025; 88307; 94640; 94760

== ENCOUNTER → 2019-10-30 | Outpatient (CLI) | payer BC ==
[2019-10-30 14:38] VITALS: BP 180/90; PULSE 180; RESP 16; TEMP 98.4; BMI 37.8
--- NOTE | 2019-12-17 12:44 | P.HPBAR ---
Bariatric H&P - History & Physicial H&P Date: 10/30/19 History & Physicial: Visit/CC: post surg Patient initial contact: Initial weight: 97.522 kg Initial weight in pounds: 215.00 Height: 5 ft Initial BMI: 42.0 Last weight: Current weight: 87.997 kg Current weight in pounds: 194.00 Current BMI: 37.8 [place] body weight (based on NIH guidelines): 45.359 kg Excess body weight loss: 18.2% The patient is a 64 year-old F who presents for Bariatric Assessment. Patient presents today for sleeve gastrectomy follow-up. She is doing quite well. She's had some minimal GERD. Past Medical History Past Medical History: Diabetes Mellitus, Eye Disorder, GERD/Reflux, Hyperlipidemia, Hypertension, Musculoskeletal Disorder Additional Past Medical History / Comment(s): bilat glaucoma, diverticuli, hemorrhoids, Back pain, Hiatal hernia. History of Any Multi-Drug Resistant Organisms: None Reported Past Surgical History: Bariatric Surgery, Bowel Resection Additional Past Surgical History / Comment(s): COLONOSCOPY, EGD, Hemorrhoidectomy, gastric sleeve 10/20/19 (Dr. Osborne) Past Anesthesia/Blood Transfusion Reactions: Motion Sickness Past Psychological History: No Psychological Hx Reported Smoking Status: Former smoker Past Alcohol Use History: None Reported Additional Past Alcohol Use History / Comment(s): Smoked 1 year, QUIT SMOKING 1996. Past Drug Use History: Marijuana Additional Drug Use History / Comment(s): USES 12 JOINTS DAILY-INSTRUCTED TO REFRAIN FROM USE AT LEAST 24 HOURS PRIOR TO PROCEDURE - Past Family History Mother Family Medical History: Cancer Additional Family Medical History / Comment(s): lung CA Brother(s) Family Medical History: Cancer Sister(s) Family Medical History: Cancer Additional Family Medical History / Comment(s): breast CA Surgical - Exam Vital Signs Temp Pulse Resp BP 98.4 F 180 H 16 180/90 10/30/19 14:35 10/30/19 14:35 10/30/19 14:35 10/30/19 14:35 - General well developed, well nourished, no distress - Abdomen Abdomen: soft, non tender Bariatric Assessment & Plan Plan: Status post sleeve gastrectomy. Patient will follow-up in 2 weeks. Her weight loss has been excellent. Bariatric Checklist Checklist: Plan: Checklist: EGD: 1. Hiatal hernia: 2. H. Pylori: HgbA1c: Vitamin D: Smoking: Former smoker Primary care physician referral: Bhavya Castellon (pt see's Yessenia [facility]Jovana at [facility]) Psychiatry clearance: Cardiology clearance: Sleep study: Diet journal: VTE risk score: VTE risk level: Rehab needs at discharge:
== END | disposition home or self-care (01) ==
LOC: BARWHC3 13:43
PROVIDERS: ATTEND Surgery
DX: Z48.815 Encounter for surgical aftercare following surgery on the digestive system (principal); Z98.84 Bariatric surgery status; Z87.891 Personal history of nicotine dependence
CPT/HCPCS: 97803; 99211

== ENCOUNTER → 2019-11-13 | Outpatient (CLI) | payer BC ==
[2019-11-13 15:16] VITALS: BP 154/82; PULSE 73; RESP 16; TEMP 98.2; BMI 36.1
--- NOTE | 2019-12-18 15:15 | P.HPBAR ---
Bariatric H&P - History & Physicial H&P Date: 11/13/19 History & Physicial: Visit/CC: post sleeve Patient initial contact: Initial weight: 97.522 kg Initial weight in pounds: 215.00 Height: 5 ft Initial BMI: 42.0 Last weight: Current weight: 83.915 kg Current weight in pounds: 185.00 Current BMI: 36.1 [place] body weight (based on NIH guidelines): 45.359 kg Excess body weight loss: 26.0% The patient is a 64 year-old F who presents for Bariatric Assessment. Patient presents today for sleeve gastrectomy fall. She's had some mild with GERD. She otherwise feels well. Past Medical History Past Medical History: Diabetes Mellitus, Eye Disorder, GERD/Reflux, Hyperlipidemia, Hypertension, Musculoskeletal Disorder Additional Past Medical History / Comment(s): bilat glaucoma, diverticuli, hemorrhoids, Back pain, Hiatal hernia. History of Any Multi-Drug Resistant Organisms: None Reported Past Surgical History: Bariatric Surgery, Bowel Resection Additional Past Surgical History / Comment(s): COLONOSCOPY, EGD, Hemorrhoidectomy, gastric sleeve 10/20/19 (Dr. Osborne) Past Anesthesia/Blood Transfusion Reactions: Motion Sickness Past Psychological History: No Psychological Hx Reported Smoking Status: Former smoker Past Alcohol Use History: None Reported Additional Past Alcohol Use History / Comment(s): Smoked 1 year, QUIT SMOKING 1996. Past Drug Use History: Marijuana Additional Drug Use History / Comment(s): USES 12 JOINTS DAILY-INSTRUCTED TO REFRAIN FROM USE AT LEAST 24 HOURS PRIOR TO PROCEDURE - Past Family History Mother Family Medical History: Cancer Additional Family Medical History / Comment(s): lung CA Brother(s) Family Medical History: Cancer Sister(s) Family Medical History: Cancer Additional Family Medical History / Comment(s): breast CA Surgical - Exam Vital Signs Temp Pulse Resp BP 98.2 F 73 16 154/82 11/13/19 15:13 11/13/19 15:13 11/13/19 15:13 11/13/19 15:13 - General well developed, well nourished - Abdomen Abdomen: soft, non tender Bariatric Assessment & Plan Plan: Status post sleeve gastrectomy. Patient did well. Her GERD is minimal will be observed. Bariatric Checklist Checklist: Plan: Checklist: EGD: 1. Hiatal hernia: 2. H. Pylori: HgbA1c: Vitamin D: Smoking: Former smoker Primary care physician referral: Bhavya Castellon (pt see's Yessenia CarpenterP. at [facility]) Psychiatry clearance: Cardiology clearance: Sleep study: Diet journal: VTE risk score: VTE risk level: Rehab needs at discharge:
== END | disposition home or self-care (01) ==
LOC: BARWHC3 14:22
PROVIDERS: ATTEND Surgery
DX: Z48.815 Encounter for surgical aftercare following surgery on the digestive system (principal); E66.01 Morbid (severe) obesity due to excess calories; K21.9 Gastro-esophageal reflux disease without esophagitis; Z87.891 Personal history of nicotine dependence; Z98.84 Bariatric surgery status
CPT/HCPCS: 97803; 99211

== ENCOUNTER → 2019-12-18 | Outpatient (CLI) | payer BC ==
[2019-12-18 13:46] VITALS: BP 148/93; PULSE 52; RESP 16; TEMP 97.5; BMI 34.5
--- NOTE | 2019-12-18 14:15 | P.HPBAR ---
Bariatric H&P - History & Physicial H&P Date: 12/18/19 History & Physicial: Visit/CC: sleeve f/u Patient initial contact: Initial weight: 97.522 kg Initial weight in pounds: 215.00 Height: 5 ft Initial BMI: 42.0 Last weight: Current weight: 80.286 kg Current weight in pounds: 177.00 Current BMI: 34.5 [place] body weight (based on NIH guidelines): 45.359 kg Excess body weight loss: 33.0% The patient is a 64 year-old F who presents for Bariatric Assessment. Patient resents today for sleeve gastrectomy follow-up. She is having excellent weight loss. She has minimal complete GERD. Past Medical History Past Medical History: Diabetes Mellitus, Eye Disorder, GERD/Reflux, Hyperlipidemia, Hypertension, Musculoskeletal Disorder Additional Past Medical History / Comment(s): bilat glaucoma, diverticuli, hemorrhoids, Back pain, Hiatal hernia. History of Any Multi-Drug Resistant Organisms: None Reported Past Surgical History: Bariatric Surgery, Bowel Resection Additional Past Surgical History / Comment(s): COLONOSCOPY, EGD, Hemorrhoidectomy, gastric sleeve 10/20/19 (Dr. Osborne) Past Anesthesia/Blood Transfusion Reactions: Motion Sickness Past Psychological History: No Psychological Hx Reported Smoking Status: Former smoker Past Alcohol Use History: None Reported Additional Past Alcohol Use History / Comment(s): Smoked 1 year, QUIT SMOKING 1996. Past Drug Use History: Marijuana Additional Drug Use History / Comment(s): USES 12 JOINTS DAILY-INSTRUCTED TO REFRAIN FROM USE AT LEAST 24 HOURS PRIOR TO PROCEDURE - Past Family History Mother Family Medical History: Cancer Additional Family Medical History / Comment(s): lung CA Brother(s) Family Medical History: Cancer Sister(s) Family Medical History: Cancer Additional Family Medical History / Comment(s): breast CA Surgical - Exam Vital Signs Temp Pulse Resp BP 97.5 F L 52 L 16 148/93 12/18/19 13:43 12/18/19 13:43 12/18/19 13:43 12/18/19 13:43 - General well developed, well nourished, no distress - Eyes PERRL - ENT normal pinna, normal nares - Neck no masses - Respiratory normal expansion - Cardiovascular Rhythm: regular - Abdomen Abdomen: soft, non tender Bariatric Assessment & Plan Plan: Status post sleeve gastrectomy. Patient is doing excellent. Her GERD is minimal old observed. Bariatric Checklist Checklist: Plan: Checklist: EGD: 1. Hiatal hernia: 2. H. Pylori: HgbA1c: Vitamin D: Smoking: Former smoker Primary care physician referral: Bhavya Castellon (pt see's Estella Shafer N.P. at [facility]) Psychiatry clearance: Cardiology clearance: Sleep study: Diet journal: VTE risk score: VTE risk level: Rehab needs at discharge:
== END | disposition home or self-care (01) ==
LOC: BARWHC3 13:30
PROVIDERS: ATTEND Surgery
DX: Z48.815 Encounter for surgical aftercare following surgery on the digestive system (principal); K21.9 Gastro-esophageal reflux disease without esophagitis; Z87.891 Personal history of nicotine dependence; Z98.84 Bariatric surgery status
CPT/HCPCS: 99211

== ENCOUNTER → 2020-04-08 | Outpatient (CLI) | payer BC ==
[2020-04-08 13:18] VITALS: BP 154/88; PULSE 64; TEMP 97.9; BMI 32.0
--- NOTE | 2020-04-08 15:34 | P.HPBAR ---
Bariatric H&P - History & Physicial H&P Date: 04/08/20 History & Physicial: Visit/CC: [facility] sleeve follow up Patient initial contact: Initial weight: 97.522 kg Initial weight in pounds: 215.00 Height: 5 ft Initial BMI: 42.0 Last weight: Current weight: 74.389 kg Current weight in pounds: 164.00 Current BMI: 32.0 [place] body weight (based on NIH guidelines): 45.359 kg Excess body weight loss: 44.3% The patient is a 65 year-old F who presents for Bariatric Assessment. Patient presents today for sleeve gastrectomy follow-up. She is doing quite well. She is an excellent weight loss. She's had minimal GERD. Past Medical History Past Medical History: Diabetes Mellitus, Eye Disorder, GERD/Reflux, Hyperlipidemia, Hypertension, Musculoskeletal Disorder Additional Past Medical History / Comment(s): bilat glaucoma, diverticuli, hemorrhoids, Back pain, Hiatal hernia. History of Any Multi-Drug Resistant Organisms: None Reported Past Surgical History: Bariatric Surgery, Bowel Resection Additional Past Surgical History / Comment(s): COLONOSCOPY, EGD, Hemorrhoidectomy, gastric sleeve 10/20/19 (Dr. Osborne) Past Anesthesia/Blood Transfusion Reactions: Motion Sickness Past Psychological History: No Psychological Hx Reported Smoking Status: Former smoker Past Alcohol Use History: None Reported Additional Past Alcohol Use History / Comment(s): Smoked 1 year, QUIT SMOKING 1996. Past Drug Use History: Marijuana Additional Drug Use History / Comment(s): USES 12 JOINTS DAILY-INSTRUCTED TO REFRAIN FROM USE AT LEAST 24 HOURS PRIOR TO PROCEDURE - Past Family History Mother Family Medical History: Cancer Additional Family Medical History / Comment(s): lung CA Brother(s) Family Medical History: Cancer Sister(s) Family Medical History: Cancer Additional Family Medical History / Comment(s): breast CA Surgical - Exam Vital Signs Temp Pulse BP 97.9 F 64 154/88 04/08/20 13:15 04/08/20 13:15 04/08/20 13:15 - General well developed, well nourished, no distress - Eyes PERRL - ENT normal pinna - Neck no masses - Respiratory normal expansion - Cardiovascular Rhythm: regular - Abdomen Abdomen: soft, non tender Bariatric Assessment & Plan Plan: Status post a gastric. Patient appears minimal will be observed. She'll follow-up in 8 weeks. Bariatric Checklist Checklist: Plan: Checklist: EGD: 1. Hiatal hernia: 2. H. Pylori: HgbA1c: Vitamin D: Smoking: Former smoker Primary care physician referral: Bhavya Castellon (pt see's Estella Shafer N.P. at [facility]) Psychiatry clearance: Cardiology clearance: Sleep study: Diet journal: VTE risk score: VTE risk level: Rehab needs at discharge:
== END | disposition home or self-care (01) ==
LOC: BARWHC3 12:46
PROVIDERS: ATTEND Surgery
DX: Z48.815 Encounter for surgical aftercare following surgery on the digestive system (principal); Z87.891 Personal history of nicotine dependence; Z98.84 Bariatric surgery status
CPT/HCPCS: 99211

== ENCOUNTER → 2020-04-17 | Outpatient (CLI) | payer BC ==
[2020-04-17 12:23] LABS: HCT 35.8 % (34.0-46.0); HGB 11.9 gm/dL (11.4-16.0); MCH 29.1 pg (25.0-35.0); MCHC 33.2 g/dL (31.0-37.0); MCV 87.7 fL (80.0-100.0); Mean Platelet Volume 8.9; Platelet Count 230 k/uL (150-450); RBC 4.08 m/uL (3.80-5.40); WBC 7.6 k/uL (3.8-10.6)
[2020-04-17 18:55] LABS: Folate, Serum >24.0 ng/mL
[2020-04-17 20:02] LABS: ALT 29 U/L (8-44); AST 34 U/L (13-35); African American GFR (CKD) 34.1 (60.0-200.0); Albumin/Globulin Ratio 1.79 (1.60-3.17); Alkaline Phosphatase 56 U/L (41-126); BUN/Creat Ratio 17.78 Ratio (12.00-20.00); Calcium 9.7 mg/dL (8.7-10.3); Carbon Dioxide 25.7 mmol/L (21.6-31.8); Chloride 111 mmol/L (96-109); Globulin 2.4 g/dL (1.6-3.3); Glucose 96 mg/dL (70-110); Non-African American GFR(CKD) 29.4 (60.0-200.0); Potassium 4.3 mmol/L (3.5-5.5); Sodium 143 mmol/L (135-145); Total Bilirubin 0.4 mg/dL (0.3-1.2); Total Protein 6.7 g/dL (6.2-8.2)
== END | disposition home or self-care (01) ==
LOC: LABWHC1 11:12
PROVIDERS: ATTEND Surgery
DX: E44.0 Moderate protein-calorie malnutrition (principal); E55.9 Vitamin D deficiency, unspecified; E66.01 Morbid (severe) obesity due to excess calories
CPT/HCPCS: 36415; 80053; 82306; 82607; 82746; 84425; 84443; 85027

== ENCOUNTER → 2020-04-29 | Outpatient (CLI) | payer BC | END | disposition home or self-care (01) | LOC: LABWHC1 09:48 | PROVIDERS: ATTEND Ophthalmology | DX: G70.01 Myasthenia gravis with (acute) exacerbation (principal) | CPT/HCPCS: 36415; 83519 ==

== ENCOUNTER → 2020-05-23 | Outpatient (CLI) | payer BC ==
--- NOTE | 2020-05-23 11:05 | MR ---
EXAMINATION TYPE: MR angio head wo con DATE OF EXAM: 05/23/2020 COMPARISON: NONE HISTORY: Third Right Nerve Palsy, Drooping eylids TECHNIQUE: Utilizing 3-D [id number] intracranial MRA of the [place] of [place] was performed. FINDINGS: The vertebrobasilar and carotid systems are patent. There is no sizable aneurysm or vascular malform ation. Vertebral arteries are symmetric in size. IMPRESSION: 1. No evidence of vascular malformation or sizable aneurysm.
--- NOTE | 2020-05-23 11:48 | MR ---
EXAMINATION TYPE: MR brain wo/w con DATE OF EXAM: 05/23/2020 COMPARISON: None HISTORY: Third Right Nerve Palsy, Drooping eylids TECHNIQUE: Multiplanar, multisequence images of the brain and brainstem is performed without and with IV contras t, utilizing 7 mL intravenous Gadavist . FINDINGS: Diffusion weighted images demonstrate no evidence of a recent infarct or other diffusion ab normality. There are small focal areas of abnormal signal scattered throughout the white matter which are nonspe cific. Findings most likely in the basis of remote microvascular ischemia. No enhancing lesions. There is a scattered tiny subcentimeter areas of abnormal signal involving the matthew. Changes of chronic sinusitis noted. Partially empty sella turcica. Cerebellar tonsils low-lying at th e level of the foramen magnum. Midline structures demonstrate normal morphology. Post contrast images demonstrate no abnormal enha ncement. The dural venous sinuses appear patent. IMPRESSION: 1. Mild scattered nonspecific white matter changes. Remote microvascular ischemia most likely etiolog y correlate clinically. 2. Partially into sella turcica. Cerebellar tonsils low-lying at the level of foramen magnum. This ca n occasionally be seen with increased intracranial pressure. Correlate clinically. 3. Nonspecific areas of abnormal signal involving the matthew could been the basis of remote ischemia or demyelinating process not entirely excluded. No abnormal enhancement.
== END | disposition home or self-care (01) ==
LOC: RADMRIMAIN 09:47
PROVIDERS: ATTEND Ophthalmology
DX: R90.89 Other abnormal findings on diagnostic imaging of central nervous system (principal); I67.82 Cerebral ischemia; G93.2 Benign intracranial hypertension
CPT/HCPCS: 70544; 70553; A9585

== ENCOUNTER → 2020-06-10 | Outpatient (CLI) | payer BC ==
--- NOTE | 2020-06-10 14:13 | P.HPBAR ---
Bariatric H&P - History & Physicial H&P Date: 06/10/20 History & Physicial: Visit/CC: Patient initial contact: Initial weight: 97.522 kg Initial weight in pounds: Height: Initial BMI: Last weight: 164 Current weight: 151 Current weight in pounds: Current BMI: [place] body weight (based on NIH guidelines): Excess body weight loss: The patient is a 65 year-old F who presents for Bariatric Assessment. Patient presents today for gastric sleeve follow-up. She's had some minimal GERD. Past Medical History Past Medical History: Diabetes Mellitus, Eye Disorder, GERD/Reflux, Hyperlipidemia, Hypertension, Musculoskeletal Disorder Additional Past Medical History / Comment(s): bilat glaucoma, diverticuli, hemorrhoids, Back pain, Hiatal hernia. History of Any Multi-Drug Resistant Organisms: None Reported Past Surgical History: Bariatric Surgery, Bowel Resection Additional Past Surgical History / Comment(s): COLONOSCOPY, EGD, Hemorrhoi dectomy, gastric sleeve 10/20/19 (Dr. Osborne) Past Anesthesia/Blood Transfusion Reactions: Motion Sickness Past Psychological History: No Psychological Hx Reported Smoking Status: Former smoker Past Alcohol Use History: None Reported Additional Past Alcohol Use History / Comment(s): Smoked 1 year, QUIT SMOKING 1996. Past Drug Use History: Marijuana Additional Drug Use History / Comment(s): USES 12 JOINTS DAILY-INSTRUCTED TO REFRAIN FROM USE AT LEAST 24 HOURS PRIOR TO PROCEDURE - Past Family History Mother Family Medical History: Cancer Additional Family Medical History / Comment(s): lung CA Brother(s) Family Medical History: Cancer Sister(s) Family Medical History: Cancer Additional Family Medical History / Comment(s): breast CA Surgical - Exam - General well developed, well nourished, no distress - Eyes PERRL - ENT normal pinna - Neck no masses - Respiratory normal expansion - Cardiovascular Rhythm: regular - Abdomen Abdomen: soft, non tender Bariatric Assessment & Plan Plan: Status post sleeve gastrectomy. Patient is minimal OV observed. She'll follow- up in 4 weeks Bariatric Checklist Checklist: Plan: Checklist: EGD: 1. Hiatal hernia: 2. H. Pylori: HgbA1c: Vitamin D: Smoking: Former smoker Primary care physician referral: Bhavya Castellon (pt see's Estella Shafer N.P. at [facility]) Psychiatry clearance: Cardiology clearance: Sleep study: Diet journal: VTE risk score: VTE risk level: Rehab needs at discharge:
[2020-06-13 09:42] VITALS: BP 134/83; PULSE 85; TEMP 98.2; BMI 29.2
== END | disposition home or self-care (01) ==
LOC: BARWHC3 12:56
PROVIDERS: ATTEND Surgery
DX: E66.01 Morbid (severe) obesity due to excess calories (principal); K21.9 Gastro-esophageal reflux disease without esophagitis; Z98.84 Bariatric surgery status; Z87.891 Personal history of nicotine dependence
CPT/HCPCS: 99211

== ENCOUNTER → 2020-08-12 | Outpatient (CLI) | payer BC ==
[2020-08-12 13:41] VITALS: BP 144/80; PULSE 78; TEMP 98; BMI 28.1
--- NOTE | 2020-08-12 14:04 | P.HPBAR ---
Bariatric H&P - History & Physicial H&P Date: 08/12/20 History & Physicial: Visit/CC: nine month follow up Patient initial contact: Initial weight: 97.522 kg Initial weight in pounds: 215.00 Height: 5 ft Initial BMI: 42.0 Last weight: Current weight: 65.317 kg Current weight in pounds: 144.00 Current BMI: 28.1 [place] body weight (based on NIH guidelines): 45.359 kg Excess body weight loss: 61.7% The patient is a 65 year-old F who presents for Bariatric Assessment. Patient presents today for sleeve gastrectomy fall. She's had some luck with GERD. She has lost 8 pounds her last visit. Past Medical History Past Medical History: Diabetes Mellitus, Eye Disorder, GERD/Reflux, Hyperlipidemia, Hypertension, Musculoskeletal Disorder Additional Past Medical History / Comment(s): bilat glaucoma, diverticuli, hemorrhoids, Back pain, Hiatal hernia. History of Any Multi-Drug Resistant Organisms: None Reported Past Surgical History: Bariatric Surgery, Bowel Resection Additional Past Surgical History / Comment(s): COLONOSCOPY, EGD, Hemorrhoidectomy, gastric sleeve 10/20/19 (Dr. Osborne) Past Anesthesia/Blood Transfusion Reactions: Motion Sickness Past Psychological History: No Psychological Hx Reported Smoking Status: Current every day smoker Past Alcohol Use History: None Reported Additional Past Alcohol Use History / Comment(s): Smoked 1 year, QUIT SMOKING 1996. Past Drug Use History: Marijuana Additional Drug Use History / Comment(s): USES 12 JOINTS DAILY-INSTRUCTED TO REFRAIN FROM USE AT LEAST 24 HOURS PRIOR TO PROCEDURE - Past Family History Mother Family Medical History: Cancer Additional Family Medical History / Comment(s): lung CA Brother(s) Family Medical History: Cancer Sister(s) Family Medical History: Cancer Additional Family Medical History / Comment(s): breast CA Surgical - Exam Vital Signs Temp Pulse BP 98 F 78 144/80 08/12/20 13:39 08/12/20 13:39 08/12/20 13:39 - General well developed, well nourished, no distress - Eyes PERRL - ENT normal pinna - Neck no masses - Respiratory normal expansion - Cardiovascular Rhythm: regular - Abdomen Abdomen: soft, non tender Bariatric Assessment & Plan Plan: Status post sleeve gastrectomy. Patient had excellent weight loss. Her GERD is minimal be observed. She'll follow-up in 4 weeks. Bariatric Checklist Checklist: Plan: Checklist: EGD: 1. Hiatal hernia: 2. H. Pylori: HgbA1c: Vitamin D: Smoking: Former smoker Primary care physician referral: Bhavya Castellon (pt see's Estella Shafer N.P. at [facility]) Psychiatry clearance: Cardiology clearance: Sleep study: Diet journal: VTE risk score: VTE risk level: Rehab needs at discharge:
== END | disposition home or self-care (01) ==
LOC: BARWHC3 13:04
PROVIDERS: ATTEND Surgery
DX: Z48.815 Encounter for surgical aftercare following surgery on the digestive system (principal); Z87.891 Personal history of nicotine dependence; Z98.84 Bariatric surgery status
CPT/HCPCS: 99211

== ENCOUNTER → 2020-10-14 | Outpatient (CLI) | payer BC ==
--- NOTE | 2020-10-14 14:12 | P.HPBAR ---
Bariatric H&P - History & Physicial H&P Date: 10/14/20 History & Physicial: Visit/CC: Patient initial contact: Initial weight: 97.522 kg Initial weight in pounds: Height: Initial BMI: Last weight: 147 Current weight: 143 Current weight in pounds: Current BMI: [place] body weight (based on NIH guidelines): Excess body weight loss: The patient is a 65 year-old F who presents for Bariatric Assessment. Patient presents today for sleeve gastrectomy follow-up. She's had some mild GERD. Overall she feels well. Past Medical History Past Medical History: Diabetes Mellitus, Eye Disorder, GERD/Reflux, Hyperlipidemia, Hypertension, Musculoskeletal Disorder Additional Past Medical History / Comment(s): bilat glaucoma, diverticuli, hemorrhoids, Back pain, Hiatal hernia. History of Any Multi-Drug Resistant Organisms: None Reported Past Surgical History: Bariatric Surgery, Bowel Resection Additional Past Surgical History / Comment(s): COLONOSCOPY, EGD, Hemorrhoidectomy, gastric sleeve 10/20/19 (Dr. Osborne) Past Anesthesia/Blood Transfusion Reactions: Motion Sickness Past Psychological History: No Psychological Hx Reported Smoking Status: Current every day smoker Past Alcohol Use History: None Reported Additional Past Alcohol Use History / Comment(s): Smoked 1 year, QUIT SMOKING 1996. Past Drug Use History: Marijuana Additional Drug Use History / Comment(s): USES 12 JOINTS DAILY-INSTRUCTED TO REFRAIN FROM USE AT LEAST 24 HOURS PRIOR TO PROCEDURE - Past Family History Mother Family Medical History: Cancer Additional Family Medical History / Comment(s): lung CA Brother(s) Family Medical History: Cancer Sister(s) Family Medical History: Cancer Additional Family Medical History / Comment(s): breast CA Surgical - Exam - General well developed, well nourished, no distress - Eyes PERRL - ENT normal pinna - Neck no masses - Respiratory normal expansion - Cardiovascular Rhythm: regular - Abdomen Abdomen: soft, non tender Bariatric Assessment & Plan Plan: Status post sleeve gastrectomy. Patient's GERD is minimal be observed. She'll follow-up in 4 weeks Bariatric Checklist Checklist: Plan: Checklist: EGD: 1. Hiatal hernia: 2. H. Pylori: HgbA1c: Vitamin D: Smoking: Former smoker Primary care physician referral: Bhavya Castellon (pt see's Jayne Carpenter.PJovana at [facility]) Psychiatry clearance: Cardiology clearance: Sleep study: Diet journal: VTE risk score: VTE risk level: Rehab needs at discharge:
[2020-10-14 14:32] VITALS: BP 167/93; PULSE 64; RESP 18; TEMP 98.6; BMI 27.9
== END | disposition home or self-care (01) ==
LOC: BARWHC3 13:22
PROVIDERS: ATTEND Surgery
DX: Z48.815 Encounter for surgical aftercare following surgery on the digestive system (principal); Z98.84 Bariatric surgery status; K21.9 Gastro-esophageal reflux disease without esophagitis
CPT/HCPCS: 99211

== ENCOUNTER → 2020-12-09 | Outpatient (CLI) | payer BC ==
[2020-12-09 13:59] VITALS: BP 148/82; PULSE 71; RESP 18; TEMP 98.4
--- NOTE | 2020-12-10 11:14 | P.HPBAR ---
Bariatric H&P - History & Physicial H&P Date: 12/09/20 History & Physicial: Visit/CC: follow up Patient initial contact: Initial weight: 97.522 kg Initial weight in pounds: 215.00 Height: 5 ft Initial BMI: Last weight: Current weight: 65.771 kg Current weight in pounds: Current BMI: [place] body weight (based on NIH guidelines): Excess body weight loss: The patient is a 65 year-old F who presents for Bariatric Assessment. Patient presents today for sleeve gastrectomy follow-up. She's had some mild GERD. Past Medical History Past Medical History: Diabetes Mellitus, Eye Disorder, GERD/Reflux, Hyperlipidemia, Hypertension, Musculoskeletal Disorder Additional Past Medical History / Comment(s): bilat glaucoma, diverticuli, hemorrhoids, Back pain, Hiatal hernia. History of Any Multi-Drug Resistant Organisms: None Reported Past Surgical History: Bariatric Surgery, Bowel Resection Additional Past Surgical History / Comment(s): COLONOSCOPY, EGD, Hemorrhoidectomy, gastric sleeve 10/20/19 (Dr. Osborne) Past Anesthesia/Blood Transfusion Reactions: Motion Sickness Past Psychological History: No Psychological Hx Reported Smoking Status: Current every day smoker Past Alcohol Use History: None Reported Additional Past Alcohol Use History / Comment(s): Smoked 1 year, QUIT SMOKING 1996. Past Drug Use History: Marijuana Additional Drug Use History / Comment(s): USES 12 JOINTS DAILY-INSTRUCTED TO REFRAIN FROM USE AT LEAST 24 HOURS PRIOR TO PROCEDURE - Past Family History Mother Family Medical History: Cancer Additional Family Medical History / Comment(s): lung CA Brother(s) Family Medical History: Cancer Sister(s) Family Medical History: Cancer Additional Family Medical History / Comment(s): breast CA Surgical - Exam Vital Signs Temp Pulse Resp BP 98.4 F 71 18 148/82 12/09/20 13:52 12/09/20 13:52 12/09/20 13:52 12/09/20 13:52 - General well developed, well nourished, no distress - Eyes PERRL - ENT normal pinna - Neck no masses - Respiratory normal expansion - Cardiovascular Rhythm: regular - Abdomen Abdomen: soft, non tender Bariatric Assessment & Plan Plan: Status post sleeve gastrectomy. Patient's creatinine is minimal old observe. She'll follow-up in 4 weeks. Bariatric Checklist Checklist: Plan: Checklist: EGD: 1. Hiatal hernia: 2. H. Pylori: HgbA1c: Vitamin D: Smoking: Former smoker Primary care physician referral: Bhavya Castellon (pt see's Estella Shafer N.P. at [facility]) Psychiatry clearance: Cardiology clearance: Sleep study: Diet journal: VTE risk score: VTE risk level: Rehab needs at discharge:
== END | disposition home or self-care (01) ==
LOC: BARWHC3 13:25
PROVIDERS: ATTEND Surgery
DX: Z48.815 Encounter for surgical aftercare following surgery on the digestive system (principal); K43.2 Incisional hernia without obstruction or gangrene; F17.200 Nicotine dependence, unspecified, uncomplicated; Z98.84 Bariatric surgery status
CPT/HCPCS: 99211

== ENCOUNTER → 2021-02-03 | Outpatient (CLI) | payer BC ==
--- NOTE | 2021-02-03 15:35 | P.HPBAR ---
Bariatric H&P - History & Physicial H&P Date: 02/03/21 History & Physicial: Visit/CC: follow up Patient initial contact: Initial weight: 97.522 kg Initial weight in pounds: 215.00 Height: 5 ft Initial BMI: 42.0 Last weight: Current weight: 65.771 kg Current weight in pounds: 145.00 Current BMI: 28.3 [place] body weight (based on NIH guidelines): 45.359 kg Excess body weight loss: 60.8% The patient is a 65 year-old F who presents for Bariatric Assessment. Patient presents today for follow-up. She has had some complaints of GERD. She has lost 5 pounds last visit. Past Medical History Past Medical History: Diabetes Mellitus, Eye Disorder, GERD/Reflux, Hyperlipidemia, Hypertension, Musculoskeletal Disorder Additional Past Medical History / Comment(s): bilat glaucoma, diverticuli, hemorrhoids, Back pain, Hiatal hernia. History of Any Multi-Drug Resistant Organisms: None Reported Past Surgical History: Bariatric Surgery, Bowel Resection Additional Past Surgical History / Comment(s): COLONOSCOPY, EGD, Hemorrhoidectomy, gastric sleeve 10/20/19 (Dr. Osborne) Past Anesthesia/Blood Transfusion Reactions: Motion Sickness Past Psychological History: No Psychological Hx Reported Smoking Status: Former smoker Past Alcohol Use History: None Reported Additional Past Alcohol Use History / Comment(s): Smoked 1 year, QUIT SMOKING 1996. Past Drug Use History: Marijuana Additional Drug Use History / Comment(s): USES 12 JOINTS DAILY-INSTRUCTED TO REFRAIN FROM USE AT LEAST 24 HOURS PRIOR TO PROCEDURE - Past Family History Mother Family Medical History: Cancer Additional Family Medical History / Comment(s): lung CA Brother(s) Family Medical History: Cancer Sister(s) Family Medical History: Cancer Additional Family Medical History / Comment(s): breast CA Surgical - Exam Vital Signs Temp Pulse Resp BP 98.3 F 72 18 155/89 02/03/21 14:09 02/03/21 14:09 02/03/21 14:09 02/03/21 14:09 - General well developed, well nourished, no distress - Eyes PERRL - ENT normal pinna - Neck no masses - Respiratory normal expansion - Cardiovascular Rhythm: regular - Abdomen Abdomen: soft, non tender Bariatric Assessment & Plan Plan: Status post sleeve gastrectomy. Patient will her GERD is minimal. She'll follow-up in 4 weeks Bariatric Checklist Checklist: Plan: Checklist: EGD: 1. Hiatal hernia: 2. H. Pylori: HgbA1c: Vitamin D: Smoking: Former smoker Primary care physician referral: Bhavya Castellon (pt see's Yessenia CarpenterPJovana at [facility]) Psychiatry clearance: Cardiology clearance: Sleep study: Diet journal: VTE risk score: VTE risk level: Rehab needs at discharge:
== END | disposition home or self-care (01) ==
CPT/HCPCS: 99211

== ENCOUNTER → 2021-02-04 | Outpatient (CLI) | payer BC ==
[2021-02-04 15:27] LABS: HCT 38.2 % (37.2-46.3); HGB 12.5 g/dL (12.0-15.0); MCH 29.5 pg (27.0-32.0); MCHC 32.7 g/dL (32.0-37.0); MCV 90.1 fL (80.0-97.0); Mean Platelet Volume 11.7 fL (9.5-12.2); Platelet Count 301 X 10*3/uL (140-440); RBC 4.24 X 10*6/uL (4.10-5.20); RDW 13.1 % (11.5-14.5); WBC 8.17 X 10*3/uL (4.50-10.00)
[2021-02-04 18:07] LABS: ALT 23 U/L (8-44); AST 29 U/L (13-35); African American GFR (CKD) 46.2 (60.0-200.0); Albumin/Globulin Ratio 2.04 (1.60-3.17); Alkaline Phosphatase 68 U/L (41-126); BUN/Creat Ratio 16.43 Ratio (12.00-20.00); Calcium 9.6 mg/dL (8.7-10.3); Carbon Dioxide 24.3 mmol/L (21.6-31.8); Chloride 107 mmol/L (96-109); Globulin 2.4 g/dL (1.6-3.3); Glucose 98 mg/dL (70-110); Non-African American GFR(CKD) 39.9 (60.0-200.0); Potassium 4.4 mmol/L (3.5-5.5); Sodium 138 mmol/L (135-145); Total Bilirubin 0.3 mg/dL (0.2-1.2); Total Protein 7.3 g/dL (6.2-8.2)
[2021-02-04 18:21] LABS: Folate, Serum >24.0 ng/mL
== END | disposition home or self-care (01) ==
LOC: LABWHC1 09:22
PROVIDERS: ATTEND Surgery
DX: E44.0 Moderate protein-calorie malnutrition (principal); E55.9 Vitamin D deficiency, unspecified; E66.01 Morbid (severe) obesity due to excess calories
CPT/HCPCS: 36415; 80053; 82306; 82607; 82746; 84425; 84443; 85027

== ENCOUNTER 2021-02-19 09:00 | Observation (INO) | payer BC ==
[2021-02-18 09:55] VITALS: BMI 28.3
[~2021-02-19 09:00] MED LIST changes: -DEXAMETHASONE SOD PHOSPHATE 10 MG/ML 1 ML VIAL IV ONE; +DEXAMETHASONE SOD PHOSPHATE 4 MG/ML 1 ML VIAL IV ONE; -ENOXAPARIN 40 MG/0.4 ML SYRINGE SQ ONE; -HYDROmorphone 0.5 MG/0.5 ML SYRINGE IVP PRN; -LIDOCAINE 1% 20 ML VIAL (10MG/ML) FOR IV START INTRADERMA PRN; +MIDAZOLAM 2 MG/2 ML VIAL IV PRN; -fentaNYL (PF) 50 MCG/ML 2 ML AMP IV PRN
[2021-02-19] MEDS: LACTATED RINGERS 1,000 ML IV SCH (10:00)
[2021-02-19 10:12] LABS: Glucose,Whole Blood 110 mg/dL (75-99)
[2021-02-19] MEDS ORDERED: LIDOCAINE 1% INJ 10MG/ML (20 ML MDV) ONE ×2 (10:23→11:48)
[2021-02-19] MEDS ORDERED: HEPARIN SODIUM,PORCINE 5,000 UNIT/ML 1 ML VIAL ONE (10:23)
--- NOTE | 2021-02-19 11:06 | P.ANPRN ---
Procedure Note - Anesthesia - Nerve Block Performed Bilateral Erector Spinae Single Time Out Performed: Yes Date of Procedure: 02/19/21 Procedure Start Time: 10:50 Procedure Stop Time: 10:59 Location of Patient: PreOp Indication: Acute Post-Operative Pain, Requested by Surgeon Sedation Type: Sedate with meaningful contact maintained Preparation: Sterile Prep Position: Prone Needle Types: Pajunk Needle Gauge: 21 Ultrasound used to visualize needle placement: Yes Ultrasound used to observe medication spread: Yes Blood Aspirated: No Pain Paresthesia on Injection Noted: No Resistance on Injection: Normal Image Stored and Saved: Yes Events: Uneventful and Well Tolerated (ropi .5% 15cc plus xylo 1% 10cc at t12)
--- NOTE | 2021-02-19 11:37 | P.GSHP ---
History of Present Illness H&P Date: 02/19/21 Chief Complaint: Incisional hernia incarcerated. This is a 65-year-old female who presents today for repair of incarcerated incisional hernia. Patient has a large 10 cm hernia located in the supraumbilical position. Past Medical History Past Medical History: Diabetes Mellitus, Eye Disorder, GERD/Reflux, Hyperlipidemia, Hypertension, Musculoskeletal Disorder Additional Past Medical History / Comment(s): bilat glaucoma, chronic Back pain History of Any Multi-Drug Resistant Organisms: None Reported Past Surgical History: Bariatric Surgery, Bowel Resection Additional Past Surgical History / Comment(s): COLONOSCOPY, EGD, Hemorrhoidectomy, gastric sleeve 10/20/19 (Dr. Osborne) Past Anesthesia/Blood Transfusion Reactions: Motion Sickness Smoking Status: Former smoker - Past Family History Mother Family Medical History: Cancer Additional Family Medical History / Comment(s): lung CA Brother(s) Family Medical History: Cancer Sister(s) Family Medical History: Cancer Additional Family Medical History / Comment(s): breast CA Medications and Allergies Home Medications Medication Instructions Recorded Confirmed Type lisinopriL [Zestril] 20 mg PO HS 04/08/18 02/18/21 History Latanoprost Ophth [Xalatan 0.005%] 1 drop BOTH EYES HS 10/13/19 02/18/21 History Vitamin B Complex 1 each PO DAILY 01/31/20 02/18/21 History Metoprolol Succinate [Toprol XL] 50 mg PO HS 08/13/20 02/18/21 History metFORMIN HCL 1,000 mg PO HS 08/13/20 02/18/21 History Omeprazole Magnesium [PriLOSEC OTC] 20 mg PO DAILY PRN 02/18/21 02/18/21 History Allergies Allergy/AdvReac Type Severity Reaction Status Date / Time No Known Allergies Allergy Verified 02/19/21 09:48 Surgical - Exam Vital Signs Temp Pulse Resp BP Pulse Ox 97.5 F L 57 L 16 168/81 99 02/19/21 09:52 02/19/21 09:52 02/19/21 09:52 02/19/21 09:52 02/19/21 09:52 - General well developed, well nourished, no distress - Eyes PERRL - ENT normal pinna - Neck no masses - Respiratory normal expansion - Cardiovascular Rhythm: regular - Abdomen Abdomen: soft, non tender Hernia: incisional (10 cm incarcerated incisional hernia) Results - Labs Abnormal Lab Results - Last 24 Hours (Table) 02/19/21 Range/Units 10:10 POC Glucose (mg/dL) 110 H (75-99) mg/dL Assessment and Plan Assessment: Incarcerated incisional hernia. We'll perform open repair.
[2021-02-19] MEDS ORDERED: GLYCOPYRROLATE 0.2 MG/ML 2 ML VIAL ONE (11:48)
[2021-02-19] MEDS ORDERED: SUCCINYLCHOLINE CHLORIDE 100 MG/5 ML SYR IV ONE (11:48)
[2021-02-19] MEDS ORDERED: PROPOFOL 10 MG/ML 20 ML VIAL IV ONE (11:48)
[2021-02-19] MEDS ORDERED: fentaNYL (PF) 50 MCG/ML 2 ML AMP ONE (11:48)
[2021-02-19] MEDS ORDERED: ROPIVACAINE 5 MG/ML 30 ML VIAL ONE (11:48)
[2021-02-19] MEDS ORDERED: KETAMINE 10 MG/ML 20 ML VIAL ONE (11:48)
[2021-02-19] MEDS ORDERED: ePHEDrine SULFATE/0.9% NACL/PF 50 MG/5 ML SYRINGE IV ONE (11:48)
[2021-02-19] MEDS ORDERED: NEOSTIGMINE 1 MG/ML 10 ML VIAL ONE (11:48)
[2021-02-19] MEDS ORDERED: ROCURONIUM 10 MG/ML (5 ML VIAL) IV ONE (11:48)
[2021-02-19] MEDS ORDERED: MIDAZOLAM 2 MG/2 ML VIAL ONE (11:48)
[2021-02-19] MEDS ORDERED: traMADol 50 MG TAB PO PRN (12:47)
[2021-02-19] MEDS ORDERED: HYDROmorphone 0.5 MG/0.5 ML SYRINGE IVP PRN (12:47)
[2021-02-19] MEDS ORDERED: NALOXONE 0.4 MG/ML 1 ML VIAL IV PRN (12:47)
[2021-02-19] MEDS ORDERED: LACTATED RINGERS 1,000 ML IV ONE ×2 (12:47→12:48)
--- NOTE | 2021-02-19 12:47 | P.OP ---
Date of Procedure: 02/19/21 Preoperative Diagnosis: Incarcerated incisional hernia Postoperative Diagnosis: Cursory incisional hernia Procedure(s) Performed: (Incarcerated incisional hernia with mesh Anesthesia: NATHAN Surgeon: Jonh Osborne Estimated Blood Loss (ml): 10 Pathology: other (Hernia sac) Condition: stable Disposition: PACU Description of Procedure: The patient's placed on the operating table in the supine position. She received general anesthesia. Her abdomen was prepped and draped in sterile fashion. The skin was incised midline. The hernia sac was then dissected free from subcutaneous tissue. There is a cousin (sent to pathology. The fascial defect measured approximately 10 cm diameter. Using a #1 strep suture the fascial repair was performed. 2 #1 strep sutures were used. Next a piece of Prolene mesh was placed over top apparent secured to the superior strep tacker. A FIORDALIZA drains placed over top of this and brought through separate stab incision Gini's fascia closed 0 Vicryl. Skin was closed sandro. Patient top she will was sent to recovery room in stable condition.
[2021-02-19] MEDS: HYDROmorphone 0.5 MG/0.5 ML SYRINGE IVP PRN ×4 (13:08→13:52)
[2021-02-19] MEDS: ONDANSETRON 4 MG/2 ML VIAL IVP PRN ×2 (13:33→18:37)
[2021-02-19] MEDS ORDERED: KETOROLAC 15 MG/ML 1 ML VIAL IVP ONE (13:45)
[2021-02-19 14:31] LABS: Glucose,Whole Blood 170 mg/dL (75-99)
[2021-02-19] MEDS ORDERED: diphenhydrAMINE 50 MG/ML 1 ML VIAL IVP ONE (14:37)
[2021-02-19 17:59] LABS: Glucose,Whole Blood 158 mg/dL (75-99)
[2021-02-19] MEDS: INSULIN ASPART (NovoLOG) 100 UNIT/ML VIAL SQ SCH ×2 (18:05→21:03)
[2021-02-19] MEDS ORDERED: PANTOPRAZOLE 40 MG TABLET PO STA (18:29)
[2021-02-19] MEDS: KETOROLAC 15 MG/ML 1 ML VIAL IVP SCH (18:37)
[2021-02-19 20:50] LABS: Glucose,Whole Blood 182 mg/dL (75-99)
[2021-02-19] MEDS ORDERED: PANTOPRAZOLE 40 MG TABLET PO PRN (22:57)
[2021-02-19] MEDS ORDERED: METOPROLOL SUCCINATE (ER) 50 MG TAB.ER.24H PO SCH (23:00)
[2021-02-19] MEDS: CALCIUM CARBONATE 500 MG CHEWABLE PO PRN (23:43)
[2021-02-20] MEDS: KETOROLAC 15 MG/ML 1 ML VIAL IVP SCH ×2 (00:20→06:47)
[2021-02-20] MEDS: HYDROcodone/APAP 5-325MG 1 EACH TAB PO PRN ×2 (02:08→08:41)
[2021-02-20] MEDS: LACTATED RINGERS 1,000 ML IV SCH (03:59)
[2021-02-20 06:56] LABS: Glucose,Whole Blood 135 mg/dL (75-99)
[2021-02-20 08:23] LABS: Basophils % (A) 0 %; Eosinophils # (A) 0.1 k/uL (0-0.7); Eosinophils % (A) 1 %; HCT 32.7 % (34.0-46.0); HGB 11.4 gm/dL (11.4-16.0); Lymphocytes # (A) 1.3 k/uL (1.0-4.8); Lymphocytes % (A) 11 %; MCH 30.9 pg (25.0-35.0); MCHC 34.9 g/dL (31.0-37.0); MCV 88.4 fL (80.0-100.0); Mean Platelet Volume 8.4; Monocytes # (A) 0.7 k/uL (0-1.0); Monocytes % (A) 6 %; Neutrophils # (A) 10.1 k/uL (1.3-7.7); Neutrophils % (A) 82 %; Platelet Count 270 k/uL (150-450); RDW 13.1 % (11.5-15.5); WBC 12.2 k/uL (3.8-10.6)
[2021-02-20 08:29] LABS: Calcium 9.9 mg/dL (8.4-10.2); Potassium 4.8 mmol/L (3.5-5.1)
[2021-02-20] MEDS: CALCIUM CARBONATE 500 MG CHEWABLE PO PRN (08:40)
[2021-02-20] MEDS: ONDANSETRON 4 MG/2 ML VIAL IVP PRN (08:41)
[2021-02-20] MEDS ORDERED: lisinopriL 20 MG TAB PO SCH (09:00)
[2021-02-20] MEDS ORDERED: ENOXAPARIN 40 MG/0.4 ML SYRINGE SQ SCH (09:00)
[2021-02-20 09:02] VITALS: BP 148/80; PULSE 59; RESP 16; TEMP 98.7
--- NOTE | 2021-02-20 11:49 | P.DS ---
Providers Date of admission: 02/20/21 00:29 Expected date of discharge: 02/20/21 Attending physician: Jonh Osborne Consults: 02/19/21 12:47 Consult Physician Routine Consulting Provider: Ivan Virk Consult Reason/Comments: Medical management Do you want consulting provider notified?: Yes Primary care physician: Bhavya Castellon Hospital Course: Discharge diagnosis 1. Incarcerated incisional hernia status post repair of incarcerated incisional hernia with mesh placement Hospital course This is a 65-year-old female who presents for repair of incarcerated incisional hernia. She is status post repair of incarcerated incisional hernia with mesh placement. Patient tolerated surgery well. Her pain is controlled. She is tolerating diet. She is passing gas. She is up and ambulating. She is afebrile. She is stable for discharge. Please refer to chart for any further details. Physician Service Engineer note has been reviewed by physician. Signing provider agrees with the documented findings, assessment, and plan of care. Patient Condition at Discharge: Stable Plan - Discharge Summary Discharge Rx Participant: Yes New Discharge Prescriptions: New HYDROcodone/APAP 5-325MG [[place] 5-325] 1 tab PO Q6HR PRN 3 Days #12 tab PRN Reason: Pain Docusate [Colace] 100 mg PO BID #30 capsule No Action lisinopriL [Zestril] 20 mg PO HS Latanoprost Ophth [Xalatan 0.005%] 1 drop BOTH EYES HS Vitamin B Complex 1 each PO DAILY metFORMIN HCL 1,000 mg PO HS Metoprolol Succinate [Toprol XL] 50 mg PO HS Omeprazole Magnesium [PriLOSEC OTC] 20 mg PO DAILY PRN PRN Reason: Heartburn Discharge Medication List lisinopriL [Zestril] 20 mg PO HS 04/08/18 [History] Latanoprost Ophth [Xalatan 0.005%] 1 drop BOTH EYES HS 10/13/19 [History] Vitamin B Complex 1 each PO DAILY 01/31/20 [History] Metoprolol Succinate [Toprol XL] 50 mg PO HS 08/13/20 [History] metFORMIN HCL 1,000 mg PO HS 08/13/20 [History] Omeprazole Magnesium [PriLOSEC OTC] 20 mg PO DAILY PRN 02/18/21 [History] Docusate [Colace] 100 mg PO BID #30 capsule 02/20/21 [Rx] HYDROcodone/APAP 5-325MG [[place] 5-325] 1 tab PO Q6HR PRN 3 Days #12 tab 02/20/21 [Rx] Follow up Appointment(s)/Referral(s): Jonh Osborne MD [STAFF PHYSICIAN] - 02/27/21 2:45 pm Activity/Diet/Wound Care/Special Instructions: Medicine service to complete discharge med rec No driving while taking [place] No lifting over 10 pounds You may shower. No soaking or tub baths for 2 weeks Very light activity until you are reevaluated at your follow up appointment with your surgeon Keep a log of FIORDALIZA drain output and bring with you to your follow-up appointment Milk/strip drains 2-3 times a day Discharge Disposition: HOME SELF-CARE
[2021-02-20 17:06] LABS: Hemoglobin A1C 5.5 % (4.0-6.0)
[2021-02-20] MEDS ORDERED: LATANOPROST 0.005% OPHTH DROPS 2.5 ML BTL BOTH EYES SCH (21:00)
== END 2021-02-20 13:23 | disposition home or self-care (01) ==
LOC: OR 09:00 → 6PED 14:06 → OR 02-20 00:58
PROVIDERS: ADMIT Surgery; ATTEND Surgery
DX: K43.0 Incisional hernia with obstruction, without gangrene (principal); E11.9 Type 2 diabetes mellitus without complications; E78.5 Hyperlipidemia, unspecified; I10 Essential (primary) hypertension; K21.9 Gastro-esophageal reflux disease without esophagitis; H40.9 Unspecified glaucoma; G89.29 Other chronic pain; M54.9 Dorsalgia, unspecified; Z79.84 Long term (current) use of oral hypoglycemic drugs; Z79.899 Other long term (current) drug therapy; Z98.84 Bariatric surgery status; Z90.49 Acquired absence of other specified parts of digestive tract; Z87.891 Personal history of nicotine dependence; Z80.1 Family history of malignant neoplasm of trachea, bronchus and lung; Z80.3 Family history of malignant neoplasm of breast
CPT/HCPCS: 64999; 76942; 80048; 85025; 88302; 83036; 49561; 49568; G0378; C1781; J2250; J1200; J1644; J1100; J2710; J0690; J2405 ×2; J2001; J1650; J3010; J2795; J1885 ×2; J0330; J2704; J1170

== ENCOUNTER → 2021-08-11 | Outpatient (CLI) | payer BC ==
[2021-08-11 14:27] VITALS: BP 153/103; PULSE 73; TEMP 98; BMI 29.7
--- NOTE | 2021-08-26 11:01 | P.HPBAR ---
Bariatric H&P - History & Physicial H&P Date: 08/11/21 History & Physicial: Visit/CC: sleeve follow up Patient initial contact: Initial weight: 97.522 kg Initial weight in pounds: 215.00 Height: 5 ft Initial BMI: 42.0 Last weight: Current weight: 68.946 kg Current weight in pounds: 152.00 Current BMI: 29.7 [place] body weight (based on NIH guidelines): 45.359 kg Excess body weight loss: 54.7% The patient is a 66 year-old F who presents for Bariatric Assessment. Patient presents today for sleeve gastric fall. She's had complaints of GERD. Past Medical History Past Medical History: Diabetes Mellitus, Eye Disorder, GERD/Reflux, Hyperlipi demia, Hypertension, Musculoskeletal Disorder Additional Past Medical History / Comment(s): bilat glaucoma, chronic Back pain History of Any Multi-Drug Resistant Organisms: None Reported Past Surgical History: Bariatric Surgery, Bowel Resection Additional Past Surgical History / Comment(s): COLONOSCOPY, EGD, Hemorrhoidectomy, gastric sleeve 10/20/19 (Dr. Osborne) Past Anesthesia/Blood Transfusion Reactions: Motion Sickness Past Psychological History: No Psychological Hx Reported Smoking Status: Former smoker Past Alcohol Use History: None Reported Additional Past Alcohol Use History / Comment(s): Smoked 1 year, QUIT SMOKING 1996. Past Drug Use History: Marijuana Additional Drug Use History / Comment(s): approx. 8 JOINTS DAILY - Past Family History Mother Family Medical History: Cancer Additional Family Medical History / Comment(s): lung CA Brother(s) Family Medical History: Cancer Sister(s) Family Medical History: Cancer Additional Family Medical History / Comment(s): breast CA Surgical - Exam Vital Signs Temp Pulse BP 98 F 73 153/103 08/11/21 14:24 08/11/21 14:24 08/11/21 14:24 - General well developed, well nourished, no distress - Eyes PERRL - ENT normal pinna - Neck no masses - Respiratory normal expansion - Cardiovascular Rhythm: regular - Abdomen Abdomen: soft, non tender Bariatric Assessment & Plan Plan: Testicle sleeve history. Patient's GERD is minimal and will be observed. She'll follow-up in 4 weeks. Bariatric Checklist Checklist: Plan: Checklist: EGD: 1. Hiatal hernia: 2. H. Pylori: HgbA1c: Vitamin D: Smoking: Former smoker Primary care physician referral: Bhavya Castellon (pt see's Estella Shafer NJovanaP. at [facility]) Psychiatry clearance: Cardiology clearance: Sleep study: Diet journal: VTE risk score: VTE risk level: Rehab needs at discharge:
== END ==
LOC: BARWHC3 12:59
PROVIDERS: ATTEND Surgery
DX: Z09 Encounter for follow-up examination after completed treatment for conditions other than malignant neoplasm (principal); K21.9 Gastro-esophageal reflux disease without esophagitis; E11.9 Type 2 diabetes mellitus without complications; E78.5 Hyperlipidemia, unspecified; I10 Essential (primary) hypertension; Z98.84 Bariatric surgery status; Z87.891 Personal history of nicotine dependence
CPT/HCPCS: 99211

== ENCOUNTER → 2021-09-10 | Outpatient (CLI) | payer BC | END | disposition home or self-care (01) | LOC: LABWHC1 09:03 | PROVIDERS: ATTEND Physician Assistant Medical | DX: H02.409 Unspecified ptosis of unspecified eyelid (principal); R29.810 Facial weakness | CPT/HCPCS: 36415; 83519 ==

== ENCOUNTER → 2021-09-26 | Outpatient (CLI) | payer BC ==
--- NOTE | 2021-09-26 16:42 | MR ---
EXAMINATION TYPE: MR brain wo/w con DATE OF EXAM: 09/26/2021 COMPARISON: 05/23/2020 HISTORY: Eyelid Ptosis, Difficulty swallowing CONTRAST: Performed utilizing 7 mL intravenous Gadavist gadolinium contrast. TECHNIQUE: Multiplanar, multiecho imaging on a 3.0 Jonna magnet is performed through the brain. Stud y is performed within 24 hours of arrival to the hospital. The craniovertebral junction is normal. The pituitary is normal. Diffusion-weighted imaging is performed. No abnormal hyperintensity is present to suggest an acute i ntracranial infarct or acute ischemic change. There are scattered punctate areas of hyperintensity on T2 and Inversion Recovery weighted sequences in the centrum semiovale bilaterally which are non-specific but can be related to microvascular ische cecilia changes. Ventricles and sulci are appropriate for the patient age. No abnormal enhancement is evident. IMPRESSIONS: 1. Stable appearing chronic periventricular white matter ischemic type changes.
== END | disposition home or self-care (01) ==
LOC: RADMRIMAIN 12:03
PROVIDERS: ATTEND Family Medicine
DX: I67.82 Cerebral ischemia (principal); H02.409 Unspecified ptosis of unspecified eyelid
CPT/HCPCS: 70553; A9585

== ENCOUNTER → 2021-10-02 | Outpatient (CLI) | payer BC ==
[2021-10-02 18:54] LABS: Basophils # (A) 0.07 X 10*3/uL (0.00-0.10); Basophils % (A) 0.5 %; Eosinophils # (A) 0.14 X 10*3/uL (0.04-0.35); Eosinophils % (A) 0.9 %; HCT 37.8 % (37.2-46.3); HGB 12.6 g/dL (12.0-15.0); Lymphocytes # (A) 1.56 X 10*3/uL (0.90-5.00); Lymphocytes % (A) 10.1 %; MCH 28.5 pg (27.0-32.0); MCHC 33.3 g/dL (32.0-37.0); MCV 85.5 fL (80.0-97.0); Mean Platelet Volume 13.3 fL (9.5-12.2); Monocytes # (A) 0.66 X 10*3/uL (0.20-1.00); Monocytes % (A) 4.3 %; Neutrophils # (A) 12.97 X 10*3/uL (1.80-7.70); Neutrophils % (A) 83.9 %; Platelet Count 252 X 10*3/uL (140-440); RBC 4.42 X 10*6/uL (4.10-5.20); RDW 14.4 % (11.5-14.5); WBC 15.45 X 10*3/uL (4.50-10.00)
[2021-10-02 20:14] LABS: African American GFR (CKD) 45.5 (60.0-200.0); Albumin 4.7 g/dL (3.8-4.9); Albumin/Globulin Ratio 1.86 (1.60-3.17); Anion Gap 18.4 mmol/L (4.00-12.00); BUN/Creat Ratio 16.6 Ratio (12.00-20.00); Blood Urea Nitrogen 23.4 mg/dL (9.0-27.0); Calcium 10.3 mg/dL (8.7-10.3); Carbon Dioxide 20.8 mmol/L (21.6-31.8); Globulin 2.6 g/dL (1.6-3.3); Non-African American GFR(CKD) 39.3 (60.0-200.0); T4, Free (Free Thyroxine) 1.23 ng/dL (0.800-1.800); Total Bilirubin 0.4 mg/dL (0.30-1.20); Total Protein 7.3 g/dL (6.2-8.2)
== END | disposition home or self-care (01) ==
LOC: LABWHC1 13:20
PROVIDERS: ATTEND Psychiatry & Neurology Neurology
DX: G70.00 Myasthenia gravis without (acute) exacerbation (principal); E08.610 Diabetes mellitus due to underlying condition with diabetic neuropathic arthropathy; E05.00 Thyrotoxicosis with diffuse goiter without thyrotoxic crisis or storm; M33.22 Polymyositis with myopathy; R53.83 Other fatigue
CPT/HCPCS: 36415; 80053; 82550; 83519; 84439; 84443; 84481; 85025

== ENCOUNTER → 2021-10-22 | Outpatient (CLI) | payer BC ==
--- NOTE | 2021-10-23 11:20 | CT ---
EXAMINATION TYPE: CT chest wo con DATE OF EXAM: 10/22/2021 COMPARISON: NONE HISTORY: THYMOMA, history of myasthenia gravis for [address] DLP: 368 mGycm. Automated Exposure Control for Dose Reduction was Utilized. TECHNIQUE: CT scan of the thorax is performed without IV contrast. FINDINGS: LUNGS: The lungs are grossly clear, there is no concerning parenchymal mass or nodule identified. T here is no pleural effusion or pneumothorax seen. The tracheobronchial tree is patent. MEDIASTINUM: Lack of IV contrast is noted to limit evaluation for mediastinal and especially hilar ad enopathy. There are no definitive greater than 1 cm mediastinal lymph nodes. No suspicious anterior s uperior mediastinal mass or thymoma. No cardiomegaly or pericardial effusion is seen. Calcification at level of the mitral valve and to lesser degree at the level of the aortic valve. Coronary artery c alcification is present which is noted marker for underlying coronary artery disease. Ascending aorta ectatic up to 3.7 cm. OTHER: Surgical changes from gastric sleeve procedure noted. Small size hiatal hernia. Low dense righ t adrenal mass measuring 3.4 cm axial image 51 with Hounsfield units averaging -22 having both fat an d soft tissue density consistent with benign myolipoma. IMPRESSION: No suspicious anterior superior mediastinal mass or thymoma.
== END ==
LOC: RADCTMAIN 13:21
PROVIDERS: ATTEND Family Medicine
DX: G70.01 Myasthenia gravis with (acute) exacerbation (principal)
CPT/HCPCS: 71250; 82565; 84520

== ENCOUNTER → 2021-11-10 | Outpatient (CLI) | payer BC ==
--- NOTE | 2021-11-10 15:13 | P.HPBAR ---
Bariatric H&P - History & Physicial H&P Date: 11/10/21 History & Physicial: Visit/CC: Patient initial contact: Initial weight: 97.522 kg Initial weight in pounds: Height: Initial BMI: Last weight: Current weight: 19 Current weight in pounds: Current BMI: [place] body weight (based on NIH guidelines): Excess body weight loss: The patient is a 66 year-old F who presents for Bariatric Assessment. Patient has not been seen for 3 months. She has history of myasthenia gravis. She's had trouble eating due to this. He is also had a history of some mild GERD. Past Medical History Past Medical History: Diabetes Mellitus, Eye Disorder, GERD/Reflux, Hyperlipidemia, Hypertension, Musculoskeletal Disorder Additional Past Medical History / Comment(s): bilat glaucoma, chronic Back pain History of Any Multi-Drug Resistant Organisms: None Reported Past Surgical History: Bariatric Surgery, Bowel Resection Additional Past Surgical History / Comment(s): COLONOSCOPY, EGD, Hemorrhoidectomy, gastric sleeve 10/20/19 (Dr. Osborne) Past Anesthesia/Blood Transfusion Reactions: Motion Sickness Past Psychological History: No Psychological Hx Reported Smoking Status: Former smoker Past Alcohol Use History: None Reported Additional Past Alcohol Use History / Comment(s): Smoked 1 year, QUIT SMOKING 1996. Past Drug Use History: Marijuana Additional Drug Use History / Comment(s): approx. 8 JOINTS DAILY - Past Family History Mother Family Medical History: Cancer Additional Family Medical History / Comment(s): lung CA Brother(s) Family Medical History: Cancer Sister(s) Family Medical History: Cancer Additional Family Medical History / Comment(s): breast CA Surgical - Exam - General well developed, well nourished, no distress - Eyes PERRL - ENT normal pinna - Neck no masses - Cardiovascular Rhythm: regular - Abdomen Abdomen: soft, non tender Bariatric Assessment & Plan Plan: Status post sleeve yesterday. Patient has had significant weight loss due to her chronic illness with myasthenia gravis. Patient follow-up one month rejection. She was encouraged to increase her calories. She will try protein drink. Her GERD is minimal and will be observed. She has no dysphagia currently. Bariatric Checklist Checklist: Plan: Checklist: EGD: 1. Hiatal hernia: 2. H. Pylori: HgbA1c: Vitamin D: Smoking: Former smoker Primary care physician referral: Bhavya Castellon (pt see's Estella Shafer N.P. at [facility]) Psychiatry clearance: Cardiology clearance: Sleep study: Diet journal: VTE risk score: VTE risk level: Rehab needs at discharge:
[2021-11-10 15:16] VITALS: BP 114/79; PULSE 69; RESP 16; TEMP 97.9; BMI 23.2
== END ==
LOC: BARWHC3 14:52
PROVIDERS: ATTEND Surgery
DX: Z09 Encounter for follow-up examination after completed treatment for conditions other than malignant neoplasm (principal); K21.9 Gastro-esophageal reflux disease without esophagitis; G70.00 Myasthenia gravis without (acute) exacerbation; E11.9 Type 2 diabetes mellitus without complications; E78.5 Hyperlipidemia, unspecified; I10 Essential (primary) hypertension; Z98.84 Bariatric surgery status; Z87.891 Personal history of nicotine dependence
CPT/HCPCS: 99211

== ENCOUNTER 2021-11-18 13:30 | Inpatient (IN) | payer BC ==
[2021-11-18] MEDS ORDERED: SODIUM CHLORIDE 0.9% 1,000 ML IV ONE ×2 (13:46)
[2021-11-18] MEDS ORDERED: LORazepam 2 MG/ML INJ IV PRN ×2 (13:47)
[2021-11-18] MEDS ORDERED: IPRATROPIUM-ALBUTEROL 3 ML NEB INHALATION PRN (13:47)
--- NOTE | 2021-11-18 13:54 | ED ---
General Adult HPI - General Chief complaint: Altered Mental Status Stated complaint: Unresponsive Time Seen by Provider: 11/18/21 13:30 Source: patient, RN notes reviewed Mode of arrival: ambulatory Limitations: no limitations - History of Present Illness Initial comments: Patient is an unresponsive, approximately 67-year-old female presenting by EMS priority 1. Patient last known well yesterday. Patient has had drowsiness and shortness of breath all morning. EMS found patient with asystole and did perform CPR between 25 and 40 minutes. Epinephrine 3 was also given. They did have return of circulation. Patient is unresponsive on arrival. Patient is not intubated secondary to EMS reported difficult intubation. Patient was immediately intubated upon presentation. Blood pressure was low and central line was placed. Patient has some sort of muscular disease based off history by EMS. Further history is limited at this time. - Related Data Home Medications Medication Instructions Recorded Confirmed Ergocalciferol [Vitamin D2 (1250 1,250 mcg PO Q7D 11/18/21 11/18/21 Mcg = 33845 Iu)] Metoprolol Succinate (ER) [Toprol 100 mg PO DAILY 11/18/21 11/18/21 Xl] Omeprazole 40 mg PO DAILY 11/18/21 11/18/21 Pyridostigmine [Mestinon] 60 mg PO QID 11/18/21 11/18/21 lisinopriL [Zestril] 20 mg PO DAILY 11/18/21 11/18/21 metFORMIN HCL [Glucophage] 1,000 mg PO DAILY 11/18/21 11/18/21 predniSONE [Deltasone] 60 mg PO BID 11/18/21 11/18/21 Allergies Allergy/AdvReac Type Severity Reaction Status Date / Time No Known Allergies Allergy Unverified 11/18/21 16:26 Review of Systems ROS Statement: Those systems with pertinent positive or pertinent negative responses have been documented in the HPI. ROS Other: All systems not noted in ROS Statement are negative. Limitations: ROS unobtainable due to patients medical condition Respiratory: Reports: dyspnea Past Medical History Past Medical History: No Reported History Additional Past Medical History / Comment(s): no family, pt unresponsive. History of Any Multi-Drug Resistant Organisms: None Reported Past Surgical History: No Surgical Hx Reported Additional Past Surgical History / Comment(s): no family. pt unresponive. Past Psychological History: No Psychological Hx Reported Smoking Status: Never smoker Past Alcohol Use History: None Reported Past Drug Use History: None Reported General Exam Limitations: no limitations General appearance: obtunded Head exam: Present: atraumatic Pupils: Present: mydriatic ENT exam: Present: normal oropharynx Neck exam: Present: normal inspection Respiratory exam: Present: other (Agonal respirations.) Cardiovascular Exam: Present: regular rate, normal rhythm Expanded Peripheral pulses: 1+: Radial (R), Radial (L), Dorsalis Pedis (R), Dorsalis Pedis (L), 2+: Carotid (R), Carotid (L), Femoral (R), Femoral (L) GI/Abdominal exam: Present: soft. Absent: tenderness, pulsatile mass Extremities exam: Present: normal inspection Neurological exam: Present: other (Unresponsive. GCS 3) Psychiatric exam: Present: other (Nonverbal) Skin exam: Present: other (Patient does have purplish discolored rash, mostly in the anterior trunk that appears almost petechial. Lesions are approximately 5 mm or greater in size.) Course Vital Signs 11/18/21 11/18/21 11/18/21 13:30 13:36 13:40 Temperature 97.0 F L Pulse Rate 68 74 Pulse Rate [ Brake Drum Molder ] Respiratory 4 L 16 Rate Blood Pressure 48/29 57/34 O2 Sat by Pulse 50 L 90 L Oximetry 11/18/21 11/18/21 11/18/21 13:45 13:51 14:51 Temperature Pulse Rate 74 73 59 L Pulse Rate [ Brake Drum Molder ] Respiratory 16 18 16 Rate Blood Pressure 86/48 69/46 60/36 O2 Sat by Pulse 98 99 99 Oximetry 11/18/21 11/18/21 11/18/21 15:05 15:16 15:23 Temperature Pulse Rate 57 L 57 L 58 L Pulse Rate [ Brake Drum Molder ] Respiratory 18 18 16 Rate Blood Pressure 67/44 84/56 101/74 O2 Sat by Pulse 97 84 L Oximetry 11/18/21 11/18/21 11/18/21 15:27 15:45 15:55 Temperature Pulse Rate 58 L 59 L 62 Pulse Rate [ Brake Drum Molder ] Respiratory 18 18 18 Rate Blood Pressure 90/63 103/75 91/70 O2 Sat by Pulse 81 L 79 L Oximetry 11/18/21 15:57 Temperature Pulse Rate Pulse Rate [ 62 Brake Drum Molder ] Respiratory 4 L Rate Blood Pressure O2 Sat by Pulse Oximetry - Reevaluation(s) Reevaluation #1: 11/18/21 14:36 Case was discussed with Dr. Moncada, who will consult for critical care. 11/18/21 16:03 Patient desaturated. Question endotracheal tube placement. Endotracheal tube was removed and replaced. Repeat chest x-ray shows decreased aeration to the left lung however endotracheal tube does appear to be in appropriate position. Dr. Moncada paged again. Patient is on high-dose Levaquin. Family present and identifies patient. Family states patient has excellent not been doing well for several days. Family did do CPR at home. Family states there is history of myasthenia gravis. IV steroid ordered. Intubation #2 used [address] 7[address]5 tube without complication. Breath sounds slightly more on the right than the left. After original chest x-ray tube was repositioned. No medications used. No complications. 11/18/21 16:06 11/18/21 16:18 Case again discussed with Dr. Moncada who is evaluating the patient. 11/18/21 16:26 Case also discussed with Dr. Parkinson who will admit. 11/18/21 16:39 There is concern for pneumonia diagnosed at 1600. Blood culture and lactic acid and IV antibiotics have been ordered. Patient has received greater than 30 mL/kg fluid bolus already. 11/18/21 16:39 Patient seems to have improved following bronchoscopy EKG Findings - EKG Comments: EKG Findings:: Normal sinus rhythm with a rate of 72. MO 154. QRS 152. QT 48. QTC 534. Right axis. Right bundle branch block. Nonspecific ST-T. Procedures - ABG Interpretation Ph: 6.8 PCO2: 55.6 PO2: 274 Bicarbonate: 8.8 Interpretation: metabolic acidosis - Central Line Placement Right Femoral Consent Obtained: emergent situation Prep: mask, gown, gloves Central Line Prep: Chlorhexidine scrub Ultrasound Used for Placement: No Central Line Lumen Inserted: triple Bloods Obtained for Lab: Yes Central Line Position: good blood return, all ports aspirated, flushed, capped, sutured in place with 3-0 nylon Dressing Applied: Tegaderm Patient Tolerated Procedure: well, no complications Complications: none - Intubation Laryngoscope: Rosario Size: 3 ET Tube Size: 7.5 Tube Placement Confirmation: visualized tube passing through cords, equal breath sounds bilaterally, no breath sounds over epigastrium, confirmation by capnometry Patient Tolerated Procedure: well, no complications Intubation Complications: none - Sepsis Sepsis Focused Exam #1 Time Sepsis Criteria Met: 16:00 Sepsis Focused Exam Date: 11/18/21 Sepsis Focused Exam Time: 16:59 Sepsis Focused Exam Complete: Yes Vital Signs & RN Notes Reviewed: Yes Capillary Refill: < 2 Seconds: Fingers, Toes Peripheral Pulses: Weak: Radial (R), Radial (L) Skin Color: Normal for Patient Respiratory Exam: rales Cardiovascular Exam: regular rate, normal rhythm Medical Decision Making - Lab Data Result diagrams: 11/18/21 13:43 11/18/21 13:43 Lab Results 11/18/21 11/18/21 11/18/21 Range/Units 13:43 13:43 13:43 WBC 14.3 H (3.8-10.6) k/uL RBC 3.64 L (3.80-5.40) m/uL Hgb 11.4 (11.4-16.0) gm/dL Hct 35.3 (34.0-46.0) % MCV 96.9 (80.0-100.0) fL MCH 31.2 (25.0-35.0) pg MCHC 32.2 (31.0-37.0) g/dL RDW 17.2 H (11.5-15.5) % Plt Count 169 (150-450) k/uL MPV 9.3 Neutrophils % 93 % Lymphocytes % 4 % Monocytes % 2 % Eosinophils % 1 % Basophils % 0 % Neutrophils # 13.2 H (1.3-7.7) k/uL Lymphocytes # 0.5 L (1.0-4.8) k/uL Monocytes # 0.3 (0-1.0) k/uL Eosinophils # 0.1 (0-0.7) k/uL Basophils # 0.0 (0-0.2) k/uL Hypochromasia Moderate Poikilocytosis Slight Anisocytosis Slight Macrocytosis Slight PT 11.6 (9.0-12.0) sec INR 1.1 (<1.2) APTT 35.8 H (22.0-30.0) sec Sodium 144 (137-145) mmol/L Potassium 4.8 (3.5-5.1) mmol/L Chloride 126 H (98-107) mmol/L Carbon Dioxide 8 L* (22-30) mmol/L Anion Gap 10 mmol/L BUN 73 H (7-17) mg/dL Creatinine 3.65 H (0.52-1.04) mg/dL Est GFR (CKD-EPI)AfAm 10 (>60 ml/min/1.73 sqM) Est GFR (CKD-EPI)NonAf 8 (>60 ml/min/1.73 sqM) Glucose 248 H (74-99) mg/dL Calcium 9.4 (8.4-10.2) mg/dL Total Bilirubin 0.5 (0.2-1.3) mg/dL AST 108 H (14-36) U/L ALT 83 H (4-34) U/L Alkaline Phosphatase 64 (38-126) U/L Creatine Kinase (30-135) U/L Troponin I (0.000-0.034) ng/mL Total Protein 5.9 L (6.3-8.2) g/dL Albumin 2.8 L (3.5-5.0) g/dL Urine Color Urine Appearance (Clear) Urine pH (5.0-8.0) Ur Specific Turner (1.001-1.035) Urine Protein (Negative) Urine Glucose (UA) (Negative) Urine Ketones (Negative) Urine Blood (Negative) Urine Nitrite (Negative) Urine Bilirubin (Negative) Urine Urobilinogen (<2.0) mg/dL Ur Leukocyte Esterase (Negative) Urine RBC (0-5) /hpf Urine WBC (0-5) /hpf Amorphous Sediment (None) /hpf Granular Casts (0) /lpf Urine Mucus (None) /hpf Urine Opiates Screen (NotDetected) Ur Oxycodone Screen (NotDetected) Urine Methadone Screen (NotDetected) Ur Propoxyphene Screen (NotDetected) Ur Barbiturates Screen (NotDetected) U Tricyclic Antidepress (NotDetected) Ur Phencyclidine Scrn (NotDetected) Ur Amphetamines Screen (NotDetected) U Methamphetamines Scrn (NotDetected) U Benzodiazepines Scrn (NotDetected) Urine Cocaine Screen (NotDetected) U Marijuana (THC) Screen (NotDetected) Serum Alcohol <10 mg/dL 11/18/21 11/18/21 11/18/21 Range/Units 13:43 14:16 14:20 WBC (3.8-10.6) k/uL RBC (3.80-5.40) m/uL Hgb (11.4-16.0) gm/dL Hct (34.0-46.0) % MCV (80.0-100.0) fL MCH (25.0-35.0) pg MCHC (31.0-37.0) g/dL RDW (11.5-15.5) % Plt Count (150-450) k/uL MPV Neutrophils % % Lymphocytes % % Monocytes % % Eosinophils % % Basophils % % Neutrophils # (1.3-7.7) k/uL Lymphocytes # (1.0-4.8) k/uL Monocytes # (0-1.0) k/uL Eosinophils # (0-0.7) k/uL Basophils # (0-0.2) k/uL Hypochromasia Poikilocytosis Anisocytosis Macrocytosis PT (9.0-12.0) sec INR (<1.2) APTT (22.0-30.0) sec Sodium (137-145) mmol/L Potassium (3.5-5.1) mmol/L Chloride (98-107) mmol/L Carbon Dioxide (22-30) mmol/L Anion Gap mmol/L BUN (7-17) mg/dL Creatinine (0.52-1.04) mg/dL Est GFR (CKD-EPI)AfAm (>60 ml/min/1.73 sqM) Est GFR (CKD-EPI)NonAf (>60 ml/min/1.73 sqM) Glucose (74-99) mg/dL Calcium (8.4-10.2) mg/dL Total Bilirubin (0.2-1.3) mg/dL AST (14-36) U/L ALT (4-34) U/L Alkaline Phosphatase (38-126) U/L Creatine Kinase 235 H (30-135) U/L Troponin I 0.104 H* (0.000-0.034) ng/mL Total Protein (6.3-8.2) g/dL Albumin (3.5-5.0) g/dL Urine Color Yellow Urine Appearance Cloudy H (Clear) Urine pH 6.0 (5.0-8.0) Ur Specific Turner 1.019 (1.001-1.035) Urine Protein 2+ H (Negative) Urine Glucose (UA) Negative (Negative) Urine Ketones Negative (Negative) Urine Blood Negative (Negative) Urine Nitrite Negative (Negative) Urine Bilirubin Negative (Negative) Urine Urobilinogen <2.0 (<2.0) mg/dL Ur Leukocyte Esterase Negative (Negative) Urine RBC 2 (0-5) /hpf Urine WBC 8 H (0-5) /hpf Amorphous Sediment Occasional H (None) /hpf Granular Casts 3 (0) /lpf Urine Mucus Rare H (None) /hpf Urine Opiates Screen Not Detected (NotDetected) Ur Oxycodone Screen Not Detected (NotDetected) Urine Methadone Screen Not Detected (NotDetected) Ur Propoxyphene Screen Not Detected (NotDetected) Ur Barbiturates Screen Not Detected (NotDetected) U Tricyclic Antidepress Not Detected (NotDetected) Ur Phencyclidine Scrn Not Detected (NotDetected) Ur Amphetamines Screen Not Detected (NotDetected) U Methamphetamines Scrn Not Detected (NotDetected) U Benzodiazepines Scrn Not Detected (NotDetected) Urine Cocaine Screen Not Detected (NotDetected) U Marijuana (THC) Screen Detected H (NotDetected) Serum Alcohol mg/dL - Radiology Data Radiology results: report reviewed (CT brain reveals no acute process), image reviewed Critical Care Time Critical Care Time: Yes Total Critical Care Time: 55 Disposition Clinical Impression: Altered mental status, Hypotension, Respiratory failure, Shock Disposition: ADMITTED IP TO THIS [facility] Condition: Critical Is patient prescribed a controlled substance at d/c from ED?: No Referrals: None,Stated [REFERRING] - 1-2 days Decision Time: 16:41
[2021-11-18 13:55] LABS: Anisocytosis Slight; Basophils % (A) 0 %; Eosinophils # (A) 0.1 k/uL (0-0.7); Eosinophils % (A) 1 %; HCT 35.3 % (34.0-46.0); HGB 11.4 gm/dL (11.4-16.0); Hypochromasia Moderate; Lymphocytes # (A) 0.5 k/uL (1.0-4.8); Lymphocytes % (A) 4 %; MCH 31.2 pg (25.0-35.0); MCHC 32.2 g/dL (31.0-37.0); MCV 96.9 fL (80.0-100.0); Macrocytosis Slight; Mean Platelet Volume 9.3; Monocytes # (A) 0.3 k/uL (0-1.0); Monocytes % (A) 2 %; Neutrophils # (A) 13.2 k/uL (1.3-7.7); Neutrophils % (A) 93 %; Platelet Count 169 k/uL (150-450); Poikilocytosis Slight; RBC 3.64 m/uL (3.80-5.40); RDW 17.2 % (11.5-15.5); WBC 14.3 k/uL (3.8-10.6)
[2021-11-18 14:06] LABS: ALT 83 U/L (4-34); AST 108 U/L (14-36); African American GFR (CKD) 10 (>60 ml/min/1.73 sqM); Albumin 2.8 g/dL (3.5-5.0); Alcohol <10 mg/dL; Alkaline Phosphatase 64 U/L (38-126); Anion Gap 10 mmol/L; Blood Urea Nitrogen 73 mg/dL (7-17); Calcium 9.4 mg/dL (8.4-10.2); Chloride 126 mmol/L (98-107); Glucose 248 mg/dL (74-99); Non-African American GFR(CKD) 8 (>60 ml/min/1.73 sqM); Potassium 4.8 mmol/L (3.5-5.1); Sodium 144 mmol/L (137-145); Total Bilirubin 0.5 mg/dL (0.2-1.3); Total Protein 5.9 g/dL (6.3-8.2)
[2021-11-18] MEDS: NOREPINEPHRINE 32 MG in SODIUM CHLORIDE 0.9% 218 ML IV SCH (14:07)
[2021-11-18 14:09] LABS: INR 1.1 (<1.2); Partial Thromboplastin Time 35.8 sec (22.0-30.0); Prothrombin Time 11.6 sec (9.0-12.0)
[2021-11-18 14:11] LABS: Carbon Dioxide 8 mmol/L (22-30)
[2021-11-18] MEDS ORDERED: SODIUM CHLORIDE 0.9% 500 ML 500 ML IV STA (14:20)
--- NOTE | 2021-11-18 14:43 | XR ---
EXAMINATION TYPE: XR chest 1V portable DATE OF EXAM: 11/18/2021 COMPARISON: NONE HISTORY: Intubated TECHNIQUE: Single frontal view of the chest is obtained. FINDINGS: The NG tube tip is near the gastroesophageal junction level, cephalad to the level of the stomach. The endotracheal tube tip is overlying the tracheal air column which shows a foreshortened a ppearance, oblique course, possible bend distally. Tip is at the level of the first thoracic vertebra l body. Cardiomediastinal silhouette is within normal limits accounting for patient rotation. There a re overlying artifacts. There is no evident pneumothorax or pleural effusion, some minimal patchy bas ilar and peripheral density may reflect atelectasis. IMPRESSION: Tubes as described. Probable atelectasis, rotated exam, difficult to exclude pneumonia, follow-up patient when clinically stable, report relayed to the EC staff at the time of interpretatio n.
[2021-11-18 14:53] LABS: Amorphous Sediment,Urine Occasional /hpf; Appearance,Urine Cloudy (Clear); Bilirubin,Urine Negative (Negative); Blood,Urine Negative (Negative); Color,Urine Yellow; Glucose,Urine (UA) Negative (Negative); Granular Casts,Urine 3 /lpf (0); Ketones,Urine Negative (Negative); Leukocyte Esterase,Urine Negative (Negative); Mucus,Urine Rare /hpf; Nitrite,Urine Negative (Negative); Protein,Urine 2+ (Negative); RBC,Urine 2 /hpf (0-5); Specific Gravity,Urine 1.019 (1.001-1.035); Urobilinogen,Urine <2.0 mg/dL (<2.0); WBC,Urine 8 /hpf (0-5)
[2021-11-18] MEDS ORDERED: SODIUM CHLORIDE 0.9% 2,000 ML IV STA (14:54)
[2021-11-18 15:00] LABS: Amphetamine Screen,Urine Not Detected (NotDetected); Barbiturate Screen,Urine Not Detected (NotDetected); Benzodiazepines Screen,Urine Not Detected (NotDetected); Cocaine Screen,Urine Not Detected (NotDetected); Methadone Screen, Urine Not Detected (NotDetected); Opiate Screen,Urine Not Detected (NotDetected); Oxycodone Screen, Urine Not Detected (NotDetected); Phencyclidine Screen,Urine Not Detected (NotDetected); Tricyclic Antidepressant,Urine Not Detected (NotDetected); Urn Cannabinoid Scrn Detected (NotDetected)
--- NOTE | 2021-11-18 15:05 | XR ---
EXAMINATION TYPE: XR chest 1V portable DATE OF EXAM: 11/18/2021 COMPARISON: Prior chest x-ray same dated earlier time HISTORY: Intubated, tube adjustment TECHNIQUE: Single frontal view of the chest is obtained. FINDINGS: The NG tube is stable in position, shows the distal tip cephalad to the stomach esophagus junction. Endotracheal tube is thought to have been repositioned and is overlying the tracheal air co lumn approximately 7.5 cm from the blaine. Patient is again rotated. Patchy peripheral densities are suspected, correlate for pneumonia. No evident pneumothorax or pleural effusion. Cardiac mediastinal sweat is stable. IMPRESSION: Correlate for possible pneumonia, expiratory rotated exam. Interval endotracheal tube re adjustment, NG tube as described.
[2021-11-18 15:09] LABS: ABG Base Excess -25.6 mmol/L; ABG Oxygen Saturation 98.9 % (94-97); ABG PCO2 56 mmHg (35-45); ABG PO2 274 mmHg (83-108); ABG TCO2 11 mmol/L (19-24); Allen Test Performed? Yes
--- NOTE | 2021-11-18 15:11 | CT ---
EXAMINATION TYPE: CT brain wo con DATE OF EXAM: 11/18/2021 HISTORY: Altered mental status. CT DLP: 1082.4 mGycm. Automated Exposure Control for Dose Reduction was Utilized. TECHNIQUE: CT scan of the head is performed without contrast. COMPARISON: None. FINDINGS: There is no acute intracranial hemorrhage or midline shift identified. There is mild diff use ventricular and sulcal prominence consistent with diffuse age-related cerebral atrophy. There is mild low-attenuation in the periventricular white matter consistent with chronic small vessel ischem ic change. The globes are intact bilaterally. Partial visualization of endotracheal and orogastric tubes on the localizer. Dependent fluid in the right maxillary sinus. Retained secretions in the laura opharynx. IMPRESSION: No acute intracranial hemorrhage or midline shift.
[2021-11-18] MEDS ORDERED: SODIUM BICARB 8.4% 50 ML SYR (1 MEQ/ML) IV STA ×2 (15:19→15:52)
[2021-11-18] MEDS ORDERED: DEXAMETHASONE SOD PHOSPHATE 10 MG/ML 1 ML VIAL IVP STA (15:58)
[2021-11-18] MEDS ORDERED: cefTRIAXone IN SWFI 1,000 MG/10 ML SYRINGE IVP STA (15:58)
--- NOTE | 2021-11-18 16:12 | XR ---
EXAMINATION TYPE: XR chest 1V portable DATE OF EXAM: 11/18/2021 COMPARISON: Chest x-ray earlier today. HISTORY: ET tube replacement. TECHNIQUE: Single AP portable frontal supine view of the chest is obtained. FINDINGS: Interval removal of orogastric tube. Endotracheal tube now projects past blaine and right m ainstem bronchus causing complete opacified left hemithorax. Osseous structures remain somewhat demin eralized. Surgical sutures epigastric region redemonstrated. IMPRESSION: As above. Endotracheal tube needs to be pulled back.
--- NOTE | 2021-11-18 16:15 | XR ---
EXAMINATION TYPE: XR chest 1V portable DATE OF EXAM: 11/18/2021 COMPARISON: Chest x-ray earlier today HISTORY: ET tube adjustment. TECHNIQUE: Single AP portable frontal supine view of the chest is obtained. FINDINGS: There is improved positioning of endotracheal tube after repositioning just above blaine b y roughly 2.0 cm. Advise pulling back 2 cm to be more ideal position. Completely opacified left hemithorax redemonstrated silhouetting left heart border. Patchy lateral right midlung opacities redemonstrated. Surgical sutures epigastric region redemonstrated. The osseou s structures are demineralized. IMPRESSION: 1. Improved positioning of endotracheal tube just above blaine, advise pulling back 2.0 cm to be in m ore ideal position. 2. Persistent completely opacified left hemithorax. Advise follow-up x-ray. Stable peripheral right m idlung acute opacity.
[2021-11-18] MEDS ORDERED: NALOXONE 0.4 MG/ML 1 ML VIAL IV PRN (16:20)
[2021-11-18] MEDS ORDERED: LEVOFLOXACIN 750MG-D5W PMX 750 MG in DEXTROSE/WATER 1 150ML.BAG IVPB ONE (16:30)
[2021-11-18] MEDS ORDERED: PIPERACILLIN-TAZOBACTAM 3.375 GM in SODIUM CHLORIDE 0.9% 100 ML IVPB STA (16:44)
--- NOTE | 2021-11-18 16:50 | P.CNPUL ---
History of Present Illness Consult date: 11/18/21 History of present illness: Today 56-year-old female patient with known history of myasthenia gravis who was at home and the patient was becoming progressively more lethargic and less responsive and more drowsy during the day and this is according to the . Subsequently, the patient was found to be completely unresponsive. EMS was called to the scene and the patient was found to be in asystole and CPR was initiated for a total of 25-40 minutes. During the course of the CPR and to the resuscitation, the patient received a total of 3 doses of epinephrine and not intubated on the scene and she was bagged and the patient was brought into the emergency department. In the ED, the patient was immediately intubated. Following the initial intubation, the ET tube was high. ET tube was advanced and it extended into the right mainstem bronchus. At that point, repeat chest x-ray showed complete atelectasis and collapse of the left lung. ET tube was pulled back and the left lung remains collapse. I was asked to evaluate this patient on an emergent basis in the emergency department. At time of my arrival, the patient was completely unresponsive, pupils were round 2 mm in size, nonreactive. She had no corneal. No gag. She wasn't a mechanical venti lator on assist control mode at the rate of 20 with a tidal volume of 450 and FiO2 of 100% with a PEEP of 5. At that point, she had no breath sounds on the left and breath sounds were present on the right. Hemodynamically, the patient was completely hypotensive and shock state. The patient was on norepinephrine at 0.1 mcg/kg per minute. The patient had not making any urine output. I quickly reviewed the labs and the patient underwent second of 14.3 with a hemoglobin 11.4. Coagulation profile was within normal. She was severely acidotic with a serum bicarb of 8 and anion gap of 10 with a BUN of 73 and a creatinine of 3.6. Lactic acid level was still pending. Troponin was 0.104, glucose was at 248, liver functions as well as slightly elevated and abnormal. UA showed +2 protein, 8 wbc's and the urine toxin was positive for marijuana. Chest x-ray as discussed above. CAT scan of the brain was also done in the emergency department that showed no acute abnormalities. Cardiac rhythm is currently a bundle-branch block pattern, and atrial fibrillation with a rate of 80. As mentioned, norepinephrine infusion is running at 0.1. She is got significantly diminished pulses in lower extremities. The skin is mottled. No seizure activity has been noted. I performed a bedside bronchoscopy. I identified a left-sided mucous plug and immediately the mucous plug was removed. After removal of the mucous plug bronchoscopically, the patient showed improvement in oxygenation saturation. Currently I have her on a PEEP of 10. I increased the respirator 30 with a tidal volume of 450 and FiO2 of 100%. Peak airway pressure is 33. The follow- up chest x-rays to follow. In the emergency, came to find other the patient has received a total of 2 L of normal saline. She is currently on normal saline at the rate of 75 mL's an hour. She is also on pressors. She was given IV Rocep hin , the patient was also given IV Decadron 10 mg 1. COVID 19 testing has been sent and the results are still pending for now. she also received 2 doses of sodium bicarb Review of Systems ROS unobtainable: due to endotracheal tube, due to mental status Past Medical History Past Medical History: No Reported History Additional Past Medical History / Comment(s): no family, pt unresponsive. p norbert has history of myasthenia gravis, the patient also has history of diabetes mellitus History of Any Multi-Drug Resistant Organisms: None Reported Past Surgical History: No Surgical Hx Reported Additional Past Surgical History / Comment(s): no family. pt unresponive. Past Psychological History: No Psychological Hx Reported Smoking Status: Never smoker Past Alcohol Use History: None Reported Past Drug Use History: None Reported Medications and Allergies Home Medications Medication Instructions Recorded Confirmed Type Ergocalciferol [Vitamin D2 (1250 1,250 mcg PO Q7D 11/18/21 11/18/21 History Mcg = 74747 Iu)] Metoprolol Succinate (ER) [Toprol 100 mg PO DAILY 11/18/21 11/18/21 History Xl] Omeprazole 40 mg PO DAILY 11/18/21 11/18/21 History Pyridostigmine [Mestinon] 60 mg PO QID 11/18/21 11/18/21 History lisinopriL [Zestril] 20 mg PO DAILY 11/18/21 11/18/21 History metFORMIN HCL [Glucophage] 1,000 mg PO DAILY 11/18/21 11/18/21 History predniSONE [Deltasone] 60 mg PO BID 11/18/21 11/18/21 History Allergies Allergy/AdvReac Type Severity Reaction Status Date / Time No Known Allergies Allergy Unverified 11/18/21 16:26 Physical Exam Vitals: Vital Signs Temp Pulse Pulse Resp BP Pulse Ox 11/18/21 15:57 62 4 L 11/18/21 15:55 62 18 91/70 79 L 11/18/21 15:45 59 L 18 103/75 81 L 11/18/21 15:27 58 L 18 90/63 11/18/21 15:23 58 L 16 101/74 84 L 11/18/21 15:16 57 L 18 84/56 11/18/21 15:05 57 L 18 67/44 97 11/18/21 14:51 59 L 16 60/36 99 11/18/21 13:51 73 18 69/46 99 11/18/21 13:45 74 16 86/48 98 11/18/21 13:40 74 16 57/34 90 L 11/18/21 13:36 68 4 L 48/29 50 L 11/18/21 13:30 97.0 F L Intake and Output 11/18/21 11/18/21 11/18/21 06:59 14:59 22:59 Intake Total 1.840 12.507 Balance 1.840 12.507 Intake: Intake, IV Titration 1.840 12.507 Amount Norepinephrine 32 mg In 1.840 12.507 Sodium Chloride 0.9% 218 ml @ 0.05 MCG/KG/MIN 1. 254 mls/hr IV .Q24H [facility] Rx#:[id number] Other: Weight 53.524 kg Gen. appearance the patient is completely unresponsive to any verbal or painful stimulation. she is running a mechanical ventilator. She has not initiating or triggering any breathing. No agitation. No seizure activity. she has orotr acheal and orotracheal tube an orogastric tube are both in the mother in place. Head exam was generally normal. There was no scleral icterus or corneal arcus. Mucous membranes were moist. Neck was supple and without jugular venous distension, thyromegaly, or carotid bruits. Carotids were easily palpable bilaterally. There was no adenopathy. Lungs sounds are diminished in the left lung compared to the right and post- bronchoscopy, there was improvement in the breath sounds on the left and there are some scattered rhonchi. Cardiac exam revealed the PMI to be normally situated and sized. The rhythm was regular and no extrasystoles were noted during several minutes of auscultation. The first and second heart sounds were normal and physiologic splitting of the second heart sound was noted. There were no murmurs, rubs, clicks, or gallops. Abdominal exam revealed normal bowel sounds. The abdomen was soft, non-tender, and without masses, organomegaly, or appreciable enlargement of the abdominal aorta. Extremities are mottled, marked diminished breath sounds bilaterally, there are cold and clammy and there is diffuse muscle atrophy. The patient has a right femoral triple-lumen catheter in place. Skin is mottled and lower extremities and there is some degree of cyanosis. Neurologically the patient is unresponsive. Motor and sensory function cannot be assessed. Weak cough and weak gag reflex. No corneal reflex at this point.. Pupils are round 2-3 mm in size. No preferential gaze. No nystagmus. No clonus. Reflexes are diminished in all 4 extremities. Results - Laboratory Findings CBC and BMP: 11/18/21 13:43 11/18/21 13:43 PT/INR, D-dimer PT 11.6 sec (9.0-12.0) 11/18/21 13:43 INR 1.1 (<1.2) 11/18/21 13:43 Abnormal lab findings: Abnormal Labs 11/18/21 11/18/21 11/18/21 13:43 13:43 13:43 WBC 14.3 H RBC 3.64 L RDW 17.2 H Neutrophils # 13.2 H Lymphocytes # 0.5 L APTT 35.8 H Chloride 126 H Carbon Dioxide 8 L* BUN 73 H Creatinine 3.65 H Glucose 248 H AST 108 H ALT 83 H Creatine Kinase Troponin I Total Protein 5.9 L Albumin 2.8 L Urine Appearance Urine Protein Urine WBC Amorphous Sediment Urine Mucus U Marijuana (THC) Screen 11/18/21 11/18/21 11/18/21 13:43 14:16 14:20 WBC RBC RDW Neutrophils # Lymphocytes # APTT Chloride Carbon Dioxide BUN Creatinine Glucose AST ALT Creatine Kinase 235 H Troponin I 0.104 H* Total Protein Albumin Urine Appearance Cloudy H Urine Protein 2+ H Urine WBC 8 H Amorphous Sediment Occasional H Urine Mucus Rare H U Marijuana (THC) Screen Detected H - Diagnostic Findings Chest x-ray: image reviewed Assessment and Plan Plan: 1 acute cardiac arrest. The patient had a cardiac arrest at home and the patient was in asystole at a time of EMS arrival. Resuscitated for a total of 25-40 minutes and the patient was given CPR. The patient was intubated in the emergency department. There was return of spontaneous circulation. Nevertheless, for now, the patient is in shock state. She has already received a total of 3 L of IV fluid and the patient was also started on norepinephrine infusion running at 0.1 mg/kg/m. She is completely comatose and unresponsive. 2 acute unresponsiveness, post cardiac arrest, consider anoxic encephalopathy 3 acute shock/hypotensive currently under investigation. Consider a combination of cardiogenic and hypovolemic shock. There could be also a septic component 4 left lung collapse secondary mucous plug status post bronchoscopic evacuation of left-sided mucous plug with reexpansion of the left lung and the sedation of the oxygenation 5 acute hypoxic respiratory failure secondary to above currently intubated on a mechanical ventilator 6 non-anion gap metabolic acidosis with a serum bicarbonate, given bicarb pushes and currently she will be started on a bicarb infusion 7 acute kidney injury with oligoria secondary to above 8 history of myasthenia gravis 9 history of diabetes mellitus 10 mild leukocytosis secondary to above 11 troponin leak secondary to above 12 atrial fibrillation, chronicity is unknown and the patient's rate is controlled for now Plan Continue ventilator support the necessity ventilator changes were done. I increased the respiratory rate up to 30, but the patient on a PEEP of 10. A follow-up blood gases Will be ordered. The patient was given a total of3 L. The patient will be also started on bicarb infusion. We will use insulin drip if needed for tighter blood sugar control We'll cover the patient with IV Zosyn We'll send the cultures obtained from the bronchioloalveolar lavage of the left lung for microbial analysis Started patient IV Solu Medrol 60 mg every 6 hours Stat echocardiogram to assess LV function Cardiology consultation Neurology consultation nephrology consultation regarding the acute kidney injury May use Diprivan if needed should the patient develop an NURY inhibitor mechanical ventilator. For now she is on no sedation and she is completely unresponsive We will hold on giving any anticoagulation for now. We'll monitor the atrial fibrillation will put the patient on heparin subcu for DVT prophylaxis IV protonic very poor prognosis based on the above. We'll continue to follow. Is critical at this point in time. Time with Patient: Greater than 30
--- NOTE | 2021-11-18 16:57 | P.PCN ---
Date of Procedure: 11/18/21 Preoperative Diagnosis: left lung collapse Postoperative Diagnosis: left lung collapse secondary to mucous plugs Procedure(s) Performed: bronchoscopy, removal of left-sided mucous plugs located in the left mainstem bronchus, bronchial lavage of the left lower lobe Anesthesia: none Surgeon: Harvey Moncada Estimated Blood Loss (ml): 0 Pathology: none sent Condition: critical Disposition: ICU Operative Findings: this procedure was done on the emergency conditions. The procedure was done in the emergency department. The patient had a complete left lung collapse and mucous plugs were suspected. The patient was already intubated on a mechanical ventilator. I placed the patient on a PEEP of 10 and FiO2 of 100%. Following that, I inserted the bronchoscope through the orotracheal tube and I advanced into the left lower lobe. Immediately, and the origin of the left mainstem bronchus, there was a large mucous plug was aspirated without any major difficulties. The mucous plug was extending to the left lower lobe. This was aspirated. The bronchoscope was removed to the left upper lobe and the left upper lobe segments including the lingular segments were visualized without any major difficulties. Bronchus was then moved to the lower lobe and there is segments of the left lower lobe were also inspected. At the completion of the procedure, a total of 60 mL of fluid was infused left lower lobe and sinuses was aspirated and the bronchioloalveolar lavage was completed. Examination of the rectal essentially within normal limits. Bronchoscope was removed. At the completion of the procedure, there was no issues with oxygenation. The patient had a saturation up to 99-100%. The follow-up blood gases is to be done. A chest x-ray is also to follow.
[2021-11-18] MEDS ORDERED: DEXTROSE 5% IN WATER 1,000 ML with SODIUM BICARB (1 MEQ/ML) 150 ML IV SCH (17:00)
[2021-11-18] MEDS: SODIUM CHLORIDE 0.9% 1,000 ML IV SCH (17:30)
--- NOTE | 2021-11-18 17:36 | ED ---
Medical Decision Making - Lab Data Result diagrams: 11/18/21 13:43 11/18/21 13:43 Lab Results 11/18/21 11/18/21 11/18/21 Range/Units 13:43 13:43 13:43 WBC 14.3 H (3.8-10.6) k/uL RBC 3.64 L (3.80-5.40) m/uL Hgb 11.4 (11.4-16.0) gm/dL Hct 35.3 (34.0-46.0) % MCV 96.9 (80.0-100.0) fL MCH 31.2 (25.0-35.0) pg MCHC 32.2 (31.0-37.0) g/dL RDW 17.2 H (11.5-15.5) % Plt Count 169 (150-450) k/uL MPV 9.3 Neutrophils % 93 % Lymphocytes % 4 % Monocytes % 2 % Eosinophils % 1 % Basophils % 0 % Neutrophils # 13.2 H (1.3-7.7) k/uL Lymphocytes # 0.5 L (1.0-4.8) k/uL Monocytes # 0.3 (0-1.0) k/uL Eosinophils # 0.1 (0-0.7) k/uL Basophils # 0.0 (0-0.2) k/uL Hypochromasia Moderate Poikilocytosis Slight Anisocytosis Slight Macrocytosis Slight PT 11.6 (9.0-12.0) sec INR 1.1 (<1.2) APTT 35.8 H (22.0-30.0) sec Sodium 144 (137-145) mmol/L Potassium 4.8 (3.5-5.1) mmol/L Chloride 126 H (98-107) mmol/L Carbon Dioxide 8 L* (22-30) mmol/L Anion Gap 10 mmol/L BUN 73 H (7-17) mg/dL Creatinine 3.65 H (0.52-1.04) mg/dL Est GFR (CKD-EPI)AfAm 10 (>60 ml/min/1.73 sqM) Est GFR (CKD-EPI)NonAf 8 (>60 ml/min/1.73 sqM) Glucose 248 H (74-99) mg/dL Calcium 9.4 (8.4-10.2) mg/dL Total Bilirubin 0.5 (0.2-1.3) mg/dL AST 108 H (14-36) U/L ALT 83 H (4-34) U/L Alkaline Phosphatase 64 (38-126) U/L Creatine Kinase (30-135) U/L Troponin I (0.000-0.034) ng/mL Total Protein 5.9 L (6.3-8.2) g/dL Albumin 2.8 L (3.5-5.0) g/dL Urine Color Urine Appearance (Clear) Urine pH (5.0-8.0) Ur Specific Hope (1.001-1.035) Urine Protein (Negative) Urine Glucose (UA) (Negative) Urine Ketones (Negative) Urine Blood (Negative) Urine Nitrite (Negative) Urine Bilirubin (Negative) Urine Urobilinogen (<2.0) mg/dL Ur Leukocyte Esterase (Negative) Urine RBC (0-5) /hpf Urine WBC (0-5) /hpf Amorphous Sediment (None) /hpf Granular Casts (0) /lpf Urine Mucus (None) /hpf Urine Opiates Screen (NotDetected) Ur Oxycodone Screen (NotDetected) Urine Methadone Screen (NotDetected) Ur Propoxyphene Screen (NotDetected) Ur Barbiturates Screen (NotDetected) U Tricyclic Antidepress (NotDetected) Ur Phencyclidine Scrn (NotDetected) Ur Amphetamines Screen (NotDetected) U Methamphetamines Scrn (NotDetected) U Benzodiazepines Scrn (NotDetected) Urine Cocaine Screen (NotDetected) U Marijuana (THC) Screen (NotDetected) Serum Alcohol <10 mg/dL 11/18/21 11/18/21 11/18/21 Range/Units 13:43 14:16 14:20 WBC (3.8-10.6) k/uL RBC (3.80-5.40) m/uL Hgb (11.4-16.0) gm/dL Hct (34.0-46.0) % MCV (80.0-100.0) fL MCH (25.0-35.0) pg MCHC (31.0-37.0) g/dL RDW (11.5-15.5) % Plt Count (150-450) k/uL MPV Neutrophils % % Lymphocytes % % Monocytes % % Eosinophils % % Basophils % % Neutrophils # (1.3-7.7) k/uL Lymphocytes # (1.0-4.8) k/uL Monocytes # (0-1.0) k/uL Eosinophils # (0-0.7) k/uL Basophils # (0-0.2) k/uL Hypochromasia Poikilocytosis Anisocytosis Macrocytosis PT (9.0-12.0) sec INR (<1.2) APTT (22.0-30.0) sec Sodium (137-145) mmol/L Potassium (3.5-5.1) mmol/L Chloride (98-107) mmol/L Carbon Dioxide (22-30) mmol/L Anion Gap mmol/L BUN (7-17) mg/dL Creatinine (0.52-1.04) mg/dL Est GFR (CKD-EPI)AfAm (>60 ml/min/1.73 sqM) Est GFR (CKD-EPI)NonAf (>60 ml/min/1.73 sqM) Glucose (74-99) mg/dL Calcium (8.4-10.2) mg/dL Total Bilirubin (0.2-1.3) mg/dL AST (14-36) U/L ALT (4-34) U/L Alkaline Phosphatase (38-126) U/L Creatine Kinase 235 H (30-135) U/L Troponin I 0.104 H* (0.000-0.034) ng/mL Total Protein (6.3-8.2) g/dL Albumin (3.5-5.0) g/dL Urine Color Yellow Urine Appearance Cloudy H (Clear) Urine pH 6.0 (5.0-8.0) Ur Specific Hope 1.019 (1.001-1.035) Urine Protein 2+ H (Negative) Urine Glucose (UA) Negative (Negative) Urine Ketones Negative (Negative) Urine Blood Negative (Negative) Urine Nitrite Negative (Negative) Urine Bilirubin Negative (Negative) Urine Urobilinogen <2.0 (<2.0) mg/dL Ur Leukocyte Esterase Negative (Negative) Urine RBC 2 (0-5) /hpf Urine WBC 8 H (0-5) /hpf Amorphous Sediment Occasional H (None) /hpf Granular Casts 3 (0) /lpf Urine Mucus Rare H (None) /hpf Urine Opiates Screen Not Detected (NotDetected) Ur Oxycodone Screen Not Detected (NotDetected) Urine Methadone Screen Not Detected (NotDetected) Ur Propoxyphene Screen Not Detected (NotDetected) Ur Barbiturates Screen Not Detected (NotDetected) U Tricyclic Antidepress Not Detected (NotDetected) Ur Phencyclidine Scrn Not Detected (NotDetected) Ur Amphetamines Screen Not Detected (NotDetected) U Methamphetamines Scrn Not Detected (NotDetected) U Benzodiazepines Scrn Not Detected (NotDetected) Urine Cocaine Screen Not Detected (NotDetected) U Marijuana (THC) Screen Detected H (NotDetected) Serum Alcohol mg/dL Disposition Clinical Impression: Altered mental status, Hypotension, Respiratory failure, Shock Disposition: ADMITTED IP TO THIS [facility] Condition: Critical Is patient prescribed a controlled substance at d/c from ED?: No Procedures - Sepsis Sepsis Focused Exam #1 Time Sepsis Criteria Met: 16:00 Sepsis Focused Exam #2 Time Sepsis Criteria Met: 16:00 Sepsis Focused Exam Date: 11/18/21 Sepsis Focused Exam Time: 17:35 Sepsis Focused Exam Complete: Yes Vital Signs & RN Notes Reviewed: Yes Capillary Refill: < 2 Seconds: Fingers, Toes Peripheral Pulses: Weak: Radial (R), Radial (L) Skin Color: Normal for Patient Respiratory Exam: rales Cardiovascular Exam: regular rate, normal rhythm
--- NOTE | 2021-11-18 17:59 | XR ---
EXAMINATION TYPE: XR chest 1V portable DATE OF EXAM: 11/18/2021 COMPARISON: Today HISTORY: Check tube placement TECHNIQUE: FINDINGS: Endotracheal tube is 2 cm from the blaine. There is nasogastric tube and the tip is not wel l seen. Tip is probably in the lower esophagus at the T11 level. The lungs are clear of consolidation . There are no hilar masses. There is a 2 cm rounded infiltrate in the right midlung. There is signif icant improved aeration of the left lung compared to exam 2 hours ago. IMPRESSION: Significant improved aeration of the left lung. Tip of the NG tube not well seen.
[2021-11-18 19:07] LABS: ABG HCO3 9 mmol/L (21-25); ABG PH 6.81 (7.35-7.45)
[2021-11-18] MEDS: methylPREDNISolone SOD SUCCI 125 MG/2 ML VIAL IV SCH (19:33)
[2021-11-18] MEDS ORDERED: CHLORHEXIDINE GLUCONATE 15 ML CUP MUCOUS MEM SCH (21:00)
[2021-11-18] MEDS ORDERED: SODIUM CHLORIDE 0.9% 1,000 ML IV STA (21:39)
[2021-11-19] MEDS: PIPERACILLIN-TAZOBACTAM 3.375 GM in SODIUM CHLORIDE 0.9% 100 ML IVPB SCH ×2 (02:12→08:36)
[2021-11-19] MEDS: methylPREDNISolone SOD SUCCI 125 MG/2 ML VIAL IV SCH ×2 (02:12→06:34)
[2021-11-19] MEDS: SODIUM CHLORIDE 0.9% 1,000 ML IV SCH ×2 (02:13→08:25)
[2021-11-19] MEDS: NOREPINEPHRINE 32 MG in SODIUM CHLORIDE 0.9% 218 ML IV SCH ×2 (02:31→08:47)
[2021-11-19 08:41] VITALS: RESP 30
--- NOTE | 2021-11-19 08:55 | ECHOF ---
Referral Reason:shock MEASUREMENTS -------- HEIGHT: 154.9 cm WEIGHT: 53.5 kg BP: IVSd: 1.6 cm (0.6 - 1.1) LVIDd: 1.9 cm (3.9 - 5.3) LVPWd: 1.9 cm (0.6 - 1.1) IVSs: 1.8 cm LVIDs: 0.8 cm LVPWs: 1.4 cm MV E Luis Miguel: 0.69 m/s MV DecT: 201 ms MV A Luis Miguel: 0.33 m/s MV E/A Ratio: 2.09 RAP: 5.00 mmHg RVSP: 16.42 mmHg FINDINGS -------- This was a technically difficult study with suboptimal views. The cavity size is decreased. There is severe concentric left ventricular hypertrophy. Overall le ft ventricular systolic function is normal with, an EF between 65 - 70 %. LVOT Obstruction with a p eak gradient of 105 mmHg. Finding concerning for HOCM The right ventricle is normal in size. The left atrial size is normal. The right atrial size is normal. 5.0mg of Lumason was utilized for enhancement of images The aortic valve is trileaflet and appears structurally normal. The mitral valve is normal. There is trace mitral regurgitation. The tricuspid valve appears structurally normal. Trace tricuspid regurgitation present. Right lane tricular systolic pressure is normal at < 35 mmHg. There is no pulmonic regurgitation present. The aortic root size is normal. There is no pericardial effusion. CONCLUSIONS -------- 1. The cavity size is decreased. 2. There is severe concentric left ventricular hypertrophy. 3. Overall left ventricular systolic function is normal with, an EF between 65 - 70 %. 4. LVOT Obstruction with a peak gradient of 105 mmHg 5. Finding concerning for HOCM 6. There is trace mitral regurgitation. 7. Trace tricuspid regurgitation present. 8. There is no pericardial effusion. SECOND VP HR ASSESSMENT: Bibiana Mera RDCS
[2021-11-19] MEDS ORDERED: DEXAMETHASONE SOD PHOSPHATE 10 MG/ML 1 ML VIAL IVP SCH (09:00)
[2021-11-19] MEDS ORDERED: PANTOPRAZOLE 40 MG/10 ML VIAL IV SCH (09:00)
--- NOTE | 2021-11-19 09:00 | P.NPCON ---
History of Present Illness - Reason for Consult acute renal failure - History of Present Illness Reason for consultation: Acute kidney injury History of present illness: Patient is a 66-year-old female seen in consultation for acute kidney injury. Patient was brought to the hospital after she was found unresponsive by the EMS. She had been short of breath prior to admission. Patient was found by the EMS in asystole and CPR was performed for half an hour. She received 3 doses of epinephrine. She was intubated in the ER. She was noted to have left lung collapse and underwent bronchoscopy with removal of left-sided mucous plugs. She was noted to be acidotic with a bicarb level of 8 and a pH of 6.81. Creatinine was 3.65 on admission. Unknown as to what her baseline function is. She does have history of diabetes. She was also on lisinopril outpatient. Patient has history of myasthenia gravis. Patient received multiple normal saline boluses. She is currently maintained on normal saline as well as bicarbonate drip. She is also on Levophed. She is now DO NOT RESUSCITATE. Vital signs - hypotensive on vasopressor support. HEENT: Intubated. LUNGS: Breath sounds decreased. HEART: Rate and Rhythm are regular. ABDOMEN: No distention. EXTREMITITES: No edema. Past Medical History Past Medical History: No Reported History Additional Past Medical History / Comment(s): no family, pt unresponsive. patient has history of myasthenia gravis, the patient also has history of diabetes mellitus History of Any Multi-Drug Resistant Organisms: None Reported Past Surgical History: No Surgical Hx Reported Additional Past Surgical History / Comment(s): no family. pt unresponive. Past Psychological History: No Psychological Hx Reported Smoking Status: Never smoker Past Alcohol Use History: None Reported Past Drug Use History: None Reported Medications and Allergies Home Medications Medication Instructions Recorded Confirmed Type Ergocalciferol [Vitamin D2 (1250 1,250 mcg PO Q7D 11/18/21 11/18/21 History Mcg = 46513 Iu)] Metoprolol Succinate (ER) [Toprol 100 mg PO DAILY 11/18/21 11/18/21 History Xl] Omeprazole 40 mg PO DAILY 11/18/21 11/18/21 History Pyridostigmine [Mestinon] 60 mg PO QID 11/18/21 11/18/21 History lisinopriL [Zestril] 20 mg PO DAILY 11/18/21 11/18/21 History metFORMIN HCL [Glucophage] 1,000 mg PO DAILY 11/18/21 11/18/21 History predniSONE [Deltasone] 60 mg PO BID 11/18/21 11/18/21 History Allergies Allergy/AdvReac Type Severity Reaction Status Date / Time No Known Allergies Allergy Unverified 11/18/21 16:26 Physical Exam Vitals: Vital Signs Temp Pulse Pulse Resp BP Pulse Ox 11/19/21 08:39 97.5 F L 62 30 H 76/34 97 11/19/21 07:26 96.4 F L 65 20 135/36 100 11/19/21 06:45 66 30 H 94/41 100 11/19/21 06:00 67 24 112/55 100 11/19/21 05:00 67 30 H 89/65 100 11/19/21 04:00 67 20 74/28 100 11/19/21 03:00 67 16 89/29 100 11/19/21 02:13 76 21 83/68 100 11/19/21 01:30 77 30 H 87/69 100 11/19/21 00:45 82 20 79/63 99 11/19/21 00:00 62 18 44/33 99 11/18/21 23:00 64 20 78/62 99 11/18/21 22:19 67 18 86/60 100 11/18/21 21:19 73 20 91/67 99 11/18/21 20:28 72 86/47 98 11/18/21 20:21 74 11/18/21 20:07 81 30 H 11/18/21 20:01 71 75/53 100 11/18/21 16:52 70 18 98/68 98 11/18/21 16:49 74 18 100/86 100 11/18/21 16:27 75 18 93/76 90 L 11/18/21 15:55 62 18 91/70 79 L 11/18/21 15:45 59 L 18 103/75 81 L 11/18/21 15:27 58 L 18 90/63 11/18/21 15:23 58 L 16 101/74 84 L 11/18/21 15:16 57 L 18 84/56 11/18/21 15:05 57 L 18 67/44 97 11/18/21 14:51 59 L 16 60/36 99 11/18/21 13:51 73 18 69/46 99 11/18/21 13:45 74 16 86/48 98 11/18/21 13:40 74 16 57/34 90 L 11/18/21 13:36 68 4 L 48/29 50 L 11/18/21 13:30 97.0 F L 62 4 L Intake and Output 11/18/21 11/19/21 11/19/21 22:59 06:59 14:59 Intake Total 50 235.653 Balance 50 235.653 Intake: Intake, IV Titration 235.653 Amount Norepinephrine 32 mg In 235.653 Sodium Chloride 0.9% 218 ml @ 0.05 MCG/KG/MIN 1. 254 mls/hr IV .Q24H [facility] Rx#:[id number] Results - Lab Results Most recent lab results ABG pH 6.81 (7.35-7.45) L* 11/18/21 15:02 ABG pCO2 56 mmHg (35-45) H 11/18/21 15:02 ABG pO2 274 mmHg (83-108) H 11/18/21 15:02 ABG HCO3 9 mmol/L (21-25) L* 11/18/21 15:02 ABG O2 Saturation 98.9 % (94-97) H 11/18/21 15:02 Calcium 9.4 mg/dL (8.4-10.2) 11/18/21 13:43 11/18/21 13:43 11/18/21 13:43 Assessment and Plan Plan: Assessment: 1. Acute kidney injury secondary to ATN secondary to cardiac arrest. Creatinine 3.65 on admission. Unknown baseline renal function. 2. Metabolic acidosis secondary to acute kidney injury and lactic acidosis. She was also on metformin outpatient. Also component of lactic acidosis. 3. Status post cardiac arrest. CPR performed for over 30 minutes. 4. Acute hypoxic and hypercapnic respiratory failure. 5. Anoxic brain injury. Plan: Maintain bicarb drip. Also on normal saline. Prognosis guarded. Plan for comfort measures. Thank you for the consultation. I will continue to follow the patient with you during her hospital stay.
--- NOTE | 2021-11-19 09:02 | XR ---
EXAMINATION TYPE: XR chest 1V portable DATE OF EXAM: 11/19/2021 Comparison: 11/18/2021 Clinical History: 66-year-old female Tube placement Findings: AP tube is satisfactory. NG tube tip at the level of the GE junction. This can be further advanced by 9 cm into the stomach. Heart normal size. Mild patchy interstitial changes in the right upper lobe a nd left perihilar region are unchanged. No pleural effusion. Impression: 1. NG tube side hole at the GE junction. Advance by 9 cm so that the sidehole enters the stomach. 2. Patchy interstitial infiltrates, left greater than right are unchanged.
--- NOTE | 2021-11-19 10:09 | CONS ---
CONSULTATION Edwina is a 66-year-old lady with history of hypertension, [id number] diabetes and some form of muscular dystrophy who came to [facility], having had progressively worsening lethargy and drowsiness, and when EMS was called, they found that she was in asystole, and CPR was initiated at that time. She had a CPR of about 25 to 40 minutes, subsequently was intubated and placed on vent and brought to the emergency room. I am seeing her for the first time this morning. She is intubated on vent, profoundly hypotensive in spite of being on maximum doses of Levophed. Patient also received IV fluids without any response, and she underwent a bronchoscopy with removal of a mucus plug. She had mild troponin elevation. COVID test is negative. EKG showed sinus rhythm with right bundle branch block. She had an echocardiogram that showed severe concentric left ventricular hypertrophy with evidence of left ventricular outflow tract obstruction suggestive of hypertrophic obstructive cardiomyopathy. At the time of my evaluation, patient is NO CODE, and if she is to have any further cardiac arrest, she is not to be resuscitated. Her BUN was elevated at 73 and creatinine was 3.6. The mild troponin elevation is probably related to that. Past medical history is significant for myasthenia gravis, hypertension, diabetes. Medications at home included Mestinon, prednisone, Glucophage, Zestril, omeprazole, Toprol-XL and vitamin D. NO KNOWN DRUG ALLERGIES. Family history is negative for premature coronary artery disease. SOCIAL HISTORY AND REVIEW OF SYSTEMS: I am unable to obtain from the patient, who is intubated on vent. On exam, patient's temperature is 97.5, respiratory rate is 30, heart rate is 60, blood pressure is 76/30. She is mechanically ventilated. There is no jugular venous distention. Chest exam reveals diminished air entry bilaterally. Heart exam reveals first and second heart sounds and ejection systolic murmur in the aortic area. Abdomen is soft. Examination of extremities did not reveal any edema. Peripheral pulses are felt. Labs show that the potassium is 4.8. BUN is 73, creatinine is 3.6, AST and ALT are elevated. Troponin is mildly elevated. Lactic acid is high. Hemoglobin is 11.4, platelet count is 169. ASSESSMENT: 1. Status post cardiorespiratory arrest. 2. Elevated troponin. 3. Hypertrophic obstructive cardiomyopathy. PLAN: Continue with fluid resuscitation, pressors. The elevated troponin is probably related to the renal failure. Her prognosis is guarded. MMODL / IJN: [id number] /
--- NOTE | 2021-11-19 10:44 | P.PN ---
Subjective Progress Note Date: 11/19/21 11/17/2021, the patient is still completely unresponsive to deep painful stimulation or verbal stimulation. She is riding the mechanical ventilator. She's been off sedation since yesterday. No seizure activity has been noted. Nevertheless, the patient remains comatose and she is not showing any signs of recovery. Pupils are 2 mm in size and they're sluggishly reactive to light. She has no corneal or gag reflex. No motor function has been noted on today's evaluation. The patient has been essentially riding the mechanical ventilator at a rate of 30 and a ventilator currently set at a assist-control of 30 with an FiO2 of 100% and a PEEP of 10 and tidal volume of 450. The patient is hemodynam ically unstable. The patient remains on high doses of pressors and norepinephrine is running at 0.1 mg/kg per minute. The patient remains on a bicarbonate infusion which is running at 150 mL an hour. Urine output is absent and the patient has no urine output for now. The most recent blood pressure is 104/84. Heart rate is 92 and the rhythm is sinus. The chest x-ray from today is showing some patchy bilateral pulmonary infiltrates. Left lung is essentially expanded. NG tube needs to be advanced further. Noted the patient underwent a bronchoscopy and evacuation of a mucous plug yesterday. Since then, the patient was also covered with antibiotics and the patient is currently on a combination of Zosyn and Levaquin. She remains on IV Solu-Medrol. She remains on bronchodilators around the clock. COVID 19 testing came back negative. CAT scan of the brain was negative. EKG was done today. Nephrology consult is in progress, neurology consult is in progress. Meanwhile, the echocardiogram showed a preserved LV function with an ejection fraction of 67-70%. There was finding concerning for hypertrophic obstructive cardiomyopathy as the patient had significant thickening of the septum. There was evidence of severe concentric left ventricular hypertrophy and the left ventricular outflow tract obstruction was suspected.. She was hypothermic earlier. Pressure was as low as 96.4 Objective - Vital Signs Vital signs: Vital Signs Temp 98.4 F 11/19/21 09:55 Pulse 110 H 11/19/21 09:55 Resp 30 H 11/19/21 09:55 BP 120/43 11/19/21 09:55 Pulse Ox 96 11/19/21 09:55 Intake & Output 11/18/21 11/19/21 11/19/21 18:59 06:59 18:59 Intake Total 14.347 235.653 157.224 Balance 14.347 235.653 157.224 Weight 53.524 kg Intake: Intake, IV Titration 14.347 235.653 157.224 Amount Norepinephrine 32 mg In 14.347 235.653 157.224 Sodium Chloride 0.9% 218 ml @ 0.05 MCG/KG/MIN 1. 254 mls/hr IV .Q24H [facility] Rx#:[id number] - Exam Gen. appearance the patient is completely unresponsive to any verbal or painful stimulation. she is running a mechanical ventilator. She has not initiating or triggering any breathing. No agitation. No seizure activity. she has orotracheal and orotracheal tube an orogastric tube are both in the mother in place. Head exam was generally normal. There was no scleral icterus or corneal arcus. Mucous membranes were moist. Neck was supple and without jugular venous distension, thyromegaly, or carotid bruits. Carotids were easily palpable bilaterally. There was no adenopathy. Lungs sounds are diminished in the left lung compared to the right and post- bronchoscopy, there was improvement in the breath sounds on the left and there are some scattered rhonchi. Cardiac exam revealed the PMI to be normally situated and sized. The rhythm was regular and no extrasystoles were noted during several minutes of auscultation. The first and second heart sounds were normal and physiologic splitting of the second heart sound was noted. There were no murmurs, rubs, clicks, or gallops. Abdominal exam revealed normal bowel sounds. The abdomen was soft, non-tender, and without masses, organomegaly, or appreciable enlargement of the abdominal aorta. Extremities are mottled, marked diminished breath sounds bilaterally, there are cold and clammy and there is diffuse muscle atrophy. The patient has a right femoral triple-lumen catheter in place. Skin is mottled and lower extremities and there is some degree of cyanosis. Neurologically the patient is unresponsive. Motor and sensory function cannot be assessed. Weak cough and weak gag reflex. No corneal reflex at this point.. Pupils are round 2-3 mm in size. No preferential gaze. No nystagmus. No clonus. Reflexes are diminished in all 4 extremities. - Labs CBC & Chem 7: 11/18/21 13:43 11/18/21 13:43 Labs: Abnormal Lab Results - Last 24 Hours (Table) 11/18/21 11/18/21 11/18/21 Range/Units 13:43 13:43 13:43 WBC 14.3 H (3.8-10.6) k/uL RBC 3.64 L (3.80-5.40) m/uL RDW 17.2 H (11.5-15.5) % Neutrophils # 13.2 H (1.3-7.7) k/uL Lymphocytes # 0.5 L (1.0-4.8) k/uL APTT 35.8 H (22.0-30.0) sec ABG pH (7.35-7.45) ABG pCO2 (35-45) mmHg ABG pO2 (83-108) mmHg ABG HCO3 (21-25) mmol/L ABG Total CO2 (19-24) mmol/L ABG O2 Saturation (94-97) % Chloride 126 H (98-107) mmol/L Carbon Dioxide 8 L* (22-30) mmol/L BUN 73 H (7-17) mg/dL Creatinine 3.65 H (0.52-1.04) mg/dL Glucose 248 H (74-99) mg/dL Plasma Lactic Acid Dre (0.7-2.0) mmol/L AST 108 H (14-36) U/L ALT 83 H (4-34) U/L Creatine Kinase (30-135) U/L Troponin I (0.000-0.034) ng/mL Total Protein 5.9 L (6.3-8.2) g/dL Albumin 2.8 L (3.5-5.0) g/dL Urine Appearance (Clear) Urine Protein (Negative) Urine WBC (0-5) /hpf Amorphous Sediment (None) /hpf Urine Mucus (None) /hpf U Marijuana (THC) Screen (NotDetected) 11/18/21 11/18/21 11/18/21 Range/Units 13:43 14:16 14:20 WBC (3.8-10.6) k/uL RBC (3.80-5.40) m/uL RDW (11.5-15.5) % Neutrophils # (1.3-7.7) k/uL Lymphocytes # (1.0-4.8) k/uL APTT (22.0-30.0) sec ABG pH (7.35-7.45) ABG pCO2 (35-45) mmHg ABG pO2 (83-108) mmHg ABG HCO3 (21-25) mmol/L ABG Total CO2 (19-24) mmol/L ABG O2 Saturation (94-97) % Chloride (98-107) mmol/L Carbon Dioxide (22-30) mmol/L BUN (7-17) mg/dL Creatinine (0.52-1.04) mg/dL Glucose (74-99) mg/dL Plasma Lactic Acid Dre (0.7-2.0) mmol/L AST (14-36) U/L ALT (4-34) U/L Creatine Kinase 235 H (30-135) U/L Troponin I 0.104 H* (0.000-0.034) ng/mL Total Protein (6.3-8.2) g/dL Albumin (3.5-5.0) g/dL Urine Appearance Cloudy H (Clear) Urine Protein 2+ H (Negative) Urine WBC 8 H (0-5) /hpf Amorphous Sediment Occasional H (None) /hpf Urine Mucus Rare H (None) /hpf U Marijuana (THC) Screen Detected H (NotDetected) 11/18/21 11/18/21 11/18/21 Range/Units 15:02 17:00 20:50 WBC (3.8-10.6) k/uL RBC (3.80-5.40) m/uL RDW (11.5-15.5) % Neutrophils # (1.3-7.7) k/uL Lymphocytes # (1.0-4.8) k/uL APTT (22.0-30.0) sec ABG pH 6.81 L* (7.35-7.45) ABG pCO2 56 H (35-45) mmHg ABG pO2 274 H (83-108) mmHg ABG HCO3 9 L* (21-25) mmol/L ABG Total CO2 11 L (19-24) mmol/L ABG O2 Saturation 98.9 H (94-97) % Chloride (98-107) mmol/L Carbon Dioxide (22-30) mmol/L BUN (7-17) mg/dL Creatinine (0.52-1.04) mg/dL Glucose (74-99) mg/dL Plasma Lactic Acid Dre 10.0 H* 9.8 H* (0.7-2.0) mmol/L AST (14-36) U/L ALT (4-34) U/L Creatine Kinase (30-135) U/L Troponin I (0.000-0.034) ng/mL Total Protein (6.3-8.2) g/dL Albumin (3.5-5.0) g/dL Urine Appearance (Clear) Urine Protein (Negative) Urine WBC (0-5) /hpf Amorphous Sediment (None) /hpf Urine Mucus (None) /hpf U Marijuana (THC) Screen (NotDetected) 11/18/21 Range/Units 23:45 WBC (3.8-10.6) k/uL RBC (3.80-5.40) m/uL RDW (11.5-15.5) % Neutrophils # (1.3-7.7) k/uL Lymphocytes # (1.0-4.8) k/uL APTT (22.0-30.0) sec ABG pH (7.35-7.45) ABG pCO2 (35-45) mmHg ABG pO2 (83-108) mmHg ABG HCO3 (21-25) mmol/L ABG Total CO2 (19-24) mmol/L ABG O2 Saturation (94-97) % Chloride (98-107) mmol/L Carbon Dioxide (22-30) mmol/L BUN (7-17) mg/dL Creatinine (0.52-1.04) mg/dL Glucose (74-99) mg/dL Plasma Lactic Acid Dre 7.4 H* (0.7-2.0) mmol/L AST (14-36) U/L ALT (4-34) U/L Creatine Kinase (30-135) U/L Troponin I (0.000-0.034) ng/mL Total Protein (6.3-8.2) g/dL Albumin (3.5-5.0) g/dL Urine Appearance (Clear) Urine Protein (Negative) Urine WBC (0-5) /hpf Amorphous Sediment (None) /hpf Urine Mucus (None) /hpf U Marijuana (THC) Screen (NotDetected) Microbiology - Last 24 Hours (Table) 11/18/21 13:44 Gram Stain - Preliminary Sputum Sputum Culture - Preliminary 11/18/21 16:37 Gram Stain - Preliminary Bronchial Washings - Left Bronchial Washings Culture - Preliminary 11/18/21 16:37 Fungal Culture - Preliminary Bronchial Washings - Left 11/18/21 16:37 Acid Fast Bacilli Culture - Preliminary Bronchial Washings - Left Assessment and Plan Plan: 1 acute cardiac arrest. The patient had a cardiac arrest at home and the patient was in asystole at a time of EMS arrival. Resuscitated for a total of 25-40 minutes and the patient was given CPR. The patient was intubated in the emergency department. There was return of spontaneous circulation. Nevertheless, for now, the patient is in shock state. She has already received a total of 3 L of IV fluid and the patient was also started on norepinephrine infusion running at 0.1 mg/kg/m. She is completely comatose and unresponsive. The patient remains deeply comatose. The patient's neurologic status is unchanged since yesterday. The patient remains in a shock state requiring high doses of pressors. She was severely acidotic with lactic acid level of 9.0 at a time of admission with subsequent drop down to 7.4 with fluid resuscitation., 2 acute unresponsiveness, post cardiac arrest, consider anoxic encephalopathy.The patient has been off sedation and the patient's has remained, toes over the past 12 hours since arrival to the ED 3 acute shock/hypotensive currently under investigation. Consider a combination of cardiogenic and hypovolemic shock. There could be also a septic component, and echocardiogram showing preserved LV function. There is severe concentric LVH and there is a concern for hypertrophic obstructive cardiomyopathy in this patient. 4 left lung collapse secondary mucous plug status post bronchoscopic evacuation of left-sided mucous plug with reexpansion of the left lung and the sedation of the oxygenation 5 acute hypoxic respiratory failure secondary to above currently intubated on a mechanical ventilator, and the patient has patchy bibasilar pulmonary infiltrates concerning for pneumonia and the patient is currently on IV Zosyn. 6 non-anion gap metabolic acidosis with a serum bicarbonate, given bicarb pushes and currently she will be started on a bicarb infusion 7 acute kidney injury with oligoria secondary to above 8 history of myasthenia gravis 9 history of diabetes mellitus 10 mild leukocytosis secondary to above 11 troponin leak secondary to above 12 atrial fibrillation, chronicity is unknown , now in sinus Plan Continue ventilator support Obtain a follow-up blood gases and will do the necessary ventilator changes continue bicarb infusion Check a lactic acid level Echocardiogram was noted Continue high-dose pressors with norepinephrine and add vasopressin for hemodynamic support at physiologic dose Continue current antibiotic coverage Awaiting final cultures EEG was done Awaiting urology and nephrology consultation and cardiology consultation All of the levels need to be repeated this morning including lactic acid levels and a blood gas To be transferred to the intensive care unit. DO NOT RESUSCITATE CODE STATUS. Signs of significant anoxic encephalopathy present and the patient is completely unresponsive at this point in time. very poor prognosis based on the above. We'll continue to follow. Is critical at this point in time. Critical care time >30 min Time with Patient: Greater than 30
[2021-11-19 10:58] VITALS: BP 104/51; PULSE 73; TEMP 37
--- NOTE | 2021-11-19 11:19 | ED ---
Medical Decision Making - Medical Decision Making Was notified by nursing staff that patient is pulseless. Patient is DO NOT RESUSCITATE. I was contacted to confirm patient's . Patient is pulseless. On neck oh, there is no cardiac activity. Time of was called for at 1104. Primary team will be notified by nursing staff. - Lab Data Result diagrams: 11/18/21 13:43 11/18/21 13:43 Lab Results 11/18/21 11/18/21 11/18/21 Range/Units 13:43 13:43 13:43 WBC 14.3 H (3.8-10.6) k/uL RBC 3.64 L (3.80-5.40) m/uL Hgb 11.4 (11.4-16.0) gm/dL Hct 35.3 (34.0-46.0) % MCV 96.9 (80.0-100.0) fL MCH 31.2 (25.0-35.0) pg MCHC 32.2 (31.0-37.0) g/dL RDW 17.2 H (11.5-15.5) % Plt Count 169 (150-450) k/uL MPV 9.3 Neutrophils % 93 % Lymphocytes % 4 % Monocytes % 2 % Eosinophils % 1 % Basophils % 0 % Neutrophils # 13.2 H (1.3-7.7) k/uL Lymphocytes # 0.5 L (1.0-4.8) k/uL Monocytes # 0.3 (0-1.0) k/uL Eosinophils # 0.1 (0-0.7) k/uL Basophils # 0.0 (0-0.2) k/uL Hypochromasia Moderate Poikilocytosis Slight Anisocytosis Slight Macrocytosis Slight PT 11.6 (9.0-12.0) sec INR 1.1 (<1.2) APTT 35.8 H (22.0-30.0) sec Sample Site ABG pH (7.35-7.45) ABG pCO2 (35-45) mmHg ABG pO2 (83-108) mmHg ABG HCO3 (21-25) mmol/L ABG Total CO2 (19-24) mmol/L ABG O2 Saturation (94-97) % ABG Base Excess mmol/L Kofi Test FiO2 % Sodium 144 (137-145) mmol/L Potassium 4.8 (3.5-5.1) mmol/L Chloride 126 H (98-107) mmol/L Carbon Dioxide 8 L* (22-30) mmol/L Anion Gap 10 mmol/L BUN 73 H (7-17) mg/dL Creatinine 3.65 H (0.52-1.04) mg/dL Est GFR (CKD-EPI)AfAm 10 (>60 ml/min/1.73 sqM) Est GFR (CKD-EPI)NonAf 8 (>60 ml/min/1.73 sqM) Glucose 248 H (74-99) mg/dL Plasma Lactic Acid Dre (0.7-2.0) mmol/L Calcium 9.4 (8.4-10.2) mg/dL Total Bilirubin 0.5 (0.2-1.3) mg/dL AST 108 H (14-36) U/L ALT 83 H (4-34) U/L Alkaline Phosphatase 64 (38-126) U/L Creatine Kinase (30-135) U/L Troponin I (0.000-0.034) ng/mL Total Protein 5.9 L (6.3-8.2) g/dL Albumin 2.8 L (3.5-5.0) g/dL Urine Color Urine Appearance (Clear) Urine pH (5.0-8.0) Ur Specific [place] (1.001-1.035) Urine Protein (Negative) Urine Glucose (UA) (Negative) Urine Ketones (Negative) Urine Blood (Negative) Urine Nitrite (Negative) Urine Bilirubin (Negative) Urine Urobilinogen (<2.0) mg/dL Ur Leukocyte Esterase (Negative) Urine RBC (0-5) /hpf Urine WBC (0-5) /hpf Amorphous Sediment (None) /hpf Granular Casts (0) /lpf Urine Mucus (None) /hpf Urine Opiates Screen (NotDetected) Ur Oxycodone Screen (NotDetected) Urine Methadone Screen (NotDetected) Ur Propoxyphene Screen (NotDetected) Ur Barbiturates Screen (NotDetected) U Tricyclic Antidepress (NotDetected) Ur Phencyclidine Scrn (NotDetected) Ur Amphetamines Screen (NotDetected) U Methamphetamines Scrn (NotDetected) U Benzodiazepines Scrn (NotDetected) Urine Cocaine Screen (NotDetected) U Marijuana (THC) Screen (NotDetected) Serum Alcohol <10 mg/dL 11/18/21 11/18/21 11/18/21 Range/Units 13:43 14:16 14:20 WBC (3.8-10.6) k/uL RBC (3.80-5.40) m/uL Hgb (11.4-16.0) gm/dL Hct (34.0-46.0) % MCV (80.0-100.0) fL MCH (25.0-35.0) pg MCHC (31.0-37.0) g/dL RDW (11.5-15.5) % Plt Count (150-450) k/uL MPV Neutrophils % % Lymphocytes % % Monocytes % % Eosinophils % % Basophils % % Neutrophils # (1.3-7.7) k/uL Lymphocytes # (1.0-4.8) k/uL Monocytes # (0-1.0) k/uL Eosinophils # (0-0.7) k/uL Basophils # (0-0.2) k/uL Hypochromasia Poikilocytosis Anisocytosis Macrocytosis PT (9.0-12.0) sec INR (<1.2) APTT (22.0-30.0) sec Sample Site ABG pH (7.35-7.45) ABG pCO2 (35-45) mmHg ABG pO2 (83-108) mmHg ABG HCO3 (21-25) mmol/L ABG Total CO2 (19-24) mmol/L ABG O2 Saturation (94-97) % ABG Base Excess mmol/L Kofi Test FiO2 % Sodium (137-145) mmol/L Potassium (3.5-5.1) mmol/L Chloride (98-107) mmol/L Carbon Dioxide (22-30) mmol/L Anion Gap mmol/L BUN (7-17) mg/dL Creatinine (0.52-1.04) mg/dL Est GFR (CKD-EPI)AfAm (>60 ml/min/1.73 sqM) Est GFR (CKD-EPI)NonAf (>60 ml/min/1.73 sqM) Glucose (74-99) mg/dL Plasma Lactic Acid Dre (0.7-2.0) mmol/L Calcium (8.4-10.2) mg/dL Total Bilirubin (0.2-1.3) mg/dL AST (14-36) U/L ALT (4-34) U/L Alkaline Phosphatase (38-126) U/L Creatine Kinase 235 H (30-135) U/L Troponin I 0.104 H* (0.000-0.034) ng/mL Total Protein (6.3-8.2) g/dL Albumin (3.5-5.0) g/dL Urine Color Yellow Urine Appearance Cloudy H (Clear) Urine pH 6.0 (5.0-8.0) Ur Specific [place] 1.019 (1.001-1.035) Urine Protein 2+ H (Negative) Urine Glucose (UA) Negative (Negative) Urine Ketones Negative (Negative) Urine Blood Negative (Negative) Urine Nitrite Negative (Negative) Urine Bilirubin Negative (Negative) Urine Urobilinogen <2.0 (<2.0) mg/dL Ur Leukocyte Esterase Negative (Negative) Urine RBC 2 (0-5) /hpf Urine WBC 8 H (0-5) /hpf Amorphous Sediment Occasional H (None) /hpf Granular Casts 3 (0) /lpf Urine Mucus Rare H (None) /hpf Urine Opiates Screen Not Detected (NotDetected) Ur Oxycodone Screen Not Detected (NotDetected) Urine Methadone Screen Not Detected (NotDetected) Ur Propoxyphene Screen Not Detected (NotDetected) Ur Barbiturates Screen Not Detected (NotDetected) U Tricyclic Antidepress Not Detected (NotDetected) Ur Phencyclidine Scrn Not Detected (NotDetected) Ur Amphetamines Screen Not Detected (NotDetected) U Methamphetamines Scrn Not Detected (NotDetected) U Benzodiazepines Scrn Not Detected (NotDetected) Urine Cocaine Screen Not Detected (NotDetected) U Marijuana (THC) Screen Detected H (NotDetected) Serum Alcohol mg/dL 11/18/21 11/18/21 Range/Units 15:02 17:00 WBC (3.8-10.6) k/uL RBC (3.80-5.40) m/uL Hgb (11.4-16.0) gm/dL Hct (34.0-46.0) % MCV (80.0-100.0) fL MCH (25.0-35.0) pg MCHC (31.0-37.0) g/dL RDW (11.5-15.5) % Plt Count (150-450) k/uL MPV Neutrophils % % Lymphocytes % % Monocytes % % Eosinophils % % Basophils % % Neutrophils # (1.3-7.7) k/uL Lymphocytes # (1.0-4.8) k/uL Monocytes # (0-1.0) k/uL Eosinophils # (0-0.7) k/uL Basophils # (0-0.2) k/uL Hypochromasia Poikilocytosis Anisocytosis Macrocytosis PT (9.0-12.0) sec INR (<1.2) APTT (22.0-30.0) sec Sample Site L Brach ABG pH 6.81 L* (7.35-7.45) ABG pCO2 56 H (35-45) mmHg ABG pO2 274 H (83-108) mmHg ABG HCO3 9 L* (21-25) mmol/L ABG Total CO2 11 L (19-24) mmol/L ABG O2 Saturation 98.9 H (94-97) % ABG Base Excess -25.6 mmol/L Kofi Test Yes FiO2 100 % Sodium (137-145) mmol/L Potassium (3.5-5.1) mmol/L Chloride (98-107) mmol/L Carbon Dioxide (22-30) mmol/L Anion Gap mmol/L BUN (7-17) mg/dL Creatinine (0.52-1.04) mg/dL Est GFR (CKD-EPI)AfAm (>60 ml/min/1.73 sqM) Est GFR (CKD-EPI)NonAf (>60 ml/min/1.73 sqM) Glucose (74-99) mg/dL Plasma Lactic Acid Dre 10.0 H* (0.7-2.0) mmol/L Calcium (8.4-10.2) mg/dL Total Bilirubin (0.2-1.3) mg/dL AST (14-36) U/L ALT (4-34) U/L Alkaline Phosphatase (38-126) U/L Creatine Kinase (30-135) U/L Troponin I (0.000-0.034) ng/mL Total Protein (6.3-8.2) g/dL Albumin (3.5-5.0) g/dL Urine Color Urine Appearance (Clear) Urine pH (5.0-8.0) Ur Specific [place] (1.001-1.035) Urine Protein (Negative) Urine Glucose (UA) (Negative) Urine Ketones (Negative) Urine Blood (Negative) Urine Nitrite (Negative) Urine Bilirubin (Negative) Urine Urobilinogen (<2.0) mg/dL Ur Leukocyte Esterase (Negative) Urine RBC (0-5) /hpf Urine WBC (0-5) /hpf Amorphous Sediment (None) /hpf Granular Casts (0) /lpf Urine Mucus (None) /hpf Urine Opiates Screen (NotDetected) Ur Oxycodone Screen (NotDetected) Urine Methadone Screen (NotDetected) Ur Propoxyphene Screen (NotDetected) Ur Barbiturates Screen (NotDetected) U Tricyclic Antidepress (NotDetected) Ur Phencyclidine Scrn (NotDetected) Ur Amphetamines Screen (NotDetected) U Methamphetamines Scrn (NotDetected) U Benzodiazepines Scrn (NotDetected) Urine Cocaine Screen (NotDetected) U Marijuana (THC) Screen (NotDetected) Serum Alcohol mg/dL Disposition Clinical Impression: Altered mental status, Hypotension, Respiratory failure, Shock Disposition: Condition: Critical Preliminary Cause of : cardiac arrest Procedures - Sepsis Sepsis Focused Exam #1 Time Sepsis Criteria Met: 16:00 Sepsis Focused Exam #2 Time Sepsis Criteria Met: 16:00
[2021-11-19 11:25] LABS: Anisocytosis Slight; Basophils % (A) 0 %; Eosinophils % (A) 0 %; HGB 11.1 gm/dL (11.4-16.0); Hypochromasia Moderate; Lymphocytes # (A) 0.3 k/uL (1.0-4.8); Lymphocytes % (A) 2 %; MCH 29.9 pg (25.0-35.0); MCHC 30.9 g/dL (31.0-37.0); Macrocytosis Slight; Mean Platelet Volume 11.2; Monocytes # (A) 0.3 k/uL (0-1.0); Monocytes % (A) 2 %; Neutrophils # (A) 12.3 k/uL (1.3-7.7); Neutrophils % (A) 95 %; Platelet Count 65 k/uL (150-450); Poikilocytosis Slight; RBC 3.71 m/uL (3.80-5.40); RDW 17.8 % (11.5-15.5); WBC 12.9 k/uL (3.8-10.6)
--- NOTE | 2021-11-19 11:48 | P.CNNES ---
History of Present Illness Consult date: 11/19/21 Requesting physician: Julienne Treadwell Reason for Consult: cardiac arrest History of Present Illness: This is a 66-year-old woman with medical history of myasthenia gravis, diabetes mellitus, atrial fibrillation who presented emergency department on 11/18/2021 since the patient was becoming progressively more lethargic and less responsive and subsequently the patient was found unresponsive. History was obtained from medical record. Per the medical record is seems EMS found the patient in asystole and CPR was initiated for a total of 25-40 minutes. The patient received a total of 3 doses of epinephrine. As a result the patient was intubated in the ED. Some of the patient home medication per EMR as prednisone 60 mg 1 tablet twice a day, metformin, lisinopril, Mestinon 60 mg once 4 times a day, O [place], m etoprolol, vitamin D 2 Some of the work-up in the hospital consisted of: Blood pressure on presentation to our facility is 48/29, heart rate of 62, respiratory of 4, temperature of 97.0 Fahrenheit and pulse ox of 50 L on BVM. Initial white blood cells 14.3 thousand, and is predominantly neutrophilic. Hemoglobin is 11.4K, hematocrit is 35.3 and platelet is 169,000. Sodium is 144, creatinine is 3.65, calcium is 9.4, AST of 108, ALT of 83, initial serum glucose is 248, initial plasma lactic acid venous 10.0, troponin 0.1904 and a CK level was 235. Urine drug screen is positive for marijuana. The serum alcohol was less than 10 and the rest of the basic urine drug screen is not detected. Gordon virus PCR was not detected. The ABG that pH is 6.81, pCO2 is 56, pO2 was 274. CT of the head is reported as no acute intracranial hemorrhage or midline shift. I personally reviewed the CT of the head and there is no acute or subacute ischemia nor is no intraparenchymal hemorrhage at. There is no significant loss of hutton-white matter differentiation. 2-D echo was reported as severe concentric left ventricular hypertrophy. Ejection fraction of 65-70%.LVOT obstruction. Review of Systems Review of system is limited because of the patient condition but the per po sitive and negative as per HPI. Past Medical History Past Medical History: No Reported History Additional Past Medical History / Comment(s): no family, pt unresponsive. patient has history of myasthenia gravis, the patient also has history of diabetes mellitus History of Any Multi-Drug Resistant Organisms: None Reported Past Surgical History: No Surgical Hx Reported Additional Past Surgical History / Comment(s): no family. pt unresponive. Past Psychological History: No Psychological Hx Reported Smoking Status: Never smoker Past Alcohol Use History: None Reported Past Drug Use History: None Reported - Past Family History Mother Family Medical History: Cancer Additional Family Medical History / Comment(s): lung CA Brother(s) Family Medical History: Cancer Sister(s) Family Medical History: Cancer Additional Family Medical History / Comment(s): breast CA Medications and Allergies Home Medications Medication Instructions Recorded Confirmed Type lisinopriL [Zestril] 20 mg PO HS 04/08/18 08/11/21 History Latanoprost Ophth [Xalatan 0.005%] 1 drop BOTH EYES HS 10/13/19 08/11/21 History Vitamin B Complex 1 each PO DAILY 01/31/20 08/11/21 History Metoprolol Succinate [Toprol XL] 50 mg PO HS 08/13/20 08/11/21 History metFORMIN HCL [Glucophage] 1,000 mg PO HS 08/13/20 08/11/21 History Omeprazole Magnesium [PriLOSEC OTC] 20 mg PO DAILY PRN 02/18/21 08/11/21 History Docusate [Colace] 100 mg PO BID #30 capsule 02/20/21 08/11/21 Rx HYDROcodone/APAP 5-325MG [[place] 1 tab PO Q6HR PRN 3 Days #12 tab 02/20/21 08/11/21 Rx 5-325] Ergocalciferol [Vitamin D2 (1250 1,250 mcg PO Q7D 11/18/21 11/18/21 History Mcg = 18503 Iu)] Metoprolol Succinate (ER) [Toprol 100 mg PO DAILY 11/18/21 11/18/21 History Xl] Omeprazole 40 mg PO DAILY 11/18/21 11/18/21 History Pyridostigmine [Mestinon] 60 mg PO QID 11/18/21 11/18/21 History lisinopriL [Zestril] 20 mg PO DAILY 11/18/21 11/18/21 History metFORMIN HCL [Glucophage] 1,000 mg PO DAILY 11/18/21 11/18/21 History predniSONE [Deltasone] 60 mg PO BID 11/18/21 11/18/21 History Allergies Allergy/AdvReac Type Severity Reaction Status Date / Time No Known Allergies Allergy Verified 11/19/21 13:32 Physical Examination - Vital Signs Vital Signs: Vital Signs Temp Pulse Pulse Resp BP Pulse Ox 11/19/21 09:55 36.9 F L 110 H 30 H 120/43 96 11/19/21 08:39 97.5 F L 62 30 H 76/34 97 11/19/21 07:26 96.4 F L 65 20 135/36 100 11/19/21 06:45 66 30 H 94/41 100 11/19/21 06:00 67 24 112/55 100 11/19/21 05:00 67 30 H 89/65 100 11/19/21 04:00 67 20 74/28 100 11/19/21 03:00 67 16 89/29 100 11/19/21 02:13 76 21 83/68 100 11/19/21 01:30 77 30 H 87/69 100 11/19/21 00:45 82 20 79/63 99 11/19/21 00:00 62 18 44/33 99 11/18/21 23:00 64 20 78/62 99 11/18/21 22:19 67 18 86/60 100 11/18/21 21:19 73 20 91/67 99 11/18/21 20:28 72 86/47 98 11/18/21 20:21 74 11/18/21 20:07 81 30 H 11/18/21 20:01 71 75/53 100 11/18/21 16:52 70 18 98/68 98 11/18/21 16:49 74 18 100/86 100 11/18/21 16:27 75 18 93/76 90 L 11/18/21 15:55 62 18 91/70 79 L 11/18/21 15:45 59 L 18 103/75 81 L 11/18/21 15:27 58 L 18 90/63 11/18/21 15:23 58 L 16 101/74 84 L 11/18/21 15:16 57 L 18 84/56 11/18/21 15:05 57 L 18 67/44 97 11/18/21 14:51 59 L 16 60/36 99 11/18/21 13:51 73 18 69/46 99 11/18/21 13:45 74 16 86/48 98 11/18/21 13:40 74 16 57/34 90 L 11/18/21 13:36 68 4 L 48/29 50 L 11/18/21 13:30 97.0 F L 62 4 L Intake and Output 11/18/21 11/19/21 11/19/21 22:59 06:59 14:59 Intake Total 12.507 235.653 157.224 Balance 12.507 235.653 157.224 Intake: Intake, IV Titration 12.507 235.653 157.224 Amount Norepinephrine 32 mg In 12.507 235.653 157.224 Sodium Chloride 0.9% 218 ml @ 0.05 MCG/KG/MIN 1. 254 mls/hr IV .Q24H [facility] Rx#:[id number] GENERAL: The patient is lying in bed and is not in acute distress. CHEST: The heart rate is regular rate rhythm. No murmurs to auscultation. Patient is on IV Norepinephrine. LUNG: Clear to auscultation bilaterally no wheezing noted throughout. Not labored breathing. Is intubated on ventilator. ABDOMEN/GI: Bowel sounds present in all 4 quadrants. No tenderness to palpation throughout. NEUROLOGICAL: Limited because of patient condition. Patient is not on sedation. Higher mental function: The patient is comatose: GCS3 (E1, VT1, M1). No following commands or verbalizing. Cranial nerves: The pupils are round, about 3-4mm equal and non-reactive to light. Primary gaze is midline. Negative corneal reflex bilaterally. Negative occulocephalic reflex. NO facial weakness. Not breathing over the vetn (was set at 30 but until taking down to 8 was still not breathing over the vent). Motor: The strength is limited because of her condition. No spontaneous movement noted. No withdrawl to painful stimuli throughout. Decrease tone throughout. Normal bulk. Cerebellum: Unable to assess. Sensation: Unable to assess light touch and no movement to painful stimuli. Reflexes (right/left): 0 throughout. Plantars are mute bilaterally. Results - Laboratory Findings CBC and BMP: 11/19/21 10:45 11/19/21 10:45 Abnormal Lab Findings: Abnormal Labs 11/18/21 11/18/21 11/18/21 13:43 13:43 13:43 WBC 14.3 H RBC 3.64 L RDW 17.2 H Neutrophils # 13.2 H Lymphocytes # 0.5 L APTT 35.8 H ABG pH ABG pCO2 ABG pO2 ABG HCO3 ABG Total CO2 ABG O2 Saturation Chloride 126 H Carbon Dioxide 8 L* BUN 73 H Creatinine 3.65 H Glucose 248 H Plasma Lactic Acid Dre AST 108 H ALT 83 H Creatine Kinase Troponin I Total Protein 5.9 L Albumin 2.8 L Urine Appearance Urine Protein Urine WBC Amorphous Sediment Urine Mucus U Marijuana (THC) Screen 11/18/21 11/18/21 11/18/21 13:43 14:16 14:20 WBC RBC RDW Neutrophils # Lymphocytes # APTT ABG pH ABG pCO2 ABG pO2 ABG HCO3 ABG Total CO2 ABG O2 Saturation Chloride Carbon Dioxide BUN Creatinine Glucose Plasma Lactic Acid Dre AST ALT Creatine Kinase 235 H Troponin I 0.104 H* Total Protein Albumin Urine Appearance Cloudy H Urine Protein 2+ H Urine WBC 8 H Amorphous Sediment Occasional H Urine Mucus Rare H U Marijuana (THC) Screen Detected H 11/18/21 11/18/21 11/18/21 15:02 17:00 20:50 WBC RBC RDW Neutrophils # Lymphocytes # APTT ABG pH 6.81 L* ABG pCO2 56 H ABG pO2 274 H ABG HCO3 9 L* ABG Total CO2 11 L ABG O2 Saturation 98.9 H Chloride Carbon Dioxide BUN Creatinine Glucose Plasma Lactic Acid Dre 10.0 H* 9.8 H* AST ALT Creatine Kinase Troponin I Total Protein Albumin Urine Appearance Urine Protein Urine WBC Amorphous Sediment Urine Mucus U Marijuana (THC) Screen 11/18/21 23:45 WBC RBC RDW Neutrophils # Lymphocytes # APTT ABG pH ABG pCO2 ABG pO2 ABG HCO3 ABG Total CO2 ABG O2 Saturation Chloride Carbon Dioxide BUN Creatinine Glucose Plasma Lactic Acid Dre 7.4 H* AST ALT Creatine Kinase Troponin I Total Protein Albumin Urine Appearance Urine Protein Urine WBC Amorphous Sediment Urine Mucus U Marijuana (THC) Screen Assessment and Plan Assessment: Altered mental status due to anoxic encephalopathy from cardiac arrest (and was resuscitated for total of 25-40 minutes). Also component of metabolic encephalopathy Acute hypoxic respiratory failure due to above whot is intubated and on mechanical ventilation Acute shock/hypotensive possibly cardiogenic/hypovolemic shock and patient is on norepinephrine Acute kidney injury Hepatic shock as a result of the cardiac arrest Serum myasthenia gravis History of diabetes mellitus Plan: Ordered a routine EEG. I'll not start the patient on antiepileptic drugs unless there is epileptiform discharges or seizure on the EEG. Nephrology is on consulted Cardiology team is consulted We'll defer the rest of medical management to the primary and ICU team His avoid any hypotensive episodes currently the patient is on norepinephrine. We'll defer the management to the primary and ICU team. Condition is critical and no brainstem reflex noted at this time. The plan is discussed with the patient's nurse. Thank You for the consultation. UPDATE: Patient became pulseless and time of was at 1104am today. Ariel Bullard MD Neuro-Hospitalist Time with Patient: Greater than 30
[2021-11-19 11:55] LABS: African American GFR (CKD) 15 (>60 ml/min/1.73 sqM); Albumin 1.9 g/dL (3.5-5.0); Alkaline Phosphatase 67 U/L (38-126); Blood Urea Nitrogen 73 mg/dL (7-17); Calcium 6.8 mg/dL (8.4-10.2); Chloride 129 mmol/L (98-107); Glucose 63 mg/dL (74-99); Non-African American GFR(CKD) 13 (>60 ml/min/1.73 sqM); Potassium 5.7 mmol/L (3.5-5.1); Sodium 150 mmol/L (137-145); Total Bilirubin 1.7 mg/dL (0.2-1.3); Total Protein 4.5 g/dL (6.3-8.2)
[2021-11-19 12:42] LABS: Carbon Dioxide <5 mmol/L (22-30)
--- NOTE | 2021-11-19 12:51 | EEG ---
ELECTROENCEPHALOGRAM REPORT DATE OF SERVICE: 11/19/2021. CLINICAL HISTORY: This is a 66-year-old woman who presented to the emergency department on 11/18/2021 as a result of a cardiac arrest and continues to have altered mental status. RELEVANT MEDICATION: The patient is not on any antiepileptic drug. EEG TYPE: A routine 21-channel EEG is performed with video using the 10/20 electrode placement system. DESCRIPTION: The patient is intubated on a ventilator. Regarding the background, there is no appreciable brain activity noted throughout the entire routine EEG. There is no focal slowing. Interictal and ictal is none. ACTIVATION PROCEDURE: Photic stimulation and hyperventilation are not performed. CLINICAL INTERPRETATION: This is an abnormal routine EEG. There is no appreciable brain activity noted throughout the entire routine EEG study. There is no epileptiform or seizure activity noted. Clinical correlation is recommended. BEV / KIN: [id number] / [id number]
[2021-11-19 13:10] LABS: AST 4166 U/L (14-36)
[2021-11-19 13:14] LABS: Polychromasia Present
[2021-11-19 13:33] LABS: ALT 4543 U/L (4-34)
[2021-11-19] MEDS ORDERED: LEVOFLOXACIN 750MG-D5W PMX 750 MG in DEXTROSE/WATER 1 150ML.BAG IVPB SCH (16:00)
== END 2021-11-19 11:13 | disposition expired | DRG 91 ==
LOC: EC 13:30 → 2SICU 17:03 → MERGE 17:03 → 2SICU 11-19 03:38
PROVIDERS: ADMIT Family Medicine; ATTEND Family Medicine
PROC: 02HV33Z Insertion of Infusion Device into Superior Vena Cava, Percutaneous Approach (ICD-10-PCS; principal; 2021-11-18)
PROC: 5A1935Z Respiratory Ventilation, Less than 24 Consecutive Hours (ICD-10-PCS; principal; 2021-11-18)
PROC: 5A12012 Performance of Cardiac Output, Single, Manual (ICD-10-PCS; principal; 2021-11-18)
PROC: 0D9670Z Drainage of Stomach with Drainage Device, Via Natural or Artificial Opening (ICD-10-PCS; principal; 2021-11-18)
PROC: 0B9J8ZX Drainage of Left Lower Lung Lobe, Via Natural or Artificial Opening Endoscopic, Diagnostic (ICD-10-PCS; 2021-11-18)
PROC: 0BH17EZ Insertion of Endotracheal Airway into Trachea, Via Natural or Artificial Opening (ICD-10-PCS; 2021-11-18)
PROC: 3E033XZ Introduction of Vasopressor into Peripheral Vein, Percutaneous Approach (ICD-10-PCS; 2021-11-18)
PROC: 0BC78ZZ Extirpation of Matter from Left Main Bronchus, Via Natural or Artificial Opening Endoscopic (ICD-10-PCS; 2021-11-18)
DX: G93.1 Anoxic brain damage, not elsewhere classified (principal); G93.41 Metabolic encephalopathy; J96.01 Acute respiratory failure with hypoxia; J96.02 Acute respiratory failure with hypercapnia; K72.00 Acute and subacute hepatic failure without coma; N17.0 Acute kidney failure with tubular necrosis; E87.2 Acidosis; I42.1 Obstructive hypertrophic cardiomyopathy; J98.11 Atelectasis; T17.890A Other foreign object in other parts of respiratory tract causing asphyxiation, initial encounter; J98.19 Other pulmonary collapse; T88.4XXA Failed or difficult intubation, initial encounter; E66.01 Morbid (severe) obesity due to excess calories; Z20.822 Contact with and (suspected) exposure to COVID-19; Z68.23 Body mass index [BMI] 23.0-23.9, adult; Z66 Do not resuscitate; I46.9 Cardiac arrest, cause unspecified; R79.89 Other specified abnormal findings of blood chemistry; R57.0 Cardiogenic shock; R57.1 Hypovolemic shock; R41.82 Altered mental status, unspecified; E11.9 Type 2 diabetes mellitus without complications; G70.00 Myasthenia gravis without (acute) exacerbation; G71.00 Muscular dystrophy, unspecified; I10 Essential (primary) hypertension; I45.10 Unspecified right bundle-branch block; I48.91 Unspecified atrial fibrillation; Z79.84 Long term (current) use of oral hypoglycemic drugs; Z79.899 Other long term (current) drug therapy; Z80.1 Family history of malignant neoplasm of trachea, bronchus and lung; Z80.3 Family history of malignant neoplasm of breast; Z83.49 Family history of other endocrine, nutritional and metabolic diseases; Z79.52 Long term (current) use of systemic steroids
CPT/HCPCS: 31500; 36415; 36556; 36600; 70450; 71045; 80053; 80306; 80320; 81001; 82550; 82805; 83605; 84443; 84484; 85025; 85610; 85730; 87040; 87070; 87075; 87077; 87102; 87116; 87186; 87205; 87206; 87252; 87496; 87498; 87502; 87529; 87634; 87635; 87798; 88108; 88305; 93005; 93306; 94002; 94003; 94640; 95822; 96361; 96374; 96375; 96376; 99291